=== PATIENT | female | born 1960 | race Caucasian/White ===

== ENCOUNTER 2016-11-26 05:49 | Inpatient (IN) | payer OTHER ==
[2016-11-26] VITALS (11 sets, daily range): BP systolic 94–152; BP diastolic 56–91; PULSE 60–98; RESP 18–24; TEMP 97.3–98.6; O2SAT 95–98
[~2016-11-26] VITALS: Ht 177.8 cm; Wt 71.0 kg
[~2016-11-26 05:49] MED LIST: HYDR-3533 PO; IBUP800T23 PO
[2016-11-26] MEDS ORDERED: SODIUM CHLOR 0.9% 1000 ML INJ 1,000 ML IV ONE (06:20)
--- NOTE | 2016-11-26 06:26 | PD ---
HPI Chief Complaint: Flank/Kidney Pain Time Seen by Provider: 06:20 Travel History International Travel<30 days: No Contact w/Intl Traveler<30days: No Traveled to known affect area: No History of Present Illness HPI 56-year-old female who was here earlier for back pain states the pain medication she was given at home is not helping. She states it is on the left side. It is severe. Pain is worse with movement. She denies other associated symptoms. She denies any trauma. Duration is past couple of days. PFSH Past Medical History Cancer: Yes (breast) Tetanus Vaccination: Unknown ?: Not Past Surgical History Other Surgery: Yes (right lumpectomy) Social History Alcohol Use: No Tobacco Use: Yes (10 CIG PER TODAY) Substance Use: No Allergies-Medications (Allergen,Severity, Reaction): Coded Allergies: Aspirin (Verified Allergy, Severe, Anaphylaxis, 11/26/16) Reported Meds & Prescriptions Reported Meds & Active Scripts Active Lortab (Hydrocodone-Acetaminophen) 5-325 Mg Tab 1-2 Tab PO Q6H PRN Ibuprofen 800 Mg Tab 800 Mg PO Q8H PRN Review of Systems Except as stated in HPI: all other systems reviewed are Neg Physical Exam Narrative GENERAL: Well-nourished, well-developed patient. SKIN: Warm and dry. HEAD: Normocephalic and atraumatic. EYES: No injection or drainage. ENT: No nasal drainage noted. NECK: Supple, trachea midline. CARDIOVASCULAR: Regular rate and rhythm RESPIRATORY: No increased effort. No accessory muscle use. GASTROINTESTINAL: Abdomen soft, non-tender, nondistended. EXTREMITIES: No edema. BACK: Nontender without obvious deformity in midline, tender to left lateral lumbar back area just below CVA. NEUROLOGICAL: Awake and alert. Motor and sensory grossly within normal limits. Normal speech. Data Data Last Documented VS Vital Signs Date Time Temp Pulse Resp B/P Pulse Ox O2 Delivery O2 Flow Rate FiO2 11/26/16 05:51 98.0 98 18 152/91 97 Room Air Orders Urinalysis - C+S If Indicated (11/26/16 06:10) Complete Blood Count With Diff (11/26/16 06:20) Basic Metabolic Panel (Bmp) (11/26/16 06:20) Ct Abd/Pel W/O Iv Contrast (11/26/16 06:20) Ecg Monitoring (11/26/16 06:20) Iv Access Insert/Monitor (11/26/16 06:20) Ketorolac Inj (Toradol Inj) (11/26/16 06:30) Ondansetron Inj (Zofran Inj) (11/26/16 06:30) Sodium Chloride 0.9% Flush (Ns Flush) (11/26/16 06:30) Sodium Chlor 0.9% 1000 Ml Inj (Ns 1000 M (11/26/16 06:20) Labs Laboratory Tests Test 11/26/16 11/26/16 06:15 06:25 Urine Color YELLOW Urine Turbidity CLEAR Urine pH 6.0 Urine Specific [place] 1.006 Urine Protein NEG mg/dL Urine Glucose (UA) NEG mg/dL Urine Ketones NEG mg/dL Urine Occult Blood NEG Urine Nitrite NEG Urine Bilirubin NEG Urine Urobilinogen LESS THAN 2.0 MG/DL Urine Leukocyte Esterase SMALL Urine RBC 1 /hpf Urine WBC 2 /hpf Urine Squamous Epithelial 1 /hpf Cells Urine Transitional Epithelial <1 /hpf Cells Urine Bacteria RARE /hpf Microscopic Urinalysis Comment CULT NOT INDICATED White Blood Count 10.8 TH/MM3 Red Blood Count 5.22 MIL/MM3 Hemoglobin 14.6 GM/DL Hematocrit 42.6 % Mean Corpuscular Volume 81.6 FL Mean Corpuscular Hemoglobin 28.0 PG Mean Corpuscular Hemoglobin 34.4 % Concent Red Cell Distribution Width 15.6 % Platelet Count 299 TH/MM3 Mean Platelet Volume 8.9 FL Neutrophils (%) (Auto) 74.1 % Lymphocytes (%) (Auto) 15.2 % Monocytes (%) (Auto) 7.7 % Eosinophils (%) (Auto) 2.2 % Basophils (%) (Auto) 0.8 % Neutrophils # (Auto) 8.0 TH/MM3 Lymphocytes # (Auto) 1.6 TH/MM3 Monocytes # (Auto) 0.8 TH/MM3 Eosinophils # (Auto) 0.2 TH/MM3 Basophils # (Auto) 0.1 TH/MM3 CBC Comment DIFF FINAL Differential Comment MDM Medical Decision Making Medical Screen Exam Complete: Yes Emergency Medical Condition: Yes Medical Record Reviewed: Yes (past history confirm) Differential Diagnosis UTI, stone, musculoskeletal Narrative Course Will check blood work, urine, CT and dose with Toradol and IV fluids and reevaluate Physician Communication Physician Communication dr gershen agrees to follow workup and reeval Hird,Nimisha May MD Nov 26, 2016 06:26
[2016-11-26 06:27] LABS: BACTERIA, URINE RARE /hpf; BLOOD, URINE NEG (NEG); COMMENT (UR) CULT NOT INDICATED; CULTURE IF INDICATED CULT NOT INDICATED; GLUCOSE,URINE NEG (NEG); KETONE, URINE NEG (NEG); NITRITE,URINE NEG (NEG); SQUAMOUS EPITHELIAL CELL URINE 1 /hpf (0-5); TRANSITIONAL EPI CELLS, URINE <1 /hpf; URINE COLOR YELLOW (YELLW/STRAW)
[2016-11-26] MEDS ORDERED: KETOROLAC TROMETHAMINE 30 MG/ML (IVP) VIAL IVP ONE (06:30)
[2016-11-26] MEDS ORDERED: SODIUM CHLORIDE 0.9% FLUSH 5 ML FLUSH IVF PRN (06:30)
[2016-11-26] MEDS ORDERED: ONDANSETRON HCL 4 MG/2 ML VIAL IVP ONE (06:30)
[2016-11-26 07:00] LABS: BASOPHIL # 0.1 TH/MM3 (0-0.2); BASOPHIL % 0.8 % (0.0-2.0); EOSINOPHIL # 0.2 TH/MM3 (0-0.4); EOSINOPHIL % 2.2 % (0.0-4.0); HEMATOCRIT 42.6 % (35.0-46.0); HEMO FLAGS DIFF FINAL; LYMPH % 15.2 % (9.0-44.0); LYMPHOCYTE # 1.6 TH/MM3 (1.0-4.8); MEAN CELL VOLUME 81.6 FL (80.0-100.0); MEAN CORPUSCULAR HGB CONC 34.4 % (32.0-36.0); MONO % 7.7 % (0.0-8.0); NEUT % 74.1 % (16.0-70.0); PLATELET COUNT 299 TH/MM3 (150-450); RED BLOOD COUNT 5.22 MIL/MM3 (4.00-5.30); RED CELL DISTRIBUTION WIDTH 15.6 % (11.6-17.2); WHITE BLOOD COUNT 10.8 TH/MM3 (4.0-11.0)
[2016-11-26 07:19] LABS: BICARBONATE 27.2 MEQ/L (21.0-32.0)
--- NOTE | 2016-11-26 07:30 | RADRPT ---
EXAM DATE/TIME: 11/26/2016 07:05 [place] COMPARISON: No previous studies available for comparison. INDICATIONS : Right side back pain. Prior history of left renal stones ORAL CONTRAST: No oral contrast ingested. RADIATION DOSE: 6.41 CTDIvol (mGy) MEDICAL HISTORY : Carcinoma, breast. SURGICAL HISTORY : left lumpectomu ENCOUNTER: Initial ACUITY: 3 days PAIN SCALE: 10/10 LOCATION: Right abdomen/back TECHNIQUE: Volumetric scanning of the abdomen and pelvis was performed. Using automated exposure control and ad justment of the mA and/or kV according to patient size, radiation dose was kept as low as reasonably achievable to obtain optimal diagnostic quality images. FINDINGS: LOWER LUNGS: The visualized lower lungs are clear. LIVER: Homogeneous density without lesion. There is no dilation of the biliary tree. No calcified gallston es. SPLEEN: Normal size without lesion. PANCREAS: Within normal limits. KIDNEYS: There is a 3 mm right upper pole stone, nonobstructing. No other renal or ureteral calculi. No hydron ephrosis or hydroureter. Urinary bladder has a normal CT appearance. ADRENAL GLANDS: 1 cm left adrenal nodule with low Hounsfield unit measurement. VASCULAR: There is no aortic aneurysm. BOWEL/MESENTERY: The stomach, small bowel, and colon demonstrate no acute abnormality. There is no free intraperitone al air or fluid. The appendix is well-visualized and normal. ABDOMINAL WALL: Within normal limits. RETROPERITONEUM: There is no lymphadenopathy. BLADDER: No wall thickening or mass. REPRODUCTIVE: Within normal limits. INGUINAL: There is no lymphadenopathy or hernia. MUSCULOSKELETAL: Innumerable blastic lesions are seen in the visualized osseous structures including right ninth rib a ll visualized lumbar, sacral vertebral bodies and also T12, bony pelvis and right greater than left p roximal femora. There are scattered areas of jerson cortical destruction of the left iliac bone. These findings are not compatible with Paget's disease. There is suspected nondisplaced pathologic fractur ing of both sacral ala, for example series 601 image 71. CONCLUSION: 1. Numerous and extensive blastic lesions of the visualized osseous structures as above compatible wi th metastatic disease. In a female patient, breast carcinoma would be most likely. There is nondispla nilton pathologic fracturing of both sacral ala. There is patchy cortical destruction of the left iliac bone. 2. 3 mm nonobstructing stone of the right kidney. 3. Benign-appearing left adrenal adenoma. Jag Mckeon MD on November 26, 2016 at 7:21 Board Certified Radiologist. This report was verified electronically.
[2016-11-26] MEDS ORDERED: MORPHINE SULFATE 4 MG/ML INJ IV PUSH ONE (07:45)
[2016-11-26] MEDS ORDERED: HYDROmorphone HCL PF 1 MG/ML VIAL IV PUSH ONE ×3 (08:15→15:30)
--- NOTE | 2016-11-26 08:27 | PD ---
Physical Exam Narrative Patient signed out to me by Dr. Lowe to follow-up CAT scan and labs. Please see her note for complete details on history and physical. Briefly, patient came in complaining of back pain. She has history of kidney stones in the past. Labs were sent and CT was ordered. Patient was given IV fluids as well as Toradol. Data Data Last Documented VS Vital Signs Date Time Temp Pulse Resp B/P Pulse Ox O2 Delivery O2 Flow Rate FiO2 11/26/16 08:45 20 11/26/16 08:16 65 128/77 97 Room Air 11/26/16 05:51 98.0 Orders Urinalysis - C+S If Indicated (11/26/16 06:10) Complete Blood Count With Diff (11/26/16 06:20) Basic Metabolic Panel (Bmp) (11/26/16 06:20) Ct Abd/Pel W/O Iv Contrast (11/26/16 06:20) Ecg Monitoring (11/26/16 06:20) Iv Access Insert/Monitor (11/26/16 06:20) Ketorolac Inj (Toradol Inj) (11/26/16 06:30) Ondansetron Inj (Zofran Inj) (11/26/16 06:30) Sodium Chloride 0.9% Flush (Ns Flush) (11/26/16 06:30) Sodium Chlor 0.9% 1000 Ml Inj (Ns 1000 M (11/26/16 06:20) Morphine Inj (Morphine Inj) (11/26/16 07:45) Hydromorphone Pf Inj (Dilaudid Pf Inj) (11/26/16 08:15) Hydromorphone Pf Inj (Dilaudid Pf Inj) (11/26/16 09:00) Admit Order (Ed Use Only) (11/26/16 ) Labs Laboratory Tests Test 11/26/16 11/26/16 06:15 06:25 Urine Color YELLOW Urine Turbidity CLEAR Urine pH 6.0 Urine Specific [place] 1.006 Urine Protein NEG mg/dL Urine Glucose (UA) NEG mg/dL Urine Ketones NEG mg/dL Urine Occult Blood NEG Urine Nitrite NEG Urine Bilirubin NEG Urine Urobilinogen LESS THAN 2.0 MG/DL Urine Leukocyte Esterase SMALL Urine RBC 1 /hpf Urine WBC 2 /hpf Urine Squamous Epithelial 1 /hpf Cells Urine Transitional Epithelial <1 /hpf Cells Urine Bacteria RARE /hpf Microscopic Urinalysis Comment CULT NOT INDICATED White Blood Count 10.8 TH/MM3 Red Blood Count 5.22 MIL/MM3 Hemoglobin 14.6 GM/DL Hematocrit 42.6 % Mean Corpuscular Volume 81.6 FL Mean Corpuscular Hemoglobin 28.0 PG Mean Corpuscular Hemoglobin 34.4 % Concent Red Cell Distribution Width 15.6 % Platelet Count 299 TH/MM3 Mean Platelet Volume 8.9 FL Neutrophils (%) (Auto) 74.1 % Lymphocytes (%) (Auto) 15.2 % Monocytes (%) (Auto) 7.7 % Eosinophils (%) (Auto) 2.2 % Basophils (%) (Auto) 0.8 % Neutrophils # (Auto) 8.0 TH/MM3 Lymphocytes # (Auto) 1.6 TH/MM3 Monocytes # (Auto) 0.8 TH/MM3 Eosinophils # (Auto) 0.2 TH/MM3 Basophils # (Auto) 0.1 TH/MM3 CBC Comment DIFF FINAL Differential Comment Sodium Level 137 MEQ/L Potassium Level 4.0 MEQ/L Chloride Level 101 MEQ/L Carbon Dioxide Level 27.2 MEQ/L Anion Gap 9 MEQ/L Blood Urea Nitrogen 13 MG/DL Creatinine 0.82 MG/DL Estimat Glomerular Filtration 72 ML/MIN Rate Random Glucose 120 MG/DL Calcium Level 9.4 MG/DL [facility] [place] Supervised Visit with RIGO: No Narrative Course CAT scan is significant for several lytic lesions throughout the spine as well as pathological fractures of the sacral ala. Patient has a history of breast cancer that was treated she says either 3 or 5 years ago. She reports having a mammogram 4 months ago that she was told was normal. She says she had a biopsy of her spine in [facility] and was told that it was normal. Patient states she knows she has cancer. She does not have any doctors here. Patient is in significant pain. Given morphine for pain. Patient states the morphine did not help, given 1 mg Dilaudid. Patient was placed in observation for pain management. Diagnosis Primary Impression: Osteolytic lesion due to metastasis Additional Impression: Low back pain Qualified Code: M54.5 - Midline low back pain without sciatica, unspecified chronicity Admitting Information Admitting Physician Requests: Observation Condition: Stable Noemy You MD Nov 26, 2016 08:27
[2016-11-26] MEDS ORDERED: MORPHINE SULFATE 4 MG/ML INJ IV PUSH PRN (10:30)
[2016-11-26] MEDS ORDERED: KETOROLAC TROMETHAMINE 30 MG/ML (IVP) VIAL IV PUSH ONE (11:30)
--- NOTE | 2016-11-26 11:33 | HHI.HP ---
[facility] Service Family Medicine Primary Care Physician No Primary Care Physician Admission Diagnosis Metastatic lesions to the spine, severe back pain Diagnoses: International Travel<30 Days: No Contact w/Intl Traveler<30days: No Known Affected Area: No History of Present Illness Patient is a 56-year-old woman with a history of breast cancer presents with intractable back pain, found to have lytic lesions and pathological fractures on imaging. Patient presents today with her boyfriend who she lives with, who is translating for us. She came to the emergency department today because her progressively worsening pain has become unbearable, she couldn't stand, and she hasn't slept in 48 hours despite taking 60 mg of morphine XR every 2 hours. She was first diagnosed and treated for breast cancer in 2012. She underwent lumpectomy and then partial mastectomy as well as radiation therapy in [place] at that time. She denied receiving any chemotherapy. About 4-5 months ago, while she was living hungry, they saw what looked like bone cancer on imaging of her back, did a bone biopsy, which did not show any cancer. For over a year, patient has had progressively worsening back pain, worse on the right than the left. Patient reports that the medication she received in the emergency department only relieved about 10% of her pain. (Luis Miguel Rider MD R1) Review of Systems Constitutional: DENIES: Fever, Chills Endocrine: DENIES: Polyuria (urinating only a small amount) Eyes: DENIES: Blurred vision, Vision loss, Double Vision Ears, nose, mouth, throat: DENIES: Ear Pain Respiratory: DENIES: Cough, Shortness of breath Cardiovascular: DENIES: Chest pain, Palpitations, Syncope, Dyspnea on Exertion Gastrointestinal: DENIES: Abdominal pain, Black stools, Bloody stools, Constipation, Diarrhea, Nausea, Vomiting, Difficulty Swallowing Genitourinary: DENIES: Dysuria Musculoskeletal: COMPLAINS OF: Back pain, DENIES: Joint pain, Muscle aches Integumentary: DENIES: Rash Neurologic: DENIES: Headache, Localized weakness, Paresthesias, Seizures ( Luis Miguel Rider MD R1) Past Family Social History Past Medical History denies any other medical problems besides breast cancer Past Surgical History spine biopsy Abdominoplasty Reported Medications XR morphine Zoledronic acid (Luis Miguel Rider MD R1) Allergies: Coded Allergies: Aspirin (Verified Allergy, Severe, Anaphylaxis, 11/26/16) Active Ordered Medications Current Medications Medications (Trade) Dose Ordered Sig/Dave Route Start Time Stop Time Status Last Admin Ketorolac Tromethamine 30 mg 30 mg Q6HR IV PUSH 11/26/16 18:00 12/01/16 17:59 (NS 1000 ml Inj) 1,000 ml @ 100 mls/hr Q10H IV 11/26/16 11:48 11/26/16 12:43 (NS Flush) 2 ml UNSCH PRN FLUSH 11/26/16 12:00 (NS Flush) 2 ml BID FLUSH 11/26/16 21:00 (Narcan Inj) 0.4 mg UNSCH PRN IV 11/26/16 12:00 (Lovenox Inj) 40 mg Q24H SQ 11/26/16 13:00 11/26/16 13:21 (Tylenol) 650 mg Q6H PRN PO 11/26/16 12:00 (Dilaudid Pf Inj) 0.5 mg Q3H PRN IV 11/26/16 12:00 (Habitrol 21 Mg Patch.24 Hr) 1 patch DAILY TD 11/26/16 14:45 11/26/16 14:49 Miscellaneous Information 1 DAILY TD 11/27/16 09:00 (Dilaudid Pf Inj) 2 mg Q3H PRN IV 11/26/16 18:00 (Oramorph Sr) 60 mg Q12H PO 11/27/16 04:00 (Msir) 30 mg Q4H PRN PO 11/26/16 17:00 Family History Her mother had diabetes and her father at 74 years old of leukemia. Social History Patient reports smoking half a pack to a pack per day for the past greater than 20 years since she was 23 years old. She denied any alcohol or illicit drug use. She lives with her boyfriend. She does not work. 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 They're working on getting her insurance through Medicare. (Luis Miguel Rider MD R1) Physical Exam Vital Signs Vital Signs Date Time Temp Pulse Resp B/P Pulse Ox O2 Delivery O2 Flow Rate FiO2 11/26/16 10:04 20 11/26/16 08:45 20 11/26/16 08:16 65 24 128/77 97 Room Air 11/26/16 07:48 20 11/26/16 07:48 20 11/26/16 05:51 98.0 98 18 152/91 97 Room Air Physical Exam GENERAL: This is a well-nourished, well-developed patient, who appears uncomfortable and on the verge of tears due to pain SKIN: No rashes, ecchymoses or lesions. Cool and dry. HEAD: Atraumatic. Normocephalic. EYES: Pupils equal round and reactive. Extraocular motions intact. No scleral icterus. No injection or drainage. ENT: Nose without bleeding, purulent drainage. Throat without erythema, tonsillar hypertrophy or exudate. Uvula midline. Airway patent. NECK: Trachea midline. No JVD or lymphadenopathy. Supple, nontender, no meningeal signs. CARDIOVASCULAR: Regular rate and rhythm without murmurs, gallops, or rubs. RESPIRATORY: Clear to auscultation. Breath sounds equal bilaterally. No wheezes , rales, or rhonchi. GASTROINTESTINAL: Abdomen soft, non-tender, nondistended. No guarding. BACK: 8 cm scar down the midline of the lumbar spine. Tender to palpation right greater than left. MUSCULOSKELETAL: Extremities without clubbing, cyanosis, or edema. No joint tenderness, effusion, or edema noted. No calf tenderness. NEUROLOGICAL: Awake and alert. Cranial nerves II through XII grossly intact. Motor and sensory grossly within normal limits. Normal speech. Laboratory Laboratory Tests Test 11/26/16 11/26/16 06:15 06:25 Urine Color YELLOW Urine Turbidity CLEAR Urine pH 6.0 Urine Specific [place] 1.006 Urine Protein NEG Urine Glucose (UA) NEG Urine Ketones NEG Urine Occult Blood NEG Urine Nitrite NEG Urine Bilirubin NEG Urine Urobilinogen LESS THAN 2.0 Urine Leukocyte Esterase SMALL Urine RBC 1 Urine WBC 2 Urine Squamous Epithelial 1 Cells Urine Transitional Epithelial <1 Cells Urine Bacteria RARE Microscopic Urinalysis Comment CULT NOT INDICATED White Blood Count 10.8 Red Blood Count 5.22 Hemoglobin 14.6 Hematocrit 42.6 Mean Corpuscular Volume 81.6 Mean Corpuscular Hemoglobin 28.0 Mean Corpuscular Hemoglobin 34.4 Concent Red Cell Distribution Width 15.6 Platelet Count 299 Mean Platelet Volume 8.9 Neutrophils (%) (Auto) 74.1 Lymphocytes (%) (Auto) 15.2 Monocytes (%) (Auto) 7.7 Eosinophils (%) (Auto) 2.2 Basophils (%) (Auto) 0.8 Neutrophils # (Auto) 8.0 Lymphocytes # (Auto) 1.6 Monocytes # (Auto) 0.8 Eosinophils # (Auto) 0.2 Basophils # (Auto) 0.1 CBC Comment DIFF FINAL Differential Comment Sodium Level 137 Potassium Level 4.0 Chloride Level 101 Carbon Dioxide Level 27.2 Anion Gap 9 Blood Urea Nitrogen 13 Creatinine 0.82 Estimat Glomerular Filtration 72 Rate Random Glucose 120 Calcium Level 9.4 (Luis Miguel Rider MD R1) Result Diagram: 11/26/1662411/26/16624 Imaging Last Impressions Abdomen/Pelvis CT 11/26/16619 Signed Impressions: Service Date/Time: , November 26, 2016 07:05 - CONCLUSION: 1. Numerous and extensive blastic lesions of the visualized osseous structures as above compatible with metastatic disease. In a female patient, breast carcinoma would be most likely. There is nondisplaced pathologic fracturing of both sacral ala. There is patchy cortical destruction of the left iliac bone. 2. 3 mm nonobstructing stone of the right kidney. 3. Benign-appearing left adrenal adenoma. Jag Mckeon MD Course In the emergency depart, patient received UA, normal saline 1 liter IV, Zofran 4 mg IV push 1, Toradol 30 mg IV push 1, CT abdomen and pelvis without contrast, BMP, CBC, morphine 4 mg IV push 1, Dilaudid 1 mg IV push 1, Dilaudid 0.5 mg IV push 1 (Luis Miguel Rider MD R1) Assessment and Plan Assessment and Plan Patient is a 56-year-old woman with a history of breast cancer s/p partial mastectomy and radiation therapy who presents with intractable back pain, found to have lytic lesions and pathological fractures on imaging. She presented to the emergency department today because her progressively worsening pain has become unbearable, she couldn't stand, and she hasn't slept in 48 hours despite taking 60 mg of morphine XR every 2 hours. Admitted for pain control and likely metastatic cancer workup. Code Status DNR/no code Discussed Condition With Patient seen and discussed with Dr. Tereso Duval and Dr. Daina Duval. (Luis Miguel Rider MD R1) Attending Attestation Patient seen and examined. Case reviewed and discussed with the resident team. Agree with plan of care as discussed with me and documented in the resident note. (Diana Duval MD) Problem List: (1) Osteolytic lesion due to metastasis Status: Acute Plan: Patient is a 56-year-old woman with a history of breast cancer s/p partial mastectomy and radiation therapy who presents with intractable back pain , found to have lytic lesions and pathological fractures on imaging. She presented to the emergency department today because her progressively worsening pain has become unbearable, she couldn't stand, and she hasn't slept in 48 hours despite taking 60 mg of morphine XR every 2 hours. Admitted for pain control and likely metastatic cancer workup. Consult medical oncology BMP, CBC, CA 15-3, CEA Normal saline IV 100 mL per hour Pain control discussed at length with pharmacy: * Tylenol 650 mA by mouth every 6 hours when necessary for pain 1-2 * Dilaudid 0.5 mg IV every 3 hours when necessary for pain 3-5 * Dilaudid 2 mg IV every 3 hours when necessary for pain 6-10 * Poor at all 30 mg IV push every 6 hours scheduled around the clock * Morphine SR 60 mg by mouth every 12 hours scheduled around the clock * Morphine IR 30 mg by mouth every 4 hours when necessary for breakthrough pain * If not sufficient, change morphine SR to fentanyl patch 50 g Lindsey-Colace one tab by mouth twice a day (2) Low back pain Status: Acute Plan: See assessment and plan above. (3) Nutrition, metabolism, and development symptoms Status: Acute Plan: Fluids: Maintenance fluids with normal saline IV 100 mL/h Electrolytes: Monitor and replete as needed Nutrition: Regular diet as tolerated GI prophylaxis: Not currently indicated at this time (4) No contraindication to deep vein thrombosis (DVT) prophylaxis Status: Acute Plan: Given history of cancer and likely metastatic disease on imaging, Lovenox is the preferred anticoagulant. Lovenox 40 mg subcutaneous every 12 hours (5) Tobacco use Status: Acute Plan: Patient smokes between half pack to a pack a day. Nicotine 21 mg patch 1 patch TD daily (Luis Miguel Rider MD R1) Physician Certification 2 Midnight Certification Type: Admission for Inpatient Services Order for Inpatient Services The services are ordered in accordance with Medicare regulations or non- Medicare payer requirements, as applicable. In the case of services not specified as inpatient-only, they are appropriately provided as inpatient services in accordance with the 2-midnight benchmark. Estimated LOS (days): 2 2 days is the estimated time the patient will need to remain in the hospital, assuming treatment plan goals are met and no additional complications. Post-Hospital Plan: Not yet determined (Luis Miguel Rider MD R1) Problem Qualifiers (1) Low back pain: Qualified Code: M54.5 - Midline low back pain without sciatica, unspecified chronicity Luis Miguel Rider MD R1 Nov 26, 2016 11:33 Diana Duval MD Nov 26, 2016 19:50
--- NOTE | 2016-11-26 11:58 | HHI.FPPN ---
Subjective Remarks Pt. seen, examined and discussed with the medicine team. This is a 56 yo female with known history of breast CA s/p right lumpectomy/partial mastectomy in 2012. She had been getting Zometa IV monthly until approximately 3 months ago. She is reportedly taking Morphine extended release 60 mg po q 6 hour until two days ago when she ran out. She has been having severe right lower back pain for the past 48 hours, unable to sleep, unable to get any relief. She does not have a doctor here; her morphine was from a doctor in [facility]. Her breast surgery was in [place]. Several months ago she had a bone biopsy of her vertebrae and was told she did not have cancer. She is here because of the severity of her pain. See H&P for this hospitalization for additional historical details. Other than the severe back pain noted, and occasional constipation, complete review of systems was completed and negative. Lives with her boyfriend, smokes a pack per day since age 23, no etoh or illicits. 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 Family history + for DM in Mom, dad of leukemia. Surgically had tummy tuck and bone biopsy and breast surgery for lump. Objective Vitals Vital Signs Date Time Temp Pulse Resp B/P Pulse Ox O2 Delivery O2 Flow Rate FiO2 11/26/16 10:04 20 11/26/16 08:45 20 11/26/16 08:16 65 24 128/77 97 Room Air 11/26/16 07:48 20 11/26/16 07:48 20 11/26/16 05:51 98.0 98 18 152/91 97 Room Air Result Diagram: 11/26/16 0625 11/26/16 0625 Other Results Laboratory Tests Test 11/26/16 11/26/16 06:15 06:25 Urine Color YELLOW Urine Turbidity CLEAR Urine pH 6.0 Urine Specific [place] 1.006 Urine Protein NEG mg/dL Urine Glucose (UA) NEG mg/dL Urine Ketones NEG mg/dL Urine Occult Blood NEG Urine Nitrite NEG Urine Bilirubin NEG Urine Urobilinogen LESS THAN 2.0 MG/DL Urine Leukocyte Esterase SMALL Urine RBC 1 /hpf Urine WBC 2 /hpf Urine Squamous Epithelial 1 /hpf Cells Urine Transitional Epithelial <1 /hpf Cells Urine Bacteria RARE /hpf Microscopic Urinalysis Comment CULT NOT INDICATED White Blood Count 10.8 TH/MM3 Red Blood Count 5.22 MIL/MM3 Hemoglobin 14.6 GM/DL Hematocrit 42.6 % Mean Corpuscular Volume 81.6 FL Mean Corpuscular Hemoglobin 28.0 PG Mean Corpuscular Hemoglobin 34.4 % Concent Red Cell Distribution Width 15.6 % Platelet Count 299 TH/MM3 Mean Platelet Volume 8.9 FL Neutrophils (%) (Auto) 74.1 % Lymphocytes (%) (Auto) 15.2 % Monocytes (%) (Auto) 7.7 % Eosinophils (%) (Auto) 2.2 % Basophils (%) (Auto) 0.8 % Neutrophils # (Auto) 8.0 TH/MM3 Lymphocytes # (Auto) 1.6 TH/MM3 Monocytes # (Auto) 0.8 TH/MM3 Eosinophils # (Auto) 0.2 TH/MM3 Basophils # (Auto) 0.1 TH/MM3 CBC Comment DIFF FINAL Differential Comment Sodium Level 137 MEQ/L Potassium Level 4.0 MEQ/L Chloride Level 101 MEQ/L Carbon Dioxide Level 27.2 MEQ/L Anion Gap 9 MEQ/L Blood Urea Nitrogen 13 MG/DL Creatinine 0.82 MG/DL Estimat Glomerular Filtration 72 ML/MIN Rate Random Glucose 120 MG/DL Calcium Level 9.4 MG/DL Imaging Last Impressions Abdomen/Pelvis CT 11/26/16 0620 Signed Impressions: Service Date/Time: October 07:05 - CONCLUSION: 1. Numerous and extensive blastic lesions of the visualized osseous structures as above compatible with metastatic disease. In a female patient, breast carcinoma would be most likely. There is nondisplaced pathologic fracturing of both sacral ala. There is patchy cortical destruction of the left iliac bone. 2. 3 mm nonobstructing stone of the right kidney. 3. Benign-appearing left adrenal adenoma. Jag Mckeon MD Objective Remarks O. CONSTITUTIONAL/GEN: normally nourished, in distress with severe right low back pain.. EYES: conjunctiva normal, PERRLA, EOMI. ENT: Mouth and pharynx normal. Dentures. NECK: thyroid midline, carotids symmetrical. Breasts: left is normal to palpation, right shows surgical changes with no palpable mass. LUNGS: clear A-P, respiratory effort is normal. CARDIOVASCULAR: RR without murmur or gallop. No significant edema. GI/ABD: soft without masses, without organomegaly. Scar from tummy-tuck. BACK: scar midline from bone bx; tender right flank to palpation. NEURO: No focal deficits. SKIN: color normal, no rashes noted. HEME/LYMPH: no bruising, petechia or significant adenopathy MUSC: back is normal in appearance. Extremities are normal in appearance. PSYCH/MENTAL STATUS: Alert and oriented x 3. A/P Assessment and Plan Metastatic breast cancer to spine and with pathologic nondisplaced fractures of both sacral ala. Attending Attestation Patient seen and examined. Case reviewed and discussed with the resident team. Agree with plan of care as discussed with me and documented in the resident note. Diana Duval MD Nov 26, 2016 11:58
[2016-11-26] MEDS ORDERED: SODIUM CHLORIDE 0.9% FLUSH 5 ML FLUSH FLUSH PRN (12:00)
[2016-11-26] MEDS ORDERED: ACETAMINOPHEN/HYDROcodone 325 MG/5 MG TAB PO PRN ×2 (12:00→16:45)
[2016-11-26] MEDS ORDERED: MORPHINE SULFATE 4 MG/ML INJ IV PRN (12:00)
[2016-11-26] MEDS ORDERED: NALOXONE HCL 0.4 MG/ML AMP IV PRN (12:00)
[2016-11-26] MEDS ORDERED: ACETAMINOPHEN 325 MG TAB PO PRN (12:00)
[2016-11-26] MEDS ORDERED: HYDROmorphone HCL PF 1 MG/ML VIAL IV PUSH PRN (12:00)
[2016-11-26] MEDS ORDERED: HYDROmorphone HCL PF 1 MG/ML VIAL IV PRN (12:00)
[2016-11-26] MEDS ORDERED: IBUPROFEN 400 MG TAB PO PRN (12:00)
[2016-11-26] MEDS: HYDROmorphone HCL PF 1 MG/ML VIAL IV PRN ×4 (12:43→21:35)
[2016-11-26] MEDS: SODIUM CHLOR 0.9% 1000 ML INJ 1,000 ML IV SCH ×2 (12:43→21:28)
[2016-11-26] MEDS: ENOXAPARIN SODIUM 40 MG/0.4 ML SYRINGE SQ SCH (13:21)
[2016-11-26] MEDS: NICOTINE 21 MG/24 HR PATCH TD SCH (14:49)
[2016-11-26] MEDS ORDERED: MORPHINE SULFATE 60 MG CONTROLLED RELEASE TAB PO ONE (15:30)
[2016-11-26] MEDS ORDERED: IBUPROFEN 800 MG TAB PO PRN (16:45)
[2016-11-26] MEDS: KETOROLAC TROMETHAMINE 30 MG/ML (IVP) VIAL IV PUSH SCH (17:00)
[2016-11-26] MEDS: MORPHINE SULFATE 30 MG TAB PO PRN ×2 (18:24→22:19)
--- NOTE | 2016-11-26 20:19 | MB ---
cc: LUPILLO LOUISE MD HEMATOLOGY/ONCOLOGY CONSULTATION NOTE DATE OF CONSULTATION 11/26/16 DATE OF 1960. REQUESTING PHYSICIAN Dr. Diana Duval. REASON FOR CONSULTATION Patient with numerous bony metastatic lesions involving the lumbar vertebral bodies as well as the pelvis. She has a reported history of breast carcinoma which was diagnosed about three years ago when she was living in [facility]. The oncology service has been consulted for further workup and evaluation and eventual management of what appears to be metastatic breast carcinoma. CHIEF COMPLAINT The patient reports severe lower back pain as well as involvement of the right hip. She reports the pain has been progressively increasing over the past four months. HISTORY OF PRESENT ILLNESS Ms. Jarrell is a 56-year-old female who reports being originally from [facility]. She has had a diagnosis of breast carcinoma which originally involved the right breast. She tells me the tumor had grown through the skin and was treated initially in [facility] where they tried to resect it with a partial mastectomy and then delivered radiation I believe. Her history is somewhat odd as her treatment history has been fragmented between [facility], [facility] and she is now in the [place]. The circumstances of her being here are not quite clear. She tells me that she has [place] in [place] for some time but has never really been cared for here. At any rate, I have no pathologic findings to work with. I am going with what the patient and her boyfriend tell me verbally. The patient reports undergoing a partial mastectomy. She denies ever having had lymph nodes evaluated. She underwent radiation after surgery and then underwent some form of homeopathic treatment. About six months ago, she began to develop back pain. She was in [facility] at that time and underwent a biopsy of her lower vertebral bodies and she has a scar to show me which is in the midline of the mid lumbar vertebral body area. She tells me she was told by a professor in [facility] that she had no cancer. She later tells me she went to see an oncologist who put her on Femara which is an aromatase inhibitor commonly used in treatment of metastatic breast cancer. She told me she was given 100 tablets, which ran out some months ago. She also reports being given Zometa which is a drug commonly used for management of bony metastatic lesions. She then came to the [place] and has been awaiting insurance approval and disability to come see a physician. Her pain became unbearable and she presented to [facility] emergency department initially on 11/25/2016. She was discharged home from the ER with pain medications. She came back earlier today on the because the pain was unbearable. Imaging studies including a CT scan of the abdomen and pelvis revealed numerous and extensive blastic lesions visualized in the osseous structures above which were compatible metastatic disease. A 3 mm nonobstructing stone was noted in the right kidney. Benign appearing adrenal adenomas were identified. The oncology service has been consulted for further workup and management. PAST MEDICAL HISTORY 1. Right-sided breast cancer. 2. Ongoing tobaccoism. 3. Bony metastases. PAST SURGICAL HISTORY 1. Right partial mastectomy 2. Back surgery. FAMILY HISTORY Mom of complications of diabetes. Father of complications of leukemia. No known diagnosis of breast cancer in the family. SOCIAL HISTORY The patient is [place]. She has one daughter who is in her early 30s. The patient is an active smoker. 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 She is unemployed at this time. ALLERGIES ASPIRIN NSAIDs - rashes and swelling. MEDICATIONS Current inpatient 1. Normal saline 100 cc/hour. 2. Tylenol 650 mg p.o. q.6 h 3. Lovenox 40 mg subcu once daily (on hold). 4. Dilaudid 0.5 mg IV q.3 h. 5. Ketorolac 30 mg IV q.6 h 6. Morphine sulfate long-acting 60 mg p.o. q. 12 hours. 7. Nicotine patches. REVIEW OF SYSTEMS A 13-point review of systems is obtained. The following is the pertinent positives: The patient reports fatigue, weakness, decreased appetite. HEENT: Denies headaches, blurry vision, difficulty swallowing. RESPIRATORY: Denies difficulty breathing, cough or hemoptysis, pleuritic chest pain. CARDIOVASCULAR: Denies angina-like chest pain, PND, orthopnea, lower extremity swelling. GI: Denies nausea, vomiting, diarrhea, hematochezia or melena. MUSCULOSKELETAL: Please see HPI for severe back pain and hip pain. COLLAR BASTER JUMPBASTING: No focal sensory motor deficits other than some neuropathy in her left hand. PHYSICAL EXAMINATION VITAL SIGNS: Temperature 97.3 degrees Fahrenheit, heart rate 74 beats a minute, respiratory rate 18 breaths per minute, blood pressure 103/56, O2 sats 98% on room air. GENERAL APPEARANCE: Ms. Jarrell is a middle-aged female. She is laying in bed. She is in obvious discomfort. She speaks some Hungarian but mostly relies on her male stockroom attendant for translation. HEENT: Head atraumatic, normocephalic, conjunctivae are non-pale, sclerae anicteric, EOMI, PERRLA, oral exam no pharyngeal erythema. NECK: No palpable cervical or supraclavicular adenopathy. RESPIRATORY: Good air movement bilaterally. No added breath sounds. CARDIOVASCULAR: Regular rate and rhythm, S1-S2. No obvious murmurs, rubs or gallops. BREASTS: Left breast Without any skin changes, no masses, no lumps, no bumps, no axillary lymphadenopathy. Right breast - She has a large scar and crater involving the central portion of the breast. The nipple has been resected. There are no obvious masses remaining within the right breast, no obvious skin lesions, no axillary lymphadenopathy. ABDOMEN: Thin belly, soft, nontender, nondistended. She has a horizontal tummy tuck incision noted. No masses noted, no palpable hepatosplenomegaly. LOWER EXTREMITIES: No pretibial edema. No calf tenderness. COLLAR BASTER JUMPBASTING: No focal sensory or motor deficits. She does have some weakness of the left hand. LABORATORY FINDINGS Blood work dated 11/26/2016: WBC count 10.8, hemoglobin 14.6 gm/dl, hematocrit 42.6%, platelet count 299, absolute neutrophil count eight. Chemistries: Sodium 137, potassium four, chloride 101, bicarbonate 27.2, BUN 13, creatinine 0.82, EGFR 72, random glucose 120, calcium 9.4. IMAGING STUDIES CT scan of the abdomen and pelvis dated 11/26/2016: Numerous and extensive blastic lesions of the visualized osseous structures as above. Compatible with metastatic disease. Concerning for metastatic breast carcinoma given her history of breast carcinoma. There is patchy cortical destruction of the left iliac bone. A 3 mm nonobstructing stone in the left kidney. ASSESSMENT Ms. Jarrell is a 56-year-old female with a reported history of breast carcinoma. Based on her history (I have no formal documentation or medical records) her care has been fragmented between [facility], [facility] and [place]. She reports undergoing a partial mastectomy whilst living in [place] in 2012. This was followed by some sort of homeopathic i.e. non-conventional treatment. She denies ever having been on chemotherapy or hormonal therapy immediately after surgery. She is not aware of what type of breast cancer she had or whether it was hormone receptor positive for her2/ positive. She is not aware of her staging either. At any rate, but six months ago she began to develop severe back pain. She underwent workup and imaging and eventually was assessed to have metastatic breast carcinoma by a physician in [facility]. She tells me that all the biopsies she had on her back yielded no evidence of cancer. Despite this, she reports being on Zometa which is a drug we commonly use for management of bony metastatic disease to help decrease the risk of pathologic fractures. She was also on Femara which is used in two settings in breast carcinoma which include adjuvant systemic therapy with individuals to help decrease the risk of surgically resected breast cancer or it is used in the setting of palliative endocrine treatment for metastatic breast carcinoma. It appears to me that she likely was diagnosed or assessed to have metastatic breast cancer while she was living in [facility]. She ran out of the Femara some months ago and has been on no treatment since then. She presents to the emergency department with severe intractable lower back pain and hip pain. Imaging studies are consistent with extensively metastatic disease to the vertebral bodies as well as to the pelvis. RECOMMENDATIONS 1. Likely diagnosis of metastatic breast carcinoma: I have requested the patient to try to have her previous records and biopsy reports forwarded. I have also requested repeating serum tumor markers including CEA and CA 15-3. I have informed the patient that she will likely require a CT-guided biopsy of a parts representative lesion. Prior to doing so, I would like her to undergo restaging imaging including a CT scan of the thorax and a whole-body bone scan. For management of her pain control, she will require some combination of long and short acting opioids which she is on. She may also require palliative radiation. At this point, I am not certain how the logistics of this will play out, but I will forward her face sheet to my new patient referral office as I am not certain if this patient will qualify for the patients assistance program here in [place]. MD KATHARINE Recio/ /5:25 PM /7:06 PM [facility]SI
--- NOTE | 2016-11-26 20:45 | RADRPT ---
EXAM DATE/TIME: 11/26/2016 20:19 [facility] COMPARISON: CT ABDOMEN & PELVIS W/O CONTRAST, November 26, 2016, 7:05. INDICATIONS : Metastatic breast cancer. Possible lung mass. RADIATION DOSE: 3.52 CTDIvol (mGy) MEDICAL HISTORY : Carcinoma, breast. SURGICAL HISTORY : Right lumpectomy. ENCOUNTER: Initial ACUITY: 1 day PAIN SCALE: 0/10 LOCATION: chest TECHNIQUE: Volumetric scanning of the chest was performed. Using automated exposure control and adjustment of t he mA and/or kV according to patient size, radiation dose was kept as low as reasonably achievable to obtain optimal diagnostic quality images. FINDINGS: There is atelectasis and/or scarring of the right lung base and could be on the basis of previous rad iation therapy to the right breast. Within this is a nodular area that measures about 9 mm in size, s eries 3 image 44. Lungs are otherwise clear. There is mild to moderate emphysema. There is an AP window lymph node and measures about 15 mm in greatest short axis dimension. Scat tered mediastinal lymph nodes elsewhere measure up to 8 mm in greatest short axis dimension seen. The re is no axillary lymphadenopathy. Lumpectomy changes are seen in the right breast. Widespread sclerotic metastatic disease demonstrated of the visualized osseous structures, inclu ding essentially all of the thoracic vertebra including the posterior elements, most ribs, most consp icuous of the left first through fourth. The manubrium and to a slightly lesser extent sternum, both clavicles and both proximal humeri. There is a lesion of the left humeral head that measures at least 3.2 cm in size. There is also a large lesion of the left scapula that includes the glenoid. There is a large lesion of the right scapula that primarily involves the base of the spine. Focal expansion a nd cortical thinning without a well-defined fracture line seen in the right pedicle and lamina of T. 10, series 4 image 44. The T9 vertebral body is almost completely replaced by sclerosis and it has mi ld loss of height. CONCLUSION: 1. Scarring versus atelectasis of the right lung base and within the mass a focal nodular area as abo ve. This should be followed. Lungs are otherwise clear. 2. Widespread blastic metastatic disease of the visualized osseous structures as delineated above. Fo eva cortical thinning right pedicle and lamina of T10 and mild compression deformity of T9 vertebral body 3. Right breast lumpectomy changes. 4. Enlarged mediastinal lymph node in the AP window of concern for metastatic disease. No axillary ly mphadenopathy demonstrated. Jag Mckeon MD on November 26, 2016 at 20:36 Board Certified Radiologist. This report was verified electronically.
[2016-11-26] MEDS ORDERED: MORPHINE SULFATE 60 MG CONTROLLED RELEASE TAB PO SCH (21:00)
[2016-11-26] MEDS: DOCUSATE SODIUM 50 MG/SENNA 8.6 MG TAB PO SCH (21:28)
[2016-11-26] MEDS: SODIUM CHLORIDE 0.9% FLUSH 5 ML FLUSH FLUSH SCH (21:28)
[2016-11-27] VITALS (8 sets, daily range): BP systolic 102–131; BP diastolic 57–64; PULSE 58–72; RESP 16–18; TEMP 96.5–97.9; O2SAT 93–99
[2016-11-27] MEDS: KETOROLAC TROMETHAMINE 30 MG/ML (IVP) VIAL IV PUSH SCH ×4 (00:07→17:28)
[2016-11-27] MEDS: HYDROmorphone HCL PF 1 MG/ML VIAL IV PRN ×7 (00:14→22:25)
[2016-11-27] MEDS: MORPHINE SULFATE 30 MG TAB PO PRN ×4 (02:24→18:34)
[2016-11-27] MEDS: MORPHINE SULFATE 60 MG CONTROLLED RELEASE TAB PO SCH ×2 (03:03→14:06)
[2016-11-27 05:35] LABS: BASOPHIL # 0.1 TH/MM3 (0-0.2); BASOPHIL % 0.9 % (0.0-2.0); EOSINOPHIL # 0.3 TH/MM3 (0-0.4); EOSINOPHIL % 3.8 % (0.0-4.0); HEMATOCRIT 38.5 % (35.0-46.0); HEMO FLAGS DIFF FINAL; LYMPH % 26.8 % (9.0-44.0); LYMPHOCYTE # 1.8 TH/MM3 (1.0-4.8); MEAN CELL VOLUME 82.6 FL (80.0-100.0); MEAN CORPUSCULAR HEMOGLOBIN 26.9 PG (27.0-34.0); MEAN CORPUSCULAR HGB CONC 32.5 % (32.0-36.0); MONO % 8.5 % (0.0-8.0); PLATELET COUNT 208 TH/MM3 (150-450); RED BLOOD COUNT 4.66 MIL/MM3 (4.00-5.30); RED CELL DISTRIBUTION WIDTH 15.6 % (11.6-17.2); WHITE BLOOD COUNT 6.6 TH/MM3 (4.0-11.0)
[2016-11-27 06:02] LABS: BICARBONATE 24.9 MEQ/L (21.0-32.0); POTASSIUM 4.5 MEQ/L (3.5-5.1)
[2016-11-27] MEDS: SODIUM CHLORIDE 0.9% FLUSH 5 ML FLUSH FLUSH SCH ×2 (09:00→20:36)
[2016-11-27] MEDS: REMOVE OLD PATCH TD SCH (09:00)
[2016-11-27] MEDS: NICOTINE 21 MG/24 HR PATCH TD SCH (09:16)
[2016-11-27] MEDS: SODIUM CHLOR 0.9% 1000 ML INJ 1,000 ML IV SCH ×2 (09:17→17:27)
[2016-11-27] MEDS: DOCUSATE SODIUM 50 MG/SENNA 8.6 MG TAB PO SCH ×2 (09:18→20:34)
--- NOTE | 2016-11-27 12:11 | HHI.FPPN ---
Subjective Remarks events overnight. Afebrile vital signs stable. Patient reports no pain at this time. She also reports that she is moving her bowels regularly. She reports that she did not get any sleep last night. (Luis Miguel Rider MD R1) Objective Vitals Vital Signs Date Time Temp Pulse Resp B/P Pulse Ox O2 Delivery O2 Flow Rate FiO2 11/27/16 09:45 98 11/27/16 08:00 96.6 61 16 105/57 98 11/27/16 06:26 20 11/27/16 04:00 96.8 58 18 102/62 93 11/27/16 04:00 20 11/27/16 04:00 20 11/27/16 03:10 20 11/26/16 23:18 98.1 63 18 94/59 97 11/26/16 21:32 115/67 11/26/16 20:20 75 11/26/16 20:00 98 11/26/16 19:59 98.6 66 20 105/68 98 11/26/16 18:00 60 11/26/16 16:49 16 11/26/16 16:49 16 11/26/16 16:10 16 11/26/16 14:38 97.3 74 18 103/56 98 11/26/16 13:19 20 11/26/16 12:37 62 20 122/75 97 Room Air I/O 11/26/16 11/26/16 11/26/16 11/27/16 11/27/16 11/27/16 07:00 15:00 23:00 07:00 15:00 23:00 Intake Total 143 ml 792 ml Balance 143 ml 792 ml Intake Oral 120 ml 360 ml IV Total 23 ml 432 ml # Voids 5 2 # Bowel Movements 0 0 (Luis Miguel Rider MD R1) Result Diagram: 11/27/16 0440 11/27/16 0440 Imaging Last Impressions Bone Scan Nuclear Medicine 11/27/16 0000 Signed Impressions: Service Date/Time: Sunday, November 27, 2016 12:08 - CONCLUSION: Diffuse bony metastatic disease. Ted Castillo MD Abdomen/Pelvis CT 11/26/16 0620 Signed Impressions: Service Date/Time: October 07:05 - CONCLUSION: 1. Numerous and extensive blastic lesions of the visualized osseous structures as above compatible with metastatic disease. In a female patient, breast carcinoma would be most likely. There is nondisplaced pathologic fracturing of both sacral ala. There is patchy cortical destruction of the left iliac bone. 2. 3 mm nonobstructing stone of the right kidney. 3. Benign-appearing left adrenal adenoma. Jag Mckeon MD Chest CT 11/26/16 0000 Signed Impressions: Service Date/Time: October 20:19 - CONCLUSION: 1. Scarring versus atelectasis of the right lung base and within the mass a focal nodular area as above. This should be followed. Lungs are otherwise clear. 2. Widespread blastic metastatic disease of the visualized osseous structures as delineated above. Focal cortical thinning right pedicle and lamina of T10 and mild compression deformity of T9 vertebral body 3. Right breast lumpectomy changes. 4. Enlarged mediastinal lymph node in the AP window of concern for metastatic disease. No axillary lymphadenopathy demonstrated. Jag Mckeon MD Objective Remarks O. CONSTITUTIONAL/GEN: normally nourished, in no distress today EYES: conjunctiva normal, PERRLA, EOMI. ENT: Mouth and pharynx normal. NECK: thyroid midline, carotids symmetrical. Breasts: left is normal to palpation, right shows surgical changes with no palpable mass. LUNGS: Clear to auscultation bilaterally, respiratory effort is normal. CARDIOVASCULAR: RRR without murmur or gallop. No significant edema. GI/ABD: soft without masses, without organomegaly. Scar from tummy-tuck. BACK: scar midline from bone bx NEURO: No focal deficits. SKIN: color normal, no rashes noted. HEME/LYMPH: no bruising, petechia or significant adenopathy MUSC: back is normal in appearance. Extremities are normal in appearance. PSYCH/MENTAL STATUS: Alert and oriented x 3. (Luis Miguel Rider MD R1) A/P Assessment and Plan Patient is a 56-year-old woman with a history of breast cancer s/p partial mastectomy and radiation therapy who presents with intractable back pain, found to have lytic lesions and pathological fractures on imaging. She presented to the emergency department today because her progressively worsening pain has become unbearable, she couldn't stand, and she hasn't slept in 48 hours despite taking 60 mg of morphine XR every 2 hours. Admitted for pain control and likely metastatic cancer workup. (Luis Miguel Rider MD R1) Attending Attestation No events overnight. Patient seen and examined. Case reviewed and discussed with the resident team. Agree with plan of care as discussed with me and documented in the resident note. (Diana Duval MD) Problem List: (1) Osteolytic lesion due to metastasis Status: Acute Plan: Patient is a 56-year-old woman with a history of breast cancer s/p partial mastectomy and radiation therapy who presents with intractable back pain , found to have lytic lesions and pathological fractures on imaging. She presented to the emergency department today because her progressively worsening pain has become unbearable, she couldn't stand, and she hasn't slept in 48 hours despite taking 60 mg of morphine XR every 2 hours. Admitted for pain control and likely metastatic cancer workup. Consult medical oncology. 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 BMP, CBC, CA 15-3, CEA Normal saline IV 100 mL per hour Pain control discussed at length with pharmacy: * Tylenol 650 mA by mouth every 6 hours when necessary for pain 1-2 * Dilaudid 0.5 mg IV every 3 hours when necessary for pain 3-5 * Dilaudid 2 mg IV every 3 hours when necessary for pain 6-10 * Poor at all 30 mg IV push every 6 hours scheduled around the clock * Morphine SR 60 mg by mouth every 12 hours scheduled around the clock * Morphine IR 30 mg by mouth every 4 hours when necessary for breakthrough pain * If not sufficient, change morphine SR to fentanyl patch 50 g Lindsey-Colace one tab by mouth twice a day MiraLAX by mouth scheduled daily (2) Low back pain Status: Acute Plan: See assessment and plan above. (3) Tobacco use Status: Acute Plan: Patient smokes between half pack to a pack a day. Nicotine 21 mg patch 1 patch TD daily (4) Insomnia Status: Acute Plan: Patient reports getting no sleep last night. Ativan 2mg PO q4h for insomnia or anxiety (5) Nutrition, metabolism, and development symptoms Status: Acute Plan: Fluids: Maintenance fluids with normal saline IV 100 mL/h Electrolytes: Monitor and replete as needed Nutrition: Regular diet as tolerated GI prophylaxis: Not currently indicated at this time (6) No contraindication to deep vein thrombosis (DVT) prophylaxis Status: Acute Plan: Given history of cancer and likely metastatic disease on imaging, Lovenox is the preferred anticoagulant. Lovenox 40 mg subcutaneous every 12 hours on hold for anticipated CT-guided biopsy (Luis Miguel Rider MD R1) Problem Qualifiers (1) Low back pain: Qualified Code: M54.5 - Midline low back pain without sciatica, unspecified chronicity Luis Miguel Rider MD R1 Nov 27, 2016 12:11 Diana Duval MD Nov 27, 2016 15:39
--- NOTE | 2016-11-27 13:26 | RADRPT ---
EXAM DATE/TIME: 11/27/2016 12:08 [place] COMPARISON: CT THORAX W/O CONTRAST, November 26, 2016, 20:19. PRIOR BONE SCANS: No correlative bone scan available for comparison. INDICATIONS : Metastatic disease. Spine lesions with lower back pain and right hip pain for three months. DOSE: 31.2 mCi Tc99m MDP IV MEDICAL HISTORY : Carcinoma, breast. Hypertension. SURGICAL HISTORY : Partial mastectomy . ENCOUNTER: Initial ACUITY: 3 months PAIN SCALE: 9/10 LOCATION: Back. TECHNIQUE: Three hours post intravenous administration of radiotracer, whole body bone scan imaging was performe d. FINDINGS: Multiple areas of increased uptake are seen throughout the axial and appendicular skeleton characteri stic for diffuse bony metastatic disease. These areas include the cervical spine, thoracic spine, lum bar spine, pelvis, proximal right femur, proximal left humerus, left ribs. CONCLUSION: Diffuse bony metastatic disease. Ted Castillo MD on November 27, 2016 at 13:22 Board Certified Radiologist. This report was verified electronically.
[2016-11-27] MEDS ORDERED: TEMAZEPAM 15 MG CAP PO PRN (14:45)
[2016-11-27] MEDS: POLYETHYLENE GLYCOL 17 GM PKG PO SCH (14:47)
[2016-11-27] MEDS ORDERED: LORazepam 1 MG TAB PO PRN (16:00)
[2016-11-27] MEDS: LORazepam 2 MG TAB PO PRN ×2 (17:28→22:24)
[2016-11-28] VITALS (8 sets, daily range): BP systolic 99–104; BP diastolic 57–64; PULSE 64–77; RESP 16–22; TEMP 96.7–97.9; O2SAT 96–99
[2016-11-28] MEDS: KETOROLAC TROMETHAMINE 30 MG/ML (IVP) VIAL IV PUSH SCH ×5 (00:14→23:05)
[2016-11-28] MEDS: MORPHINE SULFATE 60 MG CONTROLLED RELEASE TAB PO SCH ×2 (04:16→15:59)
[2016-11-28] MEDS: SODIUM CHLOR 0.9% 1000 ML INJ 1,000 ML IV SCH (04:17)
[2016-11-28 05:43] LABS: HEMATOCRIT 36.9 % (35.0-46.0); MEAN CELL VOLUME 82.7 FL (80.0-100.0); MEAN CORPUSCULAR HGB CONC 32.7 % (32.0-36.0); PLATELET COUNT 169 TH/MM3 (150-450); RED BLOOD COUNT 4.46 MIL/MM3 (4.00-5.30); RED CELL DISTRIBUTION WIDTH 15.6 % (11.6-17.2); REVIEW FLAG FINAL; WHITE BLOOD COUNT 6.3 TH/MM3 (4.0-11.0)
[2016-11-28 06:09] LABS: BICARBONATE 23.1 MEQ/L (21.0-32.0); POTASSIUM 4.4 MEQ/L (3.5-5.1)
--- NOTE | 2016-11-28 08:35 | PD.ONC.PN ---
Subjective Subjective Remarks Afebrile overnight. Pt resting in bed on approach in no distress. Awakens easily to verbal stimuli. She states her pain is completely gone right now with her current pain regimen. She denies SOB. Objective Data Date Time Temp Pulse Resp B/P Pulse Ox O2 Delivery O2 Flow Rate FiO2 11/28/16 08:02 96.7 77 16 99/59 98 11/28/16 04:00 97.0 73 20 100/64 98 11/28/16 00:00 97.9 64 18 104/63 98 11/27/16 20:00 97.9 72 16 123/60 98 11/27/16 19:45 67 11/27/16 16:32 96.5 64 16 131/64 98 11/27/16 12:00 97.0 60 16 113/61 99 11/27/16 09:45 98 11/28/16 11/28/16 11/28/16 06:59 14:59 22:59 Intake Total 1220 ml Balance 1220 ml Result Diagram: 11/28/16 0447 11/28/16 0447 Laboratory Results Laboratory Tests Test 11/28/16 04:47 White Blood Count 6.3 TH/MM3 Red Blood Count 4.46 MIL/MM3 Hemoglobin 12.1 GM/DL Hematocrit 36.9 % Mean Corpuscular Volume 82.7 FL Mean Corpuscular Hemoglobin 27.0 PG Mean Corpuscular Hemoglobin 32.7 % Concent Red Cell Distribution Width 15.6 % Platelet Count 169 TH/MM3 Mean Platelet Volume 9.2 FL Sodium Level 143 MEQ/L Potassium Level 4.4 MEQ/L Chloride Level 110 MEQ/L Carbon Dioxide Level 23.1 MEQ/L Anion Gap 10 MEQ/L Blood Urea Nitrogen 13 MG/DL Creatinine 0.58 MG/DL Estimat Glomerular Filtration 108 ML/MIN Rate Random Glucose 97 MG/DL Calcium Level 8.2 MG/DL Imaging Studies Last Impressions Bone Scan Nuclear Medicine 11/27/16 0000 Signed Impressions: Service Date/Time: Sunday, November 27, 2016 12:08 - CONCLUSION: Diffuse bony metastatic disease. Ted Castillo MD Abdomen/Pelvis CT 11/26/16 0620 Signed Impressions: Service Date/Time: October 07:05 - CONCLUSION: 1. Numerous and extensive blastic lesions of the visualized osseous structures as above compatible with metastatic disease. In a female patient, breast carcinoma would be most likely. There is nondisplaced pathologic fracturing of both sacral ala. There is patchy cortical destruction of the left iliac bone. 2. 3 mm nonobstructing stone of the right kidney. 3. Benign-appearing left adrenal adenoma. Jag Mckeon MD Chest CT 11/26/16 0000 Signed Impressions: Service Date/Time: October 20:19 - CONCLUSION: 1. Scarring versus atelectasis of the right lung base and within the mass a focal nodular area as above. This should be followed. Lungs are otherwise clear. 2. Widespread blastic metastatic disease of the visualized osseous structures as delineated above. Focal cortical thinning right pedicle and lamina of T10 and mild compression deformity of T9 vertebral body 3. Right breast lumpectomy changes. 4. Enlarged mediastinal lymph node in the AP window of concern for metastatic disease. No axillary lymphadenopathy demonstrated. Jag Mckeon MD Administered Medications Medications (Trade) Dose Ordered Sig/Dave Route PRN Reason Start Time Stop Time Status Last Admin Dose Admin Ketorolac Tromethamine 30 mg 30 mg Q6HR IV PUSH 11/26/16 18:00 12/01/16 17:59 11/28/16 00:14 Sodium Chloride (NS 1000 ml Inj) 1,000 ml @ 100 mls/hr Q10H IV 11/26/16 11:48 11/28/16 04:17 IV Flush (NS Flush) 2 ml BID FLUSH 11/26/16 21:00 11/26/16 21:28 Enoxaparin Sodium (Lovenox Inj) 40 mg Q24H SQ 11/26/16 13:00 Hold 11/26/16 13:21 Nicotine (Habitrol 21 Mg Patch.24 Hr) 1 patch DAILY TD 11/26/16 14:45 11/27/16 09:16 Miscellaneous Information 1 DAILY TD 11/27/16 09:00 11/27/16 09:00 Hydromorphone HCl (Dilaudid Pf Inj) 2 mg Q3H PRN IV Pain 6-10;if unable to take PO 11/26/16 18:00 11/27/16 22:25 Morphine Sulfate (Oramorph Sr) 60 mg Q12H PO 11/27/16 04:00 11/28/16 04:16 Morphine Sulfate (Msir) 30 mg Q4H PRN PO BREAKTHROUGH PAIN 11/26/16 17:00 11/27/16 18:34 Senna/Docusate Sodium (Lindsey-Colace) 1 tab BID PO 11/26/16 21:00 11/27/16 20:34 Polyethylene Glycol (Miralax) 17 gm DAILY PO 11/27/16 14:45 11/27/16 14:47 Lorazepam (Ativan) 2 mg Q4H PRN PO anxiety 11/27/16 17:00 11/27/16 22:24 Objective Remarks GENERAL: Middle aged female, lying in bed in no distress. SKIN: Warm and dry. HEAD: Normocephalic. EYES: No injection or drainage. NECK: Supple, trachea midline. CARDIOVASCULAR: +S1/S2. No murmur appreciated. RESPIRATORY: Breathing easy and unlabored. Lungs clear to auscultation. GASTROINTESTINAL: Abdomen soft, non-tender, nondistended. EXTREMITIES: No cyanosis, or edema. NEUROLOGICAL: No obvious focal deficit. Awake, alert, and oriented x3. Assessment/Plan Problem List: (1) Metastatic breast cancer Status: Acute Plan: -- CA 15-3 elevated at 157.1. -- Complete staging -- Pt started on Arimidex -- She previously was on Femara but she reports being out of this for a few months. Hx: The patient was originally treated in [place] with a partial mastectomy and radiation. She has no records from her treatment and we have no pathology reports. She was previously on Femara but has been out of this medication for a few months. She also reports previously being on Zometa. Since being in the [facility] she has been attempting to get insurance and disability to see a physician. Her pain was intense and she came into the ER on 11/[address] scan of the abdomen and pelvis showed numerous and extensive blastic lesions. (2) Osteolytic lesion due to metastasis Status: Acute Plan: -- We will consult IR to attempt to get a biopsy of one of the lesions. -- Pt's pain controlled with current pain regimen of short and long acting medications. Assessment 56 y/o female who presents to the hospital with severe pain. Numerous and extensive blastic lesions consistent with metastases were found on CT abdomen and pelvis. Plan 1. Consult IR to get biopsy of a respresentative lesion. 2. Continue Arimidex 3. Continue pain medications. 4. Will start lovenox for DVT prophylaxis after biopsy complete. 5. She may require palliative radiation. 6. Supportive care. Attending Statement The exam, history, and the medical decision-making described in the above note were completed with the assistance of the mid-level provider. I reviewed and agree with the findings presented. I attest that I had a [id number] encounter with the patient on the same day, and personally performed and documented my assessment and findings in the medical record. Pain better controlled. No hypercalcemia. Started on Arimidex. Await biopsy of bone lesion. Clementina Krishnamurthy Nov 28, 2016 08:35 Mahad Terry MD Nov 28, 2016 12:33
[2016-11-28] MEDS: REMOVE OLD PATCH TD SCH ×3 (09:00→21:29)
[2016-11-28] MEDS: ANASTROZOLE 1 MG TAB PO SCH (09:04)
[2016-11-28] MEDS: DOCUSATE SODIUM 50 MG/SENNA 8.6 MG TAB PO SCH ×2 (09:04→21:28)
[2016-11-28] MEDS: POLYETHYLENE GLYCOL 17 GM PKG PO SCH (09:04)
[2016-11-28] MEDS: NICOTINE 21 MG/24 HR PATCH TD SCH (09:05)
[2016-11-28] MEDS: SODIUM CHLORIDE 0.9% FLUSH 5 ML FLUSH FLUSH SCH ×2 (09:08→21:27)
[2016-11-28] MEDS ORDERED: LACTULOSE SYRUP 20 GM/30 ML CUP PO ONE (09:30)
--- NOTE | 2016-11-28 09:33 | HHI.FPPN ---
Subjective Remarks Patient states her pain is controlled on the current regimen. She spoke with the oncology this morning and understands we are waiting for her to go for the biopsy. She has not had a bowel movement in 4 days. No chest pain, nausea, shortness of breath. (Minh Duval MD R2) Objective Vitals Vital Signs Date Time Temp Pulse Resp B/P Pulse Ox O2 Delivery O2 Flow Rate FiO2 11/28/16 08:02 96.7 77 16 99/59 98 11/28/16 04:00 97.0 73 20 100/64 98 11/28/16 00:00 97.9 64 18 104/63 98 11/27/16 20:00 97.9 72 16 123/60 98 11/27/16 19:45 67 11/27/16 16:32 96.5 64 16 131/64 98 11/27/16 12:00 97.0 60 16 113/61 99 11/27/16 09:45 98 I/O 11/27/16 11/27/16 11/27/16 11/28/16 11/28/16 11/28/16 06:59 14:59 22:59 06:59 14:59 22:59 Intake Total 792 ml 724 ml 1692 ml 1220 ml Balance 792 ml 724 ml 1692 ml 1220 ml Intake Oral 360 ml 960 ml 250 ml IV Total 432 ml 724 ml 732 ml 970 ml # Voids 2 6 2 # Bowel Movements 0 0 (Minh Duval MD R2) Result Diagram: 11/28/16 0447 11/28/16 0447 Imaging Last Impressions Bone Scan Nuclear Medicine 11/27/16 0000 Signed Impressions: Service Date/Time: Sunday, November 27, 2016 12:08 - CONCLUSION: Diffuse bony metastatic disease. Ted Castillo MD Abdomen/Pelvis CT 11/26/16 0620 Signed Impressions: Service Date/Time: October 07:05 - CONCLUSION: 1. Numerous and extensive blastic lesions of the visualized osseous structures as above compatible with metastatic disease. In a female patient, breast carcinoma would be most likely. There is nondisplaced pathologic fracturing of both sacral ala. There is patchy cortical destruction of the left iliac bone. 2. 3 mm nonobstructing stone of the right kidney. 3. Benign-appearing left adrenal adenoma. Jag Mckeon MD Chest CT 11/26/16 0000 Signed Impressions: Service Date/Time: October 20:19 - CONCLUSION: 1. Scarring versus atelectasis of the right lung base and within the mass a focal nodular area as above. This should be followed. Lungs are otherwise clear. 2. Widespread blastic metastatic disease of the visualized osseous structures as delineated above. Focal cortical thinning right pedicle and lamina of T10 and mild compression deformity of T9 vertebral body 3. Right breast lumpectomy changes. 4. Enlarged mediastinal lymph node in the AP window of concern for metastatic disease. No axillary lymphadenopathy demonstrated. Jag Mckeon MD Objective Remarks O. CONSTITUTIONAL/GEN: normally nourished, in no distress today EYES: conjunctiva normal, PERRLA, EOMI. LUNGS: Clear to auscultation bilaterally, respiratory effort is normal. CARDIOVASCULAR: RRR without murmur or gallop. No significant edema. GI/ABD: soft without masses, without organomegaly. Scar from tummy-tuck. BACK: scar midline from bone bx NEURO: No focal deficits. SKIN: color normal, no rashes noted. HEME/LYMPH: no bruising, petechia or significant adenopathy MUSC: back is normal in appearance. Extremities are normal in appearance. PSYCH/MENTAL STATUS: Alert and oriented x 3. (Minh Duval MD R2) A/P Assessment and Plan Patient is a 56-year-old woman with a history of breast cancer s/p partial mastectomy and radiation therapy who presents with intractable back pain, found to have lytic lesions and pathological fractures on imaging. She presented to the emergency department because her progressively worsening pain has become unbearable. Admitted for pain control and oncology consult. Currently waiting on biopsy. Discharge Planning When pain is controlled and oncology recommendations. (Minh Duval MD R2) Attending Attestation Patient seen and examined. Case reviewed and discussed with the resident team. Agree with plan of care as discussed with me and documented in the resident note. (Diana Duval MD) Problem List: (1) Osteolytic lesion due to metastasis Status: Acute Plan: Consult medical oncology. 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 -IR consulted for biopsy BMP, CBC, CA 15-3, CEA -Continue Arimidex per oncology Pain control: * Tylenol 650 mA by mouth every 6 hours when necessary for pain 1-2 * Dilaudid 0.5 mg IV every 3 hours when necessary for pain 3-5 * Dilaudid 2 mg IV every 3 hours when necessary for pain 6-10 * Morphine SR 60 mg by mouth every 12 hours scheduled around the clock * Morphine IR 30 mg by mouth every 4 hours when necessary for breakthrough pain For constipation: Lindsey-Colace 2 tab by mouth twice a day MiraLAX by mouth scheduled daily -Lactulose (2) Low back pain Status: Acute Plan: See assessment and plan above. (3) Tobacco use Status: Acute Plan: Patient smokes between half pack to a pack a day. Nicotine 21 mg patch 1 patch TD daily (4) Insomnia Status: Acute Plan: Ativan 2mg PO q4h for insomnia or anxiety (5) Nutrition, metabolism, and development symptoms Status: Acute Plan: Fluids: Tolerating by mouth Electrolytes: Monitor and replete as needed Nutrition: Regular diet as tolerated GI prophylaxis: Not currently indicated at this time (6) No contraindication to deep vein thrombosis (DVT) prophylaxis Status: Acute Plan: Given history of cancer and likely metastatic disease on imaging, Lovenox is the preferred anticoagulant. Lovenox 40 mg subcutaneous every 12 hours on hold for anticipated CT-guided biopsy -Patient is ambulating (Minh Duval MD R2) Problem Qualifiers (1) Low back pain: Qualified Code: M54.5 - Midline low back pain without sciatica, unspecified chronicity Minh Duval MD R2 Nov 28, 2016 09:33 Diana Duval MD Nov 28, 2016 11:48
[2016-11-28] MEDS: MORPHINE SULFATE 30 MG TAB PO PRN ×4 (09:41→23:05)
[2016-11-28] MEDS: HYDROmorphone HCL PF 1 MG/ML VIAL IV PRN ×4 (09:46→21:27)
[2016-11-28] MEDS: ENOXAPARIN SODIUM 40 MG/0.4 ML SYRINGE SQ SCH (12:29)
[2016-11-28] MEDS: LORazepam 2 MG TAB PO PRN ×2 (15:59→21:26)
[2016-11-28] MEDS ORDERED: HYDROmorphone HCL PF 4 MG/ML VIAL IV PUSH PRN (17:30)
[2016-11-28] MEDS: CALCIUM CARBONATE 1.25 GM (CA 500 MG) TAB PO SCH (18:43)
[2016-11-29] VITALS (8 sets, daily range): BP systolic 94–121; BP diastolic 53–63; PULSE 57–88; RESP 16–20; TEMP 97–98.9; O2SAT 96–98
[2016-11-29] MEDS: KETOROLAC TROMETHAMINE 30 MG/ML (IVP) VIAL IV PUSH SCH ×4 (04:40→23:18)
[2016-11-29] MEDS: MORPHINE SULFATE 60 MG CONTROLLED RELEASE TAB PO SCH ×3 (04:43→14:22)
[2016-11-29] MEDS: NICOTINE 21 MG/24 HR PATCH TD SCH (07:30)
[2016-11-29] MEDS: CALCIUM CARBONATE 1.25 GM (CA 500 MG) TAB PO SCH (07:31)
[2016-11-29] MEDS: ANASTROZOLE 1 MG TAB PO SCH (07:31)
[2016-11-29] MEDS: DOCUSATE SODIUM 50 MG/SENNA 8.6 MG TAB PO SCH (07:31)
[2016-11-29] MEDS: SODIUM CHLORIDE 0.9% FLUSH 5 ML FLUSH FLUSH SCH ×2 (07:31→21:14)
[2016-11-29] MEDS: POLYETHYLENE GLYCOL 17 GM PKG PO SCH (07:31)
[2016-11-29] MEDS: HYDROmorphone HCL PF 4 MG/ML VIAL IV PUSH SCH ×6 (09:00→23:13)
--- NOTE | 2016-11-29 09:01 | HHI.FPPN ---
Subjective Remarks No pain except for from 5pm to 7pm yesterday, and apparently daily. She continues to experience pain in her lower back, midline to right side. Discussed pain control with nurse. Slept better last night. Planning for biopsy tomorrow. Pt had BM yesterday. (Luis Miguel Rider MD R1) Objective Vitals Vital Signs Date Time Temp Pulse Resp B/P Pulse Ox O2 Delivery O2 Flow Rate FiO2 11/29/16 04:00 97.5 80 16 94/53 97 11/29/16 00:00 97.4 88 20 110/62 97 11/28/16 20:00 97.7 76 22 102/57 99 11/28/16 18:15 97 21 11/28/16 16:20 97.4 72 16 103/60 97 11/28/16 12:10 97.4 76 18 104/58 97 11/28/16 11:30 96 21 I/O 11/28/16 11/28/16 11/28/16 11/29/16 11/29/16 11/29/16 07:00 15:00 23:00 07:00 15:00 23:00 Intake Total 1220 ml 1080 ml 1920 ml 240 ml Balance 1220 ml 1080 ml 1920 ml 240 ml Intake Oral 250 ml 1080 ml 1920 ml 240 ml IV Total 970 ml # Voids 2 5 3 2 # Bowel Movements 0 0 (Luis Miguel Rider MD R1) Result Diagram: 11/28/16 0447 11/28/16 0447 Imaging Last Impressions Bone Scan Nuclear Medicine 11/27/16 0000 Signed Impressions: Service Date/Time: Sunday, November 27, 2016 12:08 - CONCLUSION: Diffuse bony metastatic disease. Ted Castillo MD Abdomen/Pelvis CT 11/26/16 0620 Signed Impressions: Service Date/Time: October 07:05 - CONCLUSION: 1. Numerous and extensive blastic lesions of the visualized osseous structures as above compatible with metastatic disease. In a female patient, breast carcinoma would be most likely. There is nondisplaced pathologic fracturing of both sacral ala. There is patchy cortical destruction of the left iliac bone. 2. 3 mm nonobstructing stone of the right kidney. 3. Benign-appearing left adrenal adenoma. Jag Mckeon MD Chest CT 11/26/16 0000 Signed Impressions: Service Date/Time: October 20:19 - CONCLUSION: 1. Scarring versus atelectasis of the right lung base and within the mass a focal nodular area as above. This should be followed. Lungs are otherwise clear. 2. Widespread blastic metastatic disease of the visualized osseous structures as delineated above. Focal cortical thinning right pedicle and lamina of T10 and mild compression deformity of T9 vertebral body 3. Right breast lumpectomy changes. 4. Enlarged mediastinal lymph node in the AP window of concern for metastatic disease. No axillary lymphadenopathy demonstrated. Jag Mckeon MD Objective Remarks O. CONSTITUTIONAL/GEN: normally nourished, in no distress today EYES: conjunctiva normal, PERRLA, EOMI. LUNGS: Clear to auscultation bilaterally, respiratory effort is normal. CARDIOVASCULAR: RRR without murmur or gallop. No significant edema. GI/ABD: soft without masses, without organomegaly. Scar from tummy-tuck. BACK: scar midline from bone bx NEURO: No focal deficits. SKIN: color normal, no rashes noted. HEME/LYMPH: no bruising, petechia or significant adenopathy MUSC: back is normal in appearance. Extremities are normal in appearance. PSYCH/MENTAL STATUS: Alert and oriented x 3. (Luis Miguel Rider MD R1) A/P Assessment and Plan Patient is a 56-year-old woman with a history of breast cancer s/p partial mastectomy and radiation therapy who presents with intractable back pain, found to have lytic lesions and pathological fractures on imaging. She presented to the emergency department because her progressively worsening pain has become unbearable. Admitted for pain control and oncology consult. Currently waiting on biopsy. Discharge Planning When pain is controlled and oncology recommendations. (Luis Miguel Rider MD R1) Attending Attestation Patient seen and examined. Case reviewed and discussed with the resident team. Agree with plan of care as discussed with me and documented in the resident note. (Diana Duval MD) Problem List: (1) Osteolytic lesion due to metastasis Status: Acute Plan: Consult medical oncology. Recommendations appreciated below: * Restaging imaging with CT scan of his thorax and whole-body bone scan have been performed. CT guided biopsy of admissions representative lesion, likely tomorrow, which would help guide possible palliative radiation, investigate into if she qualifies for patient assistance program. -IR consulted for biopsy; will give Lovenox after biopsy BMP, CBC, CA 15-3, CEA -Continue Arimidex per oncology Pain control: * Tylenol 650 mA by mouth every 6 hours when necessary for pain 1-2 * Dilaudid 0.5 mg IV every 3 hours when necessary for pain 3-5 * Dilaudid 3 mg IV every 3 hours scheduled around the clock * Morphine SR 60 mg by mouth every 12 hours scheduled around the clock * Morphine IR 30 mg by mouth every 4 hours when necessary for breakthrough pain For constipation: Lindsey-Colace 2 tab by mouth daily at bedtime MiraLAX by mouth scheduled daily -Lactulose (2) Low back pain Status: Acute Plan: See assessment and plan above. (3) Tobacco use Status: Acute Plan: Patient smokes between half pack to a pack a day. Nicotine 21 mg patch 1 patch TD daily (4) Insomnia Status: Acute Plan: Patient reported sleeping better last night. Ativan 2mg PO q4h for insomnia or anxiety (5) Nutrition, metabolism, and development symptoms Status: Acute Plan: Fluids: Tolerating by mouth Electrolytes: Monitor and replete as needed Nutrition: Regular diet as tolerated GI prophylaxis: Not currently indicated at this time (6) No contraindication to deep vein thrombosis (DVT) prophylaxis Status: Acute Plan: Given history of cancer and likely metastatic disease on imaging, Lovenox is the preferred anticoagulant. Lovenox 40 mg subcutaneous every 12 hours on hold for anticipated CT-guided biopsy -Patient is ambulating (Lui sMiguel Rider MD R1) Problem Qualifiers (1) Low back pain: Qualified Code: M54.5 - Midline low back pain without sciatica, unspecified chronicity Luis Miguel Rider MD R1 Nov 29, 2016 09:01 Diana Duval MD Nov 29, 2016 13:05
[2016-11-29 09:08] LABS: BASOPHIL # 0.1 TH/MM3 (0-0.2); BASOPHIL % 0.9 % (0.0-2.0); EOSINOPHIL # 0.2 TH/MM3 (0-0.4); EOSINOPHIL % 2.9 % (0.0-4.0); HEMATOCRIT 36.1 % (35.0-46.0); HEMO FLAGS DIFF FINAL; LYMPHOCYTE # 1.5 TH/MM3 (1.0-4.8); MEAN CELL VOLUME 83.3 FL (80.0-100.0); MEAN CORPUSCULAR HGB CONC 32.5 % (32.0-36.0); MONO % 7.7 % (0.0-8.0); NEUT % 67.5 % (16.0-70.0); PLATELET COUNT 181 TH/MM3 (150-450); RED BLOOD COUNT 4.34 MIL/MM3 (4.00-5.30); RED CELL DISTRIBUTION WIDTH 15.6 % (11.6-17.2); WHITE BLOOD COUNT 7.4 TH/MM3 (4.0-11.0)
[2016-11-29 09:34] LABS: ALKALINE PHOSPHATASE 55 U/L (45-117); ALT (GPT) 23 U/L (10-53); ANION GAP 11 MEQ/L (5-15); AST (GOT) 15 U/L (15-37); BICARBONATE 22.2 MEQ/L (21.0-32.0); CHLORIDE 106 MEQ/L (98-107); GLOMERULAR FILTRATION RATE 108 ML/MIN (>89); POTASSIUM 4.6 MEQ/L (3.5-5.1); SODIUM (NA) 139 MEQ/L (136-145); TOTAL BILIRUBIN ADULT 0.2 MG/DL (0.2-1.0)
[2016-11-29 09:39] LABS: BLOOD UREA NITROGEN 14 MG/DL (7-18)
[2016-11-29] MEDS ORDERED: PAMIDRONATE INJ 90 MG in SODIUM CHLOR 0.9% 1000 ML INJ 1,000 ML IV ONE (11:00)
[2016-11-29] MEDS: ENOXAPARIN SODIUM 40 MG/0.4 ML SYRINGE SQ SCH (11:22)
--- NOTE | 2016-11-29 11:41 | PD.ONC.PN ---
Subjective Subjective Remarks Afebrile overnight. Pt states her pain remains controlled. She is looking forward to getting her bone bx and continuing with treatment. She denies SOB or chest pain. Objective Data Date Time Temp Pulse Resp B/P Pulse Ox O2 Delivery O2 Flow Rate FiO2 11/29/16 11:27 97.6 68 18 106/59 97 11/29/16 09:49 97 21 11/29/16 08:00 98.9 57 18 106/59 96 11/29/16 04:00 97.5 80 16 94/53 97 11/29/16 00:00 97.4 88 20 110/62 97 11/28/16 20:00 97.7 76 22 102/57 99 11/28/16 18:15 97 21 11/28/16 16:20 97.4 72 16 103/60 97 11/28/16 12:10 97.4 76 18 104/58 97 11/29/16 11/29/16 11/29/16 07:00 15:00 23:00 Intake Total 240 ml Balance 240 ml Result Diagram: 11/29/16 0715 11/29/16 0800 Laboratory Results Laboratory Tests Test 11/29/16 11/29/16 07:15 08:00 White Blood Count 7.4 TH/MM3 Red Blood Count 4.34 MIL/MM3 Hemoglobin 11.7 GM/DL Hematocrit 36.1 % Mean Corpuscular Volume 83.3 FL Mean Corpuscular Hemoglobin 27.0 PG Mean Corpuscular Hemoglobin 32.5 % Concent Red Cell Distribution Width 15.6 % Platelet Count 181 TH/MM3 Mean Platelet Volume 9.4 FL Neutrophils (%) (Auto) 67.5 % Lymphocytes (%) (Auto) 21.0 % Monocytes (%) (Auto) 7.7 % Eosinophils (%) (Auto) 2.9 % Basophils (%) (Auto) 0.9 % Neutrophils # (Auto) 5.0 TH/MM3 Lymphocytes # (Auto) 1.5 TH/MM3 Monocytes # (Auto) 0.6 TH/MM3 Eosinophils # (Auto) 0.2 TH/MM3 Basophils # (Auto) 0.1 TH/MM3 CBC Comment DIFF FINAL Differential Comment Sodium Level 139 MEQ/L Potassium Level 4.6 MEQ/L Chloride Level 106 MEQ/L Carbon Dioxide Level 22.2 MEQ/L Anion Gap 11 MEQ/L Blood Urea Nitrogen 14 MG/DL Creatinine 0.58 MG/DL Estimat Glomerular Filtration 108 ML/MIN Rate Random Glucose 88 MG/DL Calcium Level 8.6 MG/DL Total Bilirubin 0.2 MG/DL Aspartate Amino Transf 15 U/L (AST/SGOT) Alanine Aminotransferase 23 U/L (ALT/SGPT) Alkaline Phosphatase 55 U/L Total Protein 5.9 GM/DL Albumin 3.2 GM/DL Administered Medications Medications (Trade) Dose Ordered Sig/Dave Route PRN Reason Start Time Stop Time Status Last Admin Dose Admin Ketorolac Tromethamine (Toradol Inj) 30 mg Q6HR IV PUSH 11/26/16 18:00 12/01/16 17:59 11/29/16 11:21 IV Flush (NS Flush) 2 ml UNSCH PRN FLUSH FLUSH AFTER USING IV ACCESS 11/26/16 12:00 11/28/16 17:26 IV Flush (NS Flush) 2 ml BID FLUSH 11/26/16 21:00 11/29/16 07:31 Enoxaparin Sodium (Lovenox Inj) 40 mg Q24H SQ 11/26/16 13:00 11/29/16 11:22 Nicotine (Habitrol 21 Mg Patch.24 Hr) 1 patch DAILY TD 11/26/16 14:45 11/29/16 07:30 Miscellaneous Information 1 DAILY TD 11/27/16 09:00 11/28/16 21:29 Morphine Sulfate (Oramorph Sr) 60 mg Q12H PO 11/27/16 04:00 11/29/16 04:45 Morphine Sulfate (Msir) 30 mg Q4H PRN PO BREAKTHROUGH PAIN 11/26/16 17:00 11/28/16 23:05 Polyethylene Glycol (Miralax) 17 gm DAILY PO 11/27/16 14:45 11/29/16 07:31 Lorazepam (Ativan) 2 mg Q4H PRN PO anxiety 11/27/16 17:00 11/28/16 21:26 Anastrozole (Arimidex) 1 mg DAILY PO 11/28/16 09:00 11/29/16 07:31 Senna/Docusate Sodium (Lindsey-Colace) 2 tab BID PO 11/28/16 21:00 11/29/16 07:31 Hydromorphone HCl (Dilaudid Pf Inj) 1 mg Q3H PRN IV Pain 3-5; if unable to take PO 11/28/16 18:00 11/28/16 21:27 Calcium Carbonate (Oscal) 500 mg DAILY PO 11/28/16 17:45 11/29/16 07:31 Hydromorphone HCl 3 mg 3 mg Q3H IV PUSH 11/29/16 09:00 11/29/16 11:22 Pamidronate Disodium/Sodium Chloride (Aredia Inj/NS 1000 ml Inj) 1,000 ml @ 42 mls/hr ONCE ONCE IV 11/29/16 11:00 11/30/16 10:48 11/29/16 10:42 Objective Remarks GENERAL: Middle aged female, appears close to chronological age. SKIN: Warm and dry. HEAD: Normocephalic. EYES: No injection or drainage. NECK: Supple, trachea midline. CARDIOVASCULAR: +S1/S2. RESPIRATORY: Lungs clear throughout. On RA. Breathing easy and unlabored. GASTROINTESTINAL: +BS. Non tender, non distended. EXTREMITIES: No cyanosis, or edema. NEUROLOGICAL: No obvious focal deficit. Awake, alert, and oriented x3. Assessment/Plan Problem List: (1) Metastatic breast cancer Status: Acute Plan: -- CA 15-3 elevated at 157.1. -- Complete staging -- Pt started on Arimidex -- She previously was on Femara but she reports being out of this for a few months. Hx: The patient was originally treated in [place] with a partial mastectomy and radiation. She has no records from her treatment and we have no pathology reports. She was previously on Femara but has been out of this medication for a few months. She also reports previously being on Zometa. Since being in the [facility] she has been attempting to get insurance and disability to see a physician. Her pain was intense and she came into the ER on 11/[address] scan of the abdomen and pelvis showed numerous and extensive blastic lesions. (2) Osteolytic lesion due to metastasis Status: Acute Plan: -- We will consult IR to attempt to get a biopsy of one of the lesions. -- Pt's pain controlled with current pain regimen of short and long acting medications. Assessment 56 y/o female who presents to the hospital with severe pain. Numerous and extensive blastic lesions consistent with metastases were found on CT abdomen and pelvis. Plan 1. Biopsy of a blastic lesion will likely happen on Wednesday. 2. Continue Arimidex 3. Pamidronate x 1 dose for metastatic breast cancer to bone. 4. Will hold lovenox until after bone biopsy complete. 5. Supportive care. Attending Statement The exam, history, and the medical decision-making described in the above note were completed with the assistance of the mid-level provider. I reviewed and agree with the findings presented. I attest that I had a [id number] encounter with the patient on the same day, and personally performed and documented my assessment and findings in the medical record. No new c/o. Explained need for pamidronate to her and she previously had Zometa and tolerated well. Await biopsy of bone lesion tomorrow. Clementina Krishnamurthy Nov 29, 2016 11:41 Mahad Terry MD Nov 29, 2016 11:44
[2016-11-29] MEDS: MORPHINE SULFATE 30 MG TAB PO PRN ×2 (15:09→23:18)
[2016-11-29] MEDS ORDERED: HYDROmorphone HCL PF 1 MG/ML VIAL IV PUSH ONE (18:30)
[2016-11-29] MEDS ORDERED: DOCUSATE SODIUM 50 MG/SENNA 8.6 MG TAB PO SCH (21:00)
[2016-11-29] MEDS: LORazepam 2 MG TAB PO PRN (21:14)
[2016-11-29] MEDS: REMOVE OLD PATCH TD SCH (21:18)
[2016-11-30] VITALS: BP 111/72; PULSE 81; RESP 16; TEMP 97.4; O2SAT 97
[2016-11-30] MEDS: MORPHINE SULFATE 60 MG CONTROLLED RELEASE TAB PO SCH ×2 (03:41→15:41)
[2016-11-30] MEDS: HYDROmorphone HCL PF 4 MG/ML VIAL IV PUSH SCH ×8 (03:42→23:57)
[2016-11-30 04:00] VITALS: BP 111/71; PULSE 72; RESP 16; TEMP 98; O2SAT 97
[2016-11-30] MEDS: KETOROLAC TROMETHAMINE 30 MG/ML (IVP) VIAL IV PUSH SCH ×3 (06:22→17:41)
[2016-11-30 07:37] LABS: AUTOMATED NEUTROPHIL # 4.7 TH/MM3 (1.8-7.7); BASOPHIL % 0.5 % (0.0-2.0); EOSINOPHIL # 0.2 TH/MM3 (0-0.4); EOSINOPHIL % 2.9 % (0.0-4.0); HEMATOCRIT 34.2 % (35.0-46.0); HEMO FLAGS DIFF FINAL; LYMPH % 19.2 % (9.0-44.0); LYMPHOCYTE # 1.3 TH/MM3 (1.0-4.8); MEAN CELL VOLUME 82.2 FL (80.0-100.0); MEAN CORPUSCULAR HEMOGLOBIN 27.2 PG (27.0-34.0); MEAN CORPUSCULAR HGB CONC 33.1 % (32.0-36.0); MONO % 7.7 % (0.0-8.0); NEUT % 69.7 % (16.0-70.0); PLATELET COUNT 176 TH/MM3 (150-450); RED BLOOD COUNT 4.16 MIL/MM3 (4.00-5.30); RED CELL DISTRIBUTION WIDTH 15.4 % (11.6-17.2); WHITE BLOOD COUNT 6.7 TH/MM3 (4.0-11.0)
[2016-11-30 08:00] VITALS: BP 107/57; PULSE 59; RESP 18; TEMP 96.6; O2SAT 96
[2016-11-30 08:10] LABS: ALT (GPT) 27 U/L (10-53); ANION GAP 8 MEQ/L (5-15); AST (GOT) 21 U/L (15-37); BICARBONATE 27.4 MEQ/L (21.0-32.0); BLOOD UREA NITROGEN 15 MG/DL (7-18); CHLORIDE 107 MEQ/L (98-107); GLOMERULAR FILTRATION RATE 104 ML/MIN (>89); POTASSIUM 4.6 MEQ/L (3.5-5.1); SODIUM (NA) 142 MEQ/L (136-145)
[2016-11-30 08:11] LABS: ALKALINE PHOSPHATASE 53 U/L (45-117); TOTAL BILIRUBIN ADULT 0.3 MG/DL (0.2-1.0)
--- NOTE | 2016-11-30 08:30 | HHI.FPPN ---
Subjective Remarks No acute events overnight. Except for some mild asymptomatic hypotension into the 90s, afebrile and vital signs stable. Patient continues to complain of back pain every day starting at 5 PM, which lasts until 7 PM. She also denies any bowel movement in the last 2 days. She thinks it's because she is not in her normal routine of coffee and cigarettes in the morning. She denies any other complaints including nausea, vomiting, chest pain, shortness of breath. Discussed plan of care, including bone biopsy likely today. (Luis Miguel Rider MD R1) Objective Vitals Vital Signs Date Time Temp Pulse Resp B/P Pulse Ox O2 Delivery O2 Flow Rate FiO2 11/30/16 04:00 98.0 72 16 111/71 97 11/30/16 00:00 97.4 81 16 111/72 97 11/29/16 20:20 97.0 66 16 121/59 98 11/29/16 16:00 97.1 65 18 105/63 97 11/29/16 12:05 97.6 71 18 106/59 98 11/29/16 11:27 97.6 68 18 106/59 97 11/29/16 09:49 97 21 I/O 11/29/16 11/29/16 11/29/16 11/30/16 11/30/16 11/30/16 07:00 15:00 23:00 07:00 15:00 23:00 Intake Total 240 ml 1260 ml 1173 ml 852 ml Balance 240 ml 1260 ml 1173 ml 852 ml Intake Oral 240 ml 1260 ml 720 ml 480 ml IV Total 453 ml 372 ml # Voids 2 3 3 3 # Bowel Movements 0 0 0 0 (Luis Miguel Rider MD R1) Result Diagram: 11/30/16 0620 11/30/16 0620 Objective Remarks O. CONSTITUTIONAL/GEN: normally nourished, in no distress today EYES: conjunctiva normal, PERRLA, EOMI. LUNGS: Clear to auscultation bilaterally, respiratory effort is normal. CARDIOVASCULAR: RRR without murmur or gallop. No significant edema. GI/ABD: soft without masses, without organomegaly. Scar from tummy-tuck. BACK: scar midline from bone bx NEURO: No focal deficits. SKIN: color normal, no rashes noted. HEME/LYMPH: no bruising, petechia or significant adenopathy MUSC: back is normal in appearance. Extremities are normal in appearance. PSYCH/MENTAL STATUS: Alert and oriented x 3. (Luis Miguel Rider MD R1) A/P Assessment and Plan Patient is a 56-year-old woman with a history of breast cancer s/p partial mastectomy and radiation therapy who presents with intractable back pain, found to have lytic lesions and pathological fractures on imaging. She presented to the emergency department because her progressively worsening pain has become unbearable. Admitted for pain control and oncology consult. Currently waiting on biopsy. Discharge Planning When pain is controlled and per oncology recommendations. (Luis Miguel Rider MD R1) Attending Attestation Patient seen and examined. Case reviewed and discussed with the resident team. Agree with plan of care as discussed with me and documented in the resident note. (Diana Duval MD) Problem List: (1) Osteolytic lesion due to metastasis Status: Acute Plan: Consult medical oncology. Recommendations appreciated below: * Restaging imaging with CT scan of his thorax and whole-body bone scan have been performed. 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 -IR consulted for biopsy; will give Lovenox after biopsy BMP, CBC, CA 15-3, CEA -Continue Arimidex per oncology Pain control: * Tylenol 650 mA by mouth every 6 hours when necessary for pain 1-2 * Dilaudid 0.5 mg IV every 3 hours when necessary for pain 3-5 * Dilaudid 2 mg IV push every 3 hours when necessary for pain 6-10 * Dilaudid 3 mg IV every 3 hours scheduled around the clock * Morphine SR 60 mg by mouth every 12 hours scheduled around the clock * Morphine IR 30 mg by mouth every 4 hours when necessary for breakthrough pain For constipation: Lindsey-Colace 2 tab by mouth twice a day MiraLAX by mouth scheduled daily -Lactulose (2) Low back pain Status: Acute Plan: See assessment and plan above. (3) Tobacco use Status: Acute Plan: Patient smokes between half pack to a pack a day. Nicotine 21 mg patch 1 patch TD daily (4) Insomnia Status: Acute Plan: Patient reported sleeping better last night. Ativan 2mg PO q4h for insomnia or anxiety (5) Nutrition, metabolism, and development symptoms Status: Acute Plan: Fluids: Tolerating by mouth Electrolytes: Monitor and replete as needed Nutrition: Regular diet as tolerated GI prophylaxis: Not currently indicated at this time (6) No contraindication to deep vein thrombosis (DVT) prophylaxis Status: Acute Plan: Given history of cancer and likely metastatic disease on imaging, Lovenox is the preferred anticoagulant. Lovenox 40 mg subcutaneous every 12 hours on hold for anticipated CT-guided biopsy -Patient is ambulating (Luis Miguel Rider MD R1) Problem Qualifiers (1) Low back pain: Qualified Code: M54.5 - Midline low back pain without sciatica, unspecified chronicity Luis Miguel Rider MD R1 Nov 30, 2016 08:30 Diana Duval MD Dec 01, 2016 14:13
[2016-11-30] MEDS: ANASTROZOLE 1 MG TAB PO SCH (08:48)
[2016-11-30] MEDS: POLYETHYLENE GLYCOL 17 GM PKG PO SCH (08:48)
[2016-11-30] MEDS: CALCIUM CARBONATE 1.25 GM (CA 500 MG) TAB PO SCH ×2 (08:48→20:50)
[2016-11-30] MEDS: LACTULOSE SYRUP 20 GM/30 ML CUP PO SCH (08:48)
[2016-11-30] MEDS: NICOTINE 21 MG/24 HR PATCH TD SCH (08:49)
[2016-11-30] MEDS: DOCUSATE SODIUM 50 MG/SENNA 8.6 MG TAB PO SCH ×2 (08:49→20:50)
[2016-11-30] MEDS: SODIUM CHLORIDE 0.9% FLUSH 5 ML FLUSH FLUSH SCH ×2 (08:50→20:50)
--- NOTE | 2016-11-30 09:32 | PD.ONC.PN ---
Subjective Subjective Remarks Ms. Jarrell reports feeling better today, her pain is reasonably well- controlled with the long and short acting morphine. She tells me she has a period of breakthrough at about 5 AM every morning. She also tells me she is craving a cigarette very badly and that she gets constipated if she does not smoke. She had questions regarding outpatient follow-up, palliative endocrine therapy, the timing of biopsy of the pelvis which is been ordered. Objective Data Date Time Temp Pulse Resp B/P Pulse Ox O2 Delivery O2 Flow Rate FiO2 11/30/16 08:00 96.6 59 18 107/57 96 11/30/16 04:00 98.0 72 16 111/71 97 11/30/16 00:00 97.4 81 16 111/72 97 11/29/16 20:20 97.0 66 16 121/59 98 11/29/16 16:00 97.1 65 18 105/63 97 11/29/16 12:05 97.6 71 18 106/59 98 11/29/16 11:27 97.6 68 18 106/59 97 11/29/16 09:49 97 21 11/30/16 11/30/16 11/30/16 06:59 14:59 22:59 Intake Total 852 ml Balance 852 ml Result Diagram: 11/30/16 0620 11/30/16 0620 Laboratory Results Laboratory Tests Test 11/30/16 06:20 White Blood Count 6.7 TH/MM3 Red Blood Count 4.16 MIL/MM3 Hemoglobin 11.3 GM/DL Hematocrit 34.2 % Mean Corpuscular Volume 82.2 FL Mean Corpuscular Hemoglobin 27.2 PG Mean Corpuscular Hemoglobin 33.1 % Concent Red Cell Distribution Width 15.4 % Platelet Count 176 TH/MM3 Mean Platelet Volume 9.6 FL Neutrophils (%) (Auto) 69.7 % Lymphocytes (%) (Auto) 19.2 % Monocytes (%) (Auto) 7.7 % Eosinophils (%) (Auto) 2.9 % Basophils (%) (Auto) 0.5 % Neutrophils # (Auto) 4.7 TH/MM3 Lymphocytes # (Auto) 1.3 TH/MM3 Monocytes # (Auto) 0.5 TH/MM3 Eosinophils # (Auto) 0.2 TH/MM3 Basophils # (Auto) 0.0 TH/MM3 CBC Comment DIFF FINAL Differential Comment Sodium Level 142 MEQ/L Potassium Level 4.6 MEQ/L Chloride Level 107 MEQ/L Carbon Dioxide Level 27.4 MEQ/L Anion Gap 8 MEQ/L Blood Urea Nitrogen 15 MG/DL Creatinine 0.60 MG/DL Estimat Glomerular Filtration 104 ML/MIN Rate Random Glucose 78 MG/DL Calcium Level 8.8 MG/DL Total Bilirubin 0.3 MG/DL Aspartate Amino Transf 21 U/L (AST/SGOT) Alanine Aminotransferase 27 U/L (ALT/SGPT) Alkaline Phosphatase 53 U/L Total Protein 6.1 GM/DL Albumin 3.0 GM/DL Administered Medications Medications (Trade) Dose Ordered Sig/Dave Route PRN Reason Start Time Stop Time Status Last Admin Dose Admin Ketorolac Tromethamine (Toradol Inj) 30 mg Q6HR IV PUSH 11/26/16 18:00 12/01/16 17:59 11/30/16 06:22 IV Flush (NS Flush) 2 ml UNSCH PRN FLUSH FLUSH AFTER USING IV ACCESS 11/26/16 12:00 11/28/16 17:26 IV Flush (NS Flush) 2 ml BID FLUSH 11/26/16 21:00 11/30/16 08:50 Enoxaparin Sodium (Lovenox Inj) 40 mg Q24H SQ 11/26/16 13:00 Hold 11/29/16 11:22 Nicotine (Habitrol 21 Mg Patch.24 Hr) 1 patch DAILY TD 11/26/16 14:45 11/30/16 08:49 Miscellaneous Information 1 DAILY TD 11/27/16 09:00 11/29/16 21:18 Morphine Sulfate (Oramorph Sr) 60 mg Q12H PO 11/27/16 04:00 11/30/16 03:41 Morphine Sulfate (Msir) 30 mg Q4H PRN PO BREAKTHROUGH PAIN 11/26/16 17:00 11/29/16 23:18 Polyethylene Glycol (Miralax) 17 gm DAILY PO 11/27/16 14:45 11/30/16 08:48 Lorazepam (Ativan) 2 mg Q4H PRN PO anxiety 11/27/16 17:00 11/29/16 21:14 Hydromorphone HCl (Dilaudid Pf Inj) 1 mg Q3H PRN IV Pain 3-5; if unable to take PO 11/28/16 18:00 11/28/16 21:27 Hydromorphone HCl 3 mg 3 mg Q3H IV PUSH 11/29/16 09:00 11/30/16 08:50 Pamidronate Disodium/Sodium Chloride (Aredia Inj/NS 1000 ml Inj) 1,000 ml @ 42 mls/hr ONCE ONCE IV 11/29/16 11:00 11/30/16 10:48 11/29/16 10:42 Senna/Docusate Sodium (Lindsey-Colace) 2 tab BID PO 11/30/16 09:00 11/30/16 08:49 Lactulose (Lactulose Liq) 30 ml DAILY PO 11/30/16 09:00 11/30/16 08:48 Objective Remarks GENERAL APPEARANCE: Ms. Jarrell is a middle-aged female. She is laying in bed. Appears to be much more comfortable this morning. HEENT: Head atraumatic, normocephalic, conjunctivae are non-pale, sclerae anicteric, EOMI, PERRLA, oral exam no pharyngeal erythema. NECK: No palpable cervical or supraclavicular adenopathy. RESPIRATORY: Good air movement bilaterally. No added breath sounds. CARDIOVASCULAR: Regular rate and rhythm, S1-S2. No obvious murmurs, rubs or gallops. ABDOMEN: Thin belly, soft, nontender, nondistended. She has a horizontal tummy tuck incision noted. No masses noted, no palpable hepatosplenomegaly. LOWER EXTREMITIES: No pretibial edema. No calf tenderness. 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 She does have some weakness of the left hand. Assessment/Plan Problem List: (1) Metastatic breast cancer Status: Acute Plan: -- CA 15-3 elevated at 157.1. -- Complete staging -- Pt started on Arimidex -- She previously was on Femara but she reports being out of this for a few months. Hx: The patient was originally treated in [place] with a partial mastectomy and radiation. She has no records from her treatment and we have no pathology reports. She was previously on Femara but has been out of this medication for a few months. She also reports previously being on Zometa. Since being in the [facility] she has been attempting to get insurance and disability to see a physician. Her pain was intense and she came into the ER on 12/[address] scan of the abdomen and pelvis showed numerous and extensive blastic lesions. (2) Osteolytic lesion due to metastasis Status: Acute Plan: -- We will consult IR to attempt to get a biopsy of one of the lesions. -- Pt's pain controlled with current pain regimen of short and long acting medications. Assessment 56 y/o female who presents to the hospital with severe pain. Numerous and extensive blastic lesions consistent with metastases were found on CT abdomen and pelvis. Plan 1. Biopsy of a blastic lesion will likely happen on Wednesday or Wednesday. 2. For management for breast cancer she has been initiated on palliative endocrine therapy with anastrozole. I will add on calcium plus vitamin D. 3. Pamidronate x 1 dose for metastatic breast cancer to bone. 4. Will hold lovenox until after bone biopsy complete. 5. Pain control: With long and short acting morphine but seems to be working well. Wang Candelaria MD Nov 30, 2016 09:32
[2016-11-30 12:00] VITALS: BP 96/59; PULSE 65; RESP 18; TEMP 96.8; O2SAT 97
[2016-11-30] MEDS ORDERED: HYDROmorphone HCL PF 2 MG/ML VIAL IV PUSH PRN ×2 (13:00)
[2016-11-30 16:00] VITALS: BP 114/62; PULSE 71; RESP 18; TEMP 96.7; O2SAT 96
[2016-11-30 20:00] VITALS: BP 118/59; PULSE 81; RESP 16; TEMP 96.9; O2SAT 96
[2016-11-30] MEDS: MORPHINE SULFATE 30 MG TAB PO PRN (20:03)
[2016-11-30] MEDS: LORazepam 2 MG TAB PO PRN (20:52)
[2016-12-01] VITALS (10 sets, daily range): BP systolic 94–131; BP diastolic 51–86; PULSE 56–70; RESP 16–18; TEMP 97.6–98.8; O2SAT 93–96
[2016-12-01] MEDS: HYDROmorphone HCL PF 4 MG/ML VIAL IV PUSH SCH ×8 (03:00→23:24)
[2016-12-01] MEDS: MORPHINE SULFATE 60 MG CONTROLLED RELEASE TAB PO SCH ×2 (04:46→15:10)
[2016-12-01] MEDS: KETOROLAC TROMETHAMINE 30 MG/ML (IVP) VIAL IV PUSH SCH ×3 (06:00→13:47)
[2016-12-01 06:24] LABS: AUTOMATED NEUTROPHIL # 4.3 TH/MM3 (1.8-7.7); BASOPHIL % 0.5 % (0.0-2.0); EOSINOPHIL # 0.2 TH/MM3 (0-0.4); EOSINOPHIL % 3.1 % (0.0-4.0); HEMATOCRIT 34.2 % (35.0-46.0); HEMO FLAGS DIFF FINAL; LYMPH % 21.1 % (9.0-44.0); LYMPHOCYTE # 1.4 TH/MM3 (1.0-4.8); MEAN CELL VOLUME 81.9 FL (80.0-100.0); MEAN CORPUSCULAR HEMOGLOBIN 27.6 PG (27.0-34.0); MEAN CORPUSCULAR HGB CONC 33.7 % (32.0-36.0); MONO % 7.8 % (0.0-8.0); NEUT % 67.5 % (16.0-70.0); PLATELET COUNT 173 TH/MM3 (150-450); RED BLOOD COUNT 4.17 MIL/MM3 (4.00-5.30); RED CELL DISTRIBUTION WIDTH 15.7 % (11.6-17.2); WHITE BLOOD COUNT 6.4 TH/MM3 (4.0-11.0)
[2016-12-01 06:35] LABS: BICARBONATE 30.7 MEQ/L (21.0-32.0); POTASSIUM 4.2 MEQ/L (3.5-5.1)
[2016-12-01] MEDS: CALCIUM CARBONATE 1.25 GM (CA 500 MG) TAB PO SCH ×2 (08:30→20:25)
[2016-12-01] MEDS: DOCUSATE SODIUM 50 MG/SENNA 8.6 MG TAB PO SCH ×2 (08:31→20:25)
[2016-12-01] MEDS: LACTULOSE SYRUP 20 GM/30 ML CUP PO SCH (08:31)
[2016-12-01] MEDS: CHOLECALCIFEROL (VIT D3) 1000 UNIT TAB PO SCH (08:31)
[2016-12-01] MEDS: POLYETHYLENE GLYCOL 17 GM PKG PO SCH (08:31)
[2016-12-01] MEDS: REMOVE OLD PATCH TD SCH (09:00)
[2016-12-01] MEDS: SODIUM CHLORIDE 0.9% FLUSH 5 ML FLUSH FLUSH SCH ×2 (09:07→20:25)
[2016-12-01] MEDS: NICOTINE 21 MG/24 HR PATCH TD SCH (09:07)
[2016-12-01 09:08] LABS: PROTHROMBIN TIME - PATIENT 10.7 SEC (9.8-11.6)
[2016-12-01] MEDS ORDERED: MIDAZOLAM HCL 5 MG/5 ML VIAL ONE (10:00)
[2016-12-01] MEDS ORDERED: fentaNYL CITRATE 250 MCG/5 ML AMP ONE (10:00)
[2016-12-01] MEDS ORDERED: LIDOCAINE 1%/EPINEPHrine 1:100,000 SOLN 20 ML VIAL ONE (10:13)
[2016-12-01] MEDS ORDERED: oxyCODONE/ACETAMINOPHEN 5 MG/325 MG TAB PO PRN (12:00)
--- NOTE | 2016-12-01 12:52 | HHI.FPPN ---
Subjective Remarks No acute events overnight. Afebrile and vital signs stable. Interviewed patient after her biopsy this morning. She reports that she still had pain between 5 and 7 PM yesterday. She denies experiencing any pain when we interviewed her. She reports moving her bowels regularly. (Luis Miguel Rider MD R1) Objective Vitals Vital Signs Date Time Temp Pulse Resp B/P Pulse Ox O2 Delivery O2 Flow Rate FiO2 12/01/16 12:20 62 18 106/53 94 12/01/16 11:50 63 18 100/63 93 12/01/16 11:35 98.0 70 18 97/57 93 12/01/16 08:00 98.8 67 17 102/69 95 12/01/16 04:00 98.6 59 16 106/56 94 12/01/16 00:00 98.1 62 16 94/51 95 11/30/16 20:00 96.9 81 16 118/59 96 11/30/16 16:00 96.7 71 18 114/62 96 I/O 11/30/16 11/30/16 11/30/16 12/01/16 12/01/16 12/01/16 07:00 15:00 23:00 07:00 15:00 23:00 Intake Total 852 ml 720 ml 360 ml 0 ml Balance 852 ml 720 ml 360 ml 0 ml Intake Oral 480 ml 720 ml 360 ml 0 ml IV Total 372 ml # Voids 3 4 2 2 # Bowel Movements 0 1 0 0 (Luis Miguel Rider MD R1) Result Diagram: 12/01/16 0553 12/01/16 0553 Imaging Last Impressions Bone Biopsy CT 12/01/16 0851 Signed Impressions: Service Date/Time: Thursday, December 01, 2016 10:50 - CONCLUSION: Uncomplicated CT guided biopsy. Ted Castillo MD Bone Scan Nuclear Medicine 11/27/16 0000 Signed Impressions: Service Date/Time: Sunday, November 27, 2016 12:08 - CONCLUSION: Diffuse bony metastatic disease. Ted Castillo MD Abdomen/Pelvis CT 11/26/16 0620 Signed Impressions: Service Date/Time: October 07:05 - CONCLUSION: 1. Numerous and extensive blastic lesions of the visualized osseous structures as above compatible with metastatic disease. In a female patient, breast carcinoma would be most likely. There is nondisplaced pathologic fracturing of both sacral ala. There is patchy cortical destruction of the left iliac bone. 2. 3 mm nonobstructing stone of the right kidney. 3. Benign-appearing left adrenal adenoma. Jag Mckeon MD Chest CT 11/26/16 0000 Signed Impressions: Service Date/Time: , November 26, 2016 20:19 - CONCLUSION: 1. Scarring versus atelectasis of the right lung base and within the mass a focal nodular area as above. This should be followed. Lungs are otherwise clear. 2. Widespread blastic metastatic disease of the visualized osseous structures as delineated above. Focal cortical thinning right pedicle and lamina of T10 and mild compression deformity of T9 vertebral body 3. Right breast lumpectomy changes. 4. Enlarged mediastinal lymph node in the AP window of concern for metastatic disease. No axillary lymphadenopathy demonstrated. Jag Mckeon MD Objective Remarks O. CONSTITUTIONAL/GEN: normally nourished, in no distress today EYES: conjunctiva normal, PERRLA, EOMI. LUNGS: Clear to auscultation bilaterally, respiratory effort is normal. CARDIOVASCULAR: RRR without murmur or gallop. No significant edema. GI/ABD: soft without masses, without organomegaly. Scar from tummy-tuck. BACK: scar midline from bone bx NEURO: No focal deficits. SKIN: color normal, no rashes noted. HEME/LYMPH: no bruising, petechia or significant adenopathy MUSC: back is normal in appearance. Extremities are normal in appearance. PSYCH/MENTAL STATUS: Alert and oriented x 3. (Luis Miguel Rider MD R1) A/P Assessment and Plan Patient is a 56-year-old woman with a history of breast cancer s/p partial mastectomy and radiation therapy who presents with intractable back pain, found to have lytic lesions and pathological fractures on imaging. She presented to the emergency department because her progressively worsening pain has become unbearable. Admitted for pain control and oncology consult. Patient had bone lesion biopsied this morning of 12/01/16. Discharge Planning When pain is controlled and per oncology recommendations. (Luis Miguel Rider MD R1) Attending Attestation Patient seen and examined. Case reviewed and discussed with the resident team. Agree with plan of care as discussed with me and documented in the resident note. (Diana Duval MD) Problem List: (1) Osteolytic lesion due to metastasis Status: Acute Plan: Consult medical oncology. Recommendations appreciated below: * Restaging imaging with CT scan of his thorax and whole-body bone scan have been performed. 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 1. Biopsy of a blastic lesion happened this morning of 12/01/2016. 2. For management for breast cancer she has been initiated on palliative endocrine therapy with anastrozole. Added calcium plus vitamin D. 3. Pamidronate x 1 dose for metastatic breast cancer to bone. 4. Will resume Lovenox because bone biopsy complete. 5. Pain control: With long and short acting morphine but seems to be working well. -Continue Arimidex per oncology Pain control: * Tylenol 650 mA by mouth every 6 hours when necessary for pain 1-2 * Dilaudid 2 mg IV every 3 hours when necessary for pain 3-5 * Dilaudid 3 mg IV push every 3 hours when necessary for pain 6-10 * Dilaudid 3 mg IV every 3 hours scheduled around the clock * Morphine SR 60 mg by mouth every 12 hours scheduled around the clock * Morphine IR 30 mg by mouth every 4 hours when necessary for breakthrough pain For constipation: Lindsey-Colace 2 tab by mouth twice a day MiraLAX by mouth scheduled daily Lactulose (2) Low back pain Status: Acute Plan: See assessment and plan above. (3) Tobacco use Status: Acute Plan: Patient smokes between half pack to a pack a day. Nicotine 21 mg patch 1 patch TD daily (4) Insomnia Status: Acute Plan: Patient reported sleeping better last night. Ativan 2mg PO q4h for insomnia or anxiety (5) Nutrition, metabolism, and development symptoms Status: Acute Plan: Fluids: Tolerating by mouth Electrolytes: Monitor and replete as needed Nutrition: Regular diet as tolerated GI prophylaxis: Not currently indicated at this time (6) No contraindication to deep vein thrombosis (DVT) prophylaxis Status: Acute Plan: Given history of cancer and likely metastatic disease on imaging, Lovenox is the preferred anticoagulant. Lovenox 40 mg subcutaneous every 12 hours -Patient is ambulating (Luis Miguel Rider MD R1) Problem Qualifiers (1) Low back pain: Qualified Code: M54.5 - Midline low back pain without sciatica, unspecified chronicity Luis Miguel Rider MD R1 Dec 01, 2016 12:52 Diana Duval MD Dec 01, 2016 14:40
--- NOTE | 2016-12-01 12:59 | RADRPT ---
EXAM DATE/TIME: 12/01/2016 10:50 [place] COMPARISON: No previous studies available for comparison. INDICATIONS : Bony lesions. SEDATION TIME: 30 minutes BIOPSY SITE: Left iliac MEDICATION(S): 1.) 5 mg midazolam (Versed) IV 2.) 250 mcg fentanyl (Sublimaze) IV DEVICE(S): 1.) 11 gauge Bone biopsy needle MEDICAL HISTORY : Carcinoma, breast. SURGICAL HISTORY : None. ENCOUNTER: Initial ACUITY: 1 day PAIN SCORE: 0/10 LOCATION: pelvis A total of one core specimen(s) were obtained and sent to the laboratory for pathologic evaluation. PROCEDURE: 1. CT guided bone deep biopsy. 2. Conscious sedation with continuous EKG and oximetry monitoring. Prior to the procedure informed consent was obtained. Any appropriate prior imaging studies were rev iewed. The site was prepped in a sterile fashion. Full sterile technique was used, including cap, mask, nayla rile gloves and gown and a large sterile sheet. Hand hygiene and 2% chlorhexidine and/or betadine/al cohol prep was utilized per protocol for cutaneous antisepsis. The skin and subcutaneous tissues wer e infiltrated with local anesthetic solution. With CT guidance the previously identified target was localized. Biopsy was performed using the presc ribed needle as above. Adequate hemostasis was obtained with compression at the puncture site. Follow-up CT scan reveals no hemorrhage. The patient tolerated the procedure well and there were no complications. The patient was returned to the Radiology Outpatient Unit in stable condition. CONCLUSION: Uncomplicated CT guided biopsy. Ted Castillo MD on December 01, 2016 at 12:57 Board Certified Radiologist. This report was verified electronically.
[2016-12-01] MEDS ORDERED: HYDROmorphone HCL PF 2 MG/ML VIAL IV PRN (15:00)
[2016-12-01] MEDS ORDERED: HYDROmorphone HCL PF 2 MG/ML VIAL IV PUSH PRN (16:00)
[2016-12-01] MEDS: MORPHINE SULFATE 30 MG TAB PO PRN ×2 (19:17→23:24)
[2016-12-01] MEDS: LORazepam 2 MG TAB PO PRN (20:25)
[2016-12-02] VITALS (7 sets, daily range): BP systolic 89–110; BP diastolic 53–69; PULSE 63–90; RESP 16–20; TEMP 96.6–98.2; O2SAT 95–100
[2016-12-02] MEDS: LORazepam 2 MG TAB PO PRN ×2 (02:15→19:54)
[2016-12-02] MEDS: HYDROmorphone HCL PF 4 MG/ML VIAL IV PUSH SCH ×3 (03:44→08:25)
[2016-12-02] MEDS: MORPHINE SULFATE 60 MG CONTROLLED RELEASE TAB PO SCH ×3 (03:44→21:31)
[2016-12-02] MEDS: MORPHINE SULFATE 30 MG TAB PO PRN ×2 (06:28→22:03)
--- NOTE | 2016-12-02 07:45 | HHI.PR ---
. Attending Note Hematology/Oncology Attending note: When the patient's pain is managed with oral meds, she is clear for d/c home from my stand point. Pls fax her her demographics to my New Patient office at [phone] requesting out patient follow up with me in the up coming weeks. She may be d/n[place] on anastrazole 1mg po daily. Thank you. - Vital Signs Date Time Temp Pulse Resp B/P Pulse Ox O2 Delivery O2 Flow Rate FiO2 12/02/16 04:00 97.7 90 16 97/53 96 12/02/16 00:00 96.6 78 16 96/58 96 12/01/16 20:00 97.6 70 16 100/60 96 12/01/16 16:00 98.6 67 18 112/72 95 12/01/16 13:25 70 18 114/57 96 12/01/16 12:50 56 18 131/86 95 12/01/16 12:20 62 18 106/53 94 12/01/16 11:50 63 18 100/63 93 12/01/16 11:35 98.0 70 18 97/57 93 12/01/16 08:00 98.8 67 17 102/69 95 CV - Regular Rate and Rhythm No Murmur Lungs - Clear to Auscultation Abdomen - Soft, Nontender Active Bowel Sounds Present No Masses Extremities - Warm without Edema No Sores or Open Wounds -: 12/01/16 0553 12/01/16 0553 Wang Candelaria MD Dec 02, 2016 07:45
[2016-12-02] MEDS: CHOLECALCIFEROL (VIT D3) 1000 UNIT TAB PO SCH (08:25)
[2016-12-02] MEDS: DOCUSATE SODIUM 50 MG/SENNA 8.6 MG TAB PO SCH ×2 (08:25→19:51)
[2016-12-02] MEDS: POLYETHYLENE GLYCOL 17 GM PKG PO SCH (08:25)
[2016-12-02] MEDS: LACTULOSE SYRUP 20 GM/30 ML CUP PO SCH (08:25)
[2016-12-02] MEDS: CALCIUM CARBONATE 1.25 GM (CA 500 MG) TAB PO SCH ×2 (08:25→19:51)
[2016-12-02] MEDS: REMOVE OLD PATCH TD SCH (08:26)
[2016-12-02] MEDS: NICOTINE 21 MG/24 HR PATCH TD SCH (08:26)
[2016-12-02] MEDS: SODIUM CHLORIDE 0.9% FLUSH 5 ML FLUSH FLUSH SCH ×2 (09:00→20:57)
--- NOTE | 2016-12-02 10:09 | HHI.FPPN ---
Subjective Remarks naeo. 3pm, 5pm pain. Objective Vitals Vital Signs Date Time Temp Pulse Resp B/P Pulse Ox O2 Delivery O2 Flow Rate FiO2 12/02/16 08:00 98.2 75 20 89/58 95 12/02/16 04:00 97.7 90 16 97/53 96 12/02/16 00:00 96.6 78 16 96/58 96 12/01/16 20:00 97.6 70 16 100/60 96 12/01/16 16:00 98.6 67 18 112/72 95 12/01/16 13:25 70 18 114/57 96 12/01/16 12:50 56 18 131/86 95 12/01/16 12:20 62 18 106/53 94 12/01/16 11:50 63 18 100/63 93 12/01/16 11:35 98.0 70 18 97/57 93 I/O 12/01/16 12/01/16 12/01/16 12/02/16 12/02/16 12/02/16 07:00 15:00 23:00 07:00 15:00 23:00 Intake Total 0 ml 480 ml 360 ml 240 ml Balance 0 ml 480 ml 360 ml 240 ml Intake Oral 0 ml 480 ml 360 ml 240 ml # Voids 2 3 2 2 # Bowel Movements 0 0 0 Result Diagram: 12/01/16 0553 12/01/16 0553 Objective Remarks O. CONSTITUTIONAL/GEN: normally nourished, in no distress today EYES: conjunctiva normal, PERRLA, EOMI. LUNGS: Clear to auscultation bilaterally, respiratory effort is normal. CARDIOVASCULAR: RRR without murmur or gallop. No significant edema. GI/ABD: soft without masses, without organomegaly. Scar from tummy-tuck. BACK: scar midline from bone bx NEURO: No focal deficits. SKIN: color normal, no rashes noted. HEME/LYMPH: no bruising, petechia or significant adenopathy MUSC: back is normal in appearance. Extremities are normal in appearance. PSYCH/MENTAL STATUS: Alert and oriented x 3. A/P Assessment and Plan Patient is a 56-year-old woman with a history of breast cancer s/p partial mastectomy and radiation therapy who presents with intractable back pain, found to have lytic lesions and pathological fractures on imaging. She presented to the emergency department because her progressively worsening pain has become unbearable. Admitted for pain control and oncology consult. Patient had bone lesion biopsied this morning of 12/01/16. Discharge Planning When pain is controlled and per oncology recommendations. Problem List: (1) Osteolytic lesion due to metastasis Status: Acute Plan: Consult medical oncology. Recommendations appreciated below: * Restaging imaging with CT scan of his thorax and whole-body bone scan have been performed. CT guided biopsy of quality audit representative lesion, which would help guide possible palliative radiation, investigate into if she qualifies for patient assistance program. 1. Biopsy of a blastic lesion happened this morning of 12/01/2016. 2. For management for breast cancer she has been initiated on palliative endocrine therapy with anastrozole. Added calcium plus vitamin D. 3. Pamidronate x 1 dose for metastatic breast cancer to bone. 4. Will resume Lovenox because bone biopsy complete. 5. Pain control: With long and short acting morphine but seems to be working well. -Continue Arimidex per oncology Pain control: * Tylenol 650 mA by mouth every 6 hours when necessary for pain 1-2 * Dilaudid 2 mg IV every 3 hours when necessary for pain 3-5 * Dilaudid 3 mg IV push every 3 hours when necessary for pain 6-10 * Dilaudid 3 mg IV every 3 hours scheduled around the clock * Morphine SR 60 mg by mouth every 12 hours scheduled around the clock * Morphine IR 30 mg by mouth every 4 hours when necessary for breakthrough pain For constipation: Lindsey-Colace 2 tab by mouth twice a day MiraLAX by mouth scheduled daily Lactulose (2) Low back pain Status: Acute Plan: See assessment and plan above. (3) Tobacco use Status: Acute Plan: Patient smokes between half pack to a pack a day. Nicotine 21 mg patch 1 patch TD daily (4) Insomnia Status: Acute Plan: Patient reported sleeping better last night. Ativan 2mg PO q4h for insomnia or anxiety (5) Nutrition, metabolism, and development symptoms Status: Acute Plan: Fluids: Tolerating by mouth Electrolytes: Monitor and replete as needed Nutrition: Regular diet as tolerated GI prophylaxis: Not currently indicated at this time (6) No contraindication to deep vein thrombosis (DVT) prophylaxis Status: Acute Plan: Given history of cancer and likely metastatic disease on imaging, Lovenox is the preferred anticoagulant. Lovenox 40 mg subcutaneous every 12 hours -Patient is ambulating Problem Qualifiers (1) Low back pain: Qualified Code: M54.5 - Midline low back pain without sciatica, unspecified chronicity Luis Miguel Rider MD R1 Dec 02, 2016 10:09
[2016-12-02] MEDS: MORPHINE SULFATE 30 MG TAB PO SCH ×2 (12:21→16:56)
[2016-12-02] MEDS: ENOXAPARIN SODIUM 40 MG/0.4 ML SYRINGE SQ SCH (12:21)
--- NOTE | 2016-12-02 15:08 | HHI.FPPN ---
Subjective Remarks Patient seen, examined and discussed with medicine team. This is a 56-year-old female with known metastatic cancer to multiple skeletal sites. Overnight, she had a recurrence of the severe pain for a couple of hours starting at 5 PM to 7 PM, as well as some severe pain this morning at 3 AM. She reports this pain as intolerable. She is having regular bowel movements, and at times seen this morning, she is pain-free. The plan is to discharge her to oncology follow-up once she is comfortable on by mouth pain medications. Objective Vitals Vital Signs Date Time Temp Pulse Resp B/P Pulse Ox O2 Delivery O2 Flow Rate FiO2 12/02/16 08:00 98.2 75 20 89/58 95 12/02/16 04:00 97.7 90 16 97/53 96 12/02/16 00:00 96.6 78 16 96/58 96 12/01/16 20:00 97.6 70 16 100/60 96 12/01/16 16:00 98.6 67 18 112/72 95 I/O 12/01/16 12/01/16 12/01/16 12/02/16 12/02/16 12/02/16 06:59 14:59 22:59 06:59 14:59 22:59 Intake Total 0 ml 480 ml 360 ml 240 ml Balance 0 ml 480 ml 360 ml 240 ml Intake Oral 0 ml 480 ml 360 ml 240 ml # Voids 2 3 2 2 # Bowel Movements 0 0 0 Result Diagram: 12/01/16 0553 12/01/16 0553 Imaging Last Impressions Bone Biopsy CT 12/01/16 0851 Signed Impressions: Service Date/Time: Thursday, December 01, 2016 10:50 - CONCLUSION: Uncomplicated CT guided biopsy. Ted Castillo MD Bone Scan Nuclear Medicine 11/27/16 0000 Signed Impressions: Service Date/Time: Sunday, November 27, 2016 12:08 - CONCLUSION: Diffuse bony metastatic disease. Ted Castillo MD Abdomen/Pelvis CT 11/26/16 0620 Signed Impressions: Service Date/Time: October 07:05 - CONCLUSION: 1. Numerous and extensive blastic lesions of the visualized osseous structures as above compatible with metastatic disease. In a female patient, breast carcinoma would be most likely. There is nondisplaced pathologic fracturing of both sacral ala. There is patchy cortical destruction of the left iliac bone. 2. 3 mm nonobstructing stone of the right kidney. 3. Benign-appearing left adrenal adenoma. Jag Mckeon MD Chest CT 11/26/16 0000 Signed Impressions: Service Date/Time: October 20:19 - CONCLUSION: 1. Scarring versus atelectasis of the right lung base and within the mass a focal nodular area as above. This should be followed. Lungs are otherwise clear. 2. Widespread blastic metastatic disease of the visualized osseous structures as delineated above. Focal cortical thinning right pedicle and lamina of T10 and mild compression deformity of T9 vertebral body 3. Right breast lumpectomy changes. 4. Enlarged mediastinal lymph node in the AP window of concern for metastatic disease. No axillary lymphadenopathy demonstrated. Jag Mckeon MD Objective Remarks O. CONSTITUTIONAL/GEN: normally nourished, in no distress when seen but reported significant distress last evening and early this morning. EYES: conjunctiva normal, PERRLA, EOMI. LUNGS: Clear to auscultation bilaterally, respiratory effort is normal. CARDIOVASCULAR: RRR without murmur or gallop. No significant edema. GI/ABD: soft without masses, without organomegaly. Scar from tummy-tuck. BACK: scar midline from bone bx NEURO: No focal deficits. SKIN: color normal, no rashes noted. HEME/LYMPH: no bruising, petechia or significant adenopathy MUSC: back is normal in appearance. Extremities are normal in appearance. PSYCH/MENTAL STATUS: Alert and oriented x 3. A/P Assessment and Plan Patient is a 56-year-old woman with a history of breast cancer s/p partial mastectomy and radiation therapy who presented with intractable back pain, found to have lytic lesions and pathological fractures on imaging. She presented to the emergency department because her progressively worsening pain has become unbearable. Admitted for pain control and oncology consult. Patient had bone lesion biopsied the morning of 12/01/16, results pending. Discharge Planning When pain is controlled on by mouth medication and per oncology recommendations. Attending Attestation Patient seen and examined. Case reviewed and discussed with the resident team. Agree with plan of care as discussed with me and documented in the my note. Problem List: (1) Osteolytic lesion due to metastasis Status: Acute Plan: Medical oncology consultation obtained, recommendations appreciated below: * Restaging imaging with CT scan of the thorax and whole-body bone scan have been performed. CT guided biopsy of quality assurance representative lesion done December 01, which would help guide possible palliative radiation, investigate into if she qualifies for patient assistance program. 1. Biopsy of a blastic lesion happened the morning of 12/01/2016. 2. For management for breast cancer she has been initiated on palliative endocrine therapy with anastrozole 1 mg daily. Added calcium plus vitamin D. 3. Pamidronate x 1 dose for metastatic breast cancer to bone. 4. Will resume Lovenox because bone biopsy complete. 5. Pain control: With long and short acting morphine seems to be working fairly well, however some significant breakthrough is noted when time for the every 12 hours dose. -Continue Arimidex per oncology Pain control: * Tylenol 650 mA by mouth every 6 hours when necessary for pain 1-2 * Discontinue Dilaudid * Morphine SR 60 mg by mouth every 8 hours scheduled around the clock * Morphine IR 30 mg every 6 hours scheduled around the clock * Morphine IR 30 mg by mouth every 3 hours when necessary for breakthrough pain For constipation: Lindsey-Colace 2 tab by mouth twice a day MiraLAX by mouth scheduled daily Lactulose (2) Low back pain Status: Acute Plan: See assessment and plan above. (3) Tobacco use Status: Acute Plan: Patient smokes between half pack to a pack a day. Nicotine 21 mg patch 1 patch TD daily, off at bedtime (4) Insomnia Status: Acute Plan: Patient reported sleeping better last night. Ativan 2mg PO q4h for insomnia or anxiety (5) Nutrition, metabolism, and development symptoms Status: Resolved Plan: Fluids: Tolerating by mouth Electrolytes: Monitor and replete as needed Nutrition: Regular diet as tolerated GI prophylaxis: Not currently indicated at this time (6) No contraindication to deep vein thrombosis (DVT) prophylaxis Status: Acute Plan: Given history of cancer and likely metastatic disease on imaging, Lovenox is the preferred anticoagulant. Lovenox 40 mg subcutaneous every 12 hours -Patient is ambulating in the room Problem Qualifiers (1) Low back pain: Qualified Code: M54.5 - Midline low back pain without sciatica, unspecified chronicity (2) Insomnia: Qualified Code: G47.01 - Insomnia due to medical condition Diana Duval MD Dec 02, 2016 15:08
[2016-12-02] MEDS: ANASTROZOLE 1 MG TAB PO SCH (16:54)
[2016-12-03 00:06] VITALS: BP 117/77; PULSE 89; RESP 17; TEMP 96.8; O2SAT 97
[2016-12-03] MEDS: MORPHINE SULFATE 30 MG TAB PO SCH ×4 (00:09→17:23)
[2016-12-03] MEDS: LORazepam 2 MG TAB PO PRN ×3 (00:09→09:02)
[2016-12-03 04:05] VITALS: BP 81/52; PULSE 80; RESP 17; TEMP 97.3; O2SAT 97
[2016-12-03] MEDS: MORPHINE SULFATE 60 MG CONTROLLED RELEASE TAB PO SCH ×3 (04:15→20:52)
[2016-12-03 08:00] VITALS: BP 95/58; PULSE 65; RESP 20; TEMP 96.5; O2SAT 96
--- NOTE | 2016-12-03 08:46 | HHI.FPPN ---
Subjective Remarks No acute events overnight. Except for some low blood pressure to 80s over 50s, afebrile vital signs stable. Patient reports that her pain is most well controlled. She did have a little bit of pain 5 PM yesterday, but her pain was much better than previous nights. She also reports moving her bowels regularly. Discussed poor prognosis and need for follow-up with patient. Patient has a positive attitude about her prognosis. (Luis Miguel Rider MD R1) Remarks Pt. doubts her prognosis and her diagnosis. (Diana Duval MD) Objective Vitals Vital Signs Date Time Temp Pulse Resp B/P Pulse Ox O2 Delivery O2 Flow Rate FiO2 12/03/16 07:46 Room Air 12/03/16 04:05 97.3 80 17 81/52 97 12/03/16 00:06 96.8 89 17 117/77 97 12/02/16 20:13 96.8 63 17 110/63 97 12/02/16 16:56 97.7 80 16 110/69 97 12/02/16 12:00 97.6 69 16 89/56 100 I/O 12/02/16 12/02/16 12/02/16 12/03/16 12/03/16 12/03/16 07:00 15:00 23:00 07:00 15:00 23:00 Intake Total 240 ml 720 ml 600 ml 480 ml Output Total 800 ml Balance 240 ml -80 ml 600 ml 480 ml Intake Oral 240 ml 720 ml 600 ml 480 ml Output Urine Total 800 ml # Voids 2 4 4 2 # Bowel Movements 0 1 1 0 (Luis Miguel Rider MD R1) Result Diagram: 12/01/16 0553 12/01/16 0553 Imaging Last Impressions Bone Biopsy CT 12/01/16 0851 Signed Impressions: Service Date/Time: Thursday, December 01, 2016 10:50 - CONCLUSION: Uncomplicated CT guided biopsy. Ted Castillo MD Bone Scan Nuclear Medicine 11/27/16 0000 Signed Impressions: Service Date/Time: Sunday, November 27, 2016 12:08 - CONCLUSION: Diffuse bony metastatic disease. Ted Castillo MD Abdomen/Pelvis CT 11/26/16 0620 Signed Impressions: Service Date/Time: October 07:05 - CONCLUSION: 1. Numerous and extensive blastic lesions of the visualized osseous structures as above compatible with metastatic disease. In a female patient, breast carcinoma would be most likely. There is nondisplaced pathologic fracturing of both sacral ala. There is patchy cortical destruction of the left iliac bone. 2. 3 mm nonobstructing stone of the right kidney. 3. Benign-appearing left adrenal adenoma. Jag Mckeon MD Chest CT 11/26/16 0000 Signed Impressions: Service Date/Time: October 20:19 - CONCLUSION: 1. Scarring versus atelectasis of the right lung base and within the mass a focal nodular area as above. This should be followed. Lungs are otherwise clear. 2. Widespread blastic metastatic disease of the visualized osseous structures as delineated above. Focal cortical thinning right pedicle and lamina of T10 and mild compression deformity of T9 vertebral body 3. Right breast lumpectomy changes. 4. Enlarged mediastinal lymph node in the AP window of concern for metastatic disease. No axillary lymphadenopathy demonstrated. Jag Mckeon MD Objective Remarks O. CONSTITUTIONAL/GEN: normally nourished, pleasant, in no distress EYES: conjunctiva normal, PERRLA, EOMI. LUNGS: Clear to auscultation bilaterally, respiratory effort is normal. CARDIOVASCULAR: RRR without murmur or gallop. No significant edema. GI/ABD: soft without masses, without organomegaly. Scar from tummy-tuck. BACK: scar midline from bone bx NEURO: No focal deficits. SKIN: color normal, no rashes noted. HEME/LYMPH: no bruising, petechia or significant adenopathy MUSC: back is normal in appearance. Extremities are normal in appearance. PSYCH/MENTAL STATUS: Alert and oriented x 3. (Luis Miguel Rider MD R1) A/P Assessment and Plan Patient is a 56-year-old woman with a history of breast cancer s/p partial mastectomy and radiation therapy who presented with intractable back pain, found to have lytic lesions and pathological fractures on imaging. She presented to the emergency department because her progressively worsening pain has become unbearable. Admitted for pain control and oncology consult. Patient had bone lesion biopsied the morning of 12/01/16, results show no malignancy. Discharge Planning When pain is controlled on by mouth medication and per oncology recommendations. Likely today. (Luis Miguel Rider MD R1) Attending Attestation Patient seen and examined. Case reviewed and discussed with the resident team. Agree with plan of care as discussed with me and documented in the resident note. (Diana Duval MD) Problem List: (1) Osteolytic lesion due to metastasis Status: Acute Plan: Medical oncology consultation obtained, recommendations appreciated below: * Restaging imaging with CT scan of the thorax and whole-body bone scan have been performed. CT guided biopsy of retail field representative lesion done December 01, which would help guide possible palliative radiation, investigate into if she qualifies for patient assistance program. Pt received pamidronate x 1 dose for metastatic breast cancer to bone. 1. Biopsy of a blastic lesion happened the morning of 12/01/2016. Results show no malignancy. 2. For management for breast cancer she has been initiated on palliative endocrine therapy with anastrozole 1 mg daily. Added calcium plus vitamin D. 3. Follow-up with Dr. Candelaria in clinic in the following weeks 4. Pain control: With long and short acting morphine seems to be working fairly well -Continue Arimidex 1mg po qd per oncology Pain control: * Tylenol 650 mg by mouth every 6 hours when necessary for pain 1-2 * Discontinue Dilaudid * Morphine SR 60 mg by mouth every 8 hours scheduled around the clock * Morphine IR 30 mg every 6 hours scheduled around the clock * Morphine IR 30 mg by mouth every 3 hours when necessary for breakthrough pain For constipation: Lindsey-Colace 2 tab by mouth twice a day MiraLAX by mouth scheduled daily Lactulose (2) Low back pain Status: Acute Plan: See assessment and plan above. (3) Tobacco use Status: Acute Plan: Patient smokes between half pack to a pack a day. Nicotine 21 mg patch 1 patch TD daily, off at bedtime (4) Insomnia Status: Acute Plan: Patient reported sleeping better last night. Ativan 2mg PO q4h for insomnia or anxiety (5) Nutrition, metabolism, and development symptoms Status: Resolved Plan: Fluids: Tolerating by mouth Electrolytes: Monitor and replete as needed Nutrition: Regular diet as tolerated GI prophylaxis: Not currently indicated at this time (6) No contraindication to deep vein thrombosis (DVT) prophylaxis Status: Acute Plan: Given history of cancer and likely metastatic disease on imaging, Lovenox is the preferred anticoagulant. Lovenox 40 mg subcutaneous every 12 hours -Patient is ambulating in the room (Luis Miguel Rider MD R1) Problem Qualifiers (1) Low back pain: Qualified Code: M54.5 - Midline low back pain without sciatica, unspecified chronicity (2) Insomnia: Qualified Code: G47.01 - Insomnia due to medical condition Luis Miguel Rider MD R1 Dec 03, 2016 08:46 Diana Duval MD Dec 03, 2016 13:30
[2016-12-03] MEDS ORDERED: VITA100018 PO (08:56)
[2016-12-03] MEDS ORDERED: POLY17S PO (08:56)
[2016-12-03] MEDS ORDERED: ANASTROZOLE PO (08:56)
[2016-12-03] MEDS ORDERED: MORP1TAB26 PO (08:56)
[2016-12-03] MEDS ORDERED: MSIR30 PO ×2 (08:56→11:05)
[2016-12-03] MEDS ORDERED: SENN1TAB PO (08:56)
--- NOTE | 2016-12-03 08:57 | HHI.DCPOC ---
Discharge Care Plan Diagnosis: (1) Osteolytic lesion due to metastasis (2) Metastatic breast cancer (3) Breast cancer (4) Low back pain Goals to Promote Your Health * To prevent worsening of your condition and complications * To maintain your health at the optimal level Directions to Meet Your Goals Take your medications as prescribed Follow your dietary instruction Follow activity as directed Keep your appointments as scheduled Take your immunizations and boosters as scheduled If your symptoms worsen call your PCP, if no PCP go to Urgent Care Center or Emergency Room Smoking is Dangerous to Your Health. Avoid second hand smoke Call the 24-hour hour crisis hotline for domestic abuse at Minh Duval MD R2 Dec 03, 2016 08:56
--- NOTE | 2016-12-03 08:58 | HHI.DCPOC ---
Discharge Care Plan Diagnosis: (1) Breast cancer (2) Low back pain Goals to Promote Your Health * To prevent worsening of your condition and complications, please take your medications as prescribed and follow up with Dr. Candelaria in the coming weeks. Directions to Meet Your Goals Take your medications as prescribed Follow your dietary instruction Follow activity as directed Keep your appointments as scheduled Take your immunizations and boosters as scheduled If your symptoms worsen call your PCP, if no PCP go to Urgent Care Center or Emergency Room Smoking is Dangerous to Your Health. Avoid second hand smoke Call the 24-hour hour crisis hotline for domestic abuse at Luis Miguel Rider MD R1 Dec 03, 2016 08:58
[2016-12-03] MEDS: REMOVE OLD PATCH TD SCH (09:00)
[2016-12-03] MEDS: CHOLECALCIFEROL (VIT D3) 1000 UNIT TAB PO SCH (09:02)
[2016-12-03] MEDS: DOCUSATE SODIUM 50 MG/SENNA 8.6 MG TAB PO SCH ×2 (09:02→20:51)
[2016-12-03] MEDS: NICOTINE 21 MG/24 HR PATCH TD SCH (09:02)
[2016-12-03] MEDS: ANASTROZOLE 1 MG TAB PO SCH (09:02)
[2016-12-03] MEDS: CALCIUM CARBONATE 1.25 GM (CA 500 MG) TAB PO SCH ×2 (09:02→20:51)
[2016-12-03] MEDS: POLYETHYLENE GLYCOL 17 GM PKG PO SCH (09:02)
[2016-12-03] MEDS: LACTULOSE SYRUP 20 GM/30 ML CUP PO SCH (09:02)
[2016-12-03] MEDS: SODIUM CHLORIDE 0.9% FLUSH 5 ML FLUSH FLUSH SCH ×2 (09:04→20:52)
--- NOTE | 2016-12-03 10:17 | PD.ONC.PN ---
Subjective Subjective Remarks Afebrile overnight. Patient resting comfortably. She has some pain in her back , sharp in quality and improved/controlled with current pain regimen. She feels ready to go home. Objective Data Date Time Temp Pulse Resp B/P Pulse Ox O2 Delivery O2 Flow Rate FiO2 12/03/16 08:00 96.5 65 20 95/58 96 12/03/16 07:46 Room Air 12/03/16 04:05 97.3 80 17 81/52 97 12/03/16 00:06 96.8 89 17 117/77 97 12/02/16 20:13 96.8 63 17 110/63 97 12/02/16 16:56 97.7 80 16 110/69 97 12/02/16 12:00 97.6 69 16 89/56 100 12/03/16 12/03/16 12/03/16 07:00 15:00 23:00 Intake Total 480 ml Balance 480 ml Result Diagram: 12/01/16 0553 12/01/16 0553 Administered Medications Medications (Trade) Dose Ordered Sig/Dave Route PRN Reason Start Time Stop Time Status Last Admin Dose Admin IV Flush (NS Flush) 2 ml UNSCH PRN FLUSH FLUSH AFTER USING IV ACCESS 11/26/16 12:00 11/28/16 17:26 IV Flush (NS Flush) 2 ml BID FLUSH 11/26/16 21:00 12/03/16 09:04 Enoxaparin Sodium (Lovenox Inj) 40 mg Q24H SQ 11/26/16 13:00 12/02/16 12:21 Nicotine (Habitrol 21 Mg Patch.24 Hr) 1 patch DAILY TD 11/26/16 14:45 12/03/16 09:02 Miscellaneous Information 1 DAILY TD 11/27/16 09:00 12/02/16 08:26 Polyethylene Glycol (Miralax) 17 gm DAILY PO 11/27/16 14:45 12/03/16 09:02 Lorazepam (Ativan) 2 mg Q4H PRN PO anxiety 11/27/16 17:00 12/03/16 09:02 Senna/Docusate Sodium (Lindsey-Colace) 2 tab BID PO 11/30/16 09:00 12/03/16 09:02 Lactulose (Lactulose Liq) 30 ml DAILY PO 11/30/16 09:00 12/03/16 09:02 Cholecalciferol (Vitamin D3) 1,000 units DAILY PO 12/01/16 09:00 12/03/16 09:02 Calcium Carbonate (Oscal) 500 mg Q12HR PO 11/30/16 21:00 12/03/16 09:02 Hydromorphone HCl (Dilaudid Pf Inj) 2 mg Q3H PRN IV Pain 3-5; if unable to take PO 12/01/16 15:00 12/02/16 19:52 Morphine Sulfate (Oramorph Sr) 60 mg Q8HR PO 12/02/16 14:00 12/03/16 04:15 Morphine Sulfate (Msir) 30 mg Q3H PRN PO BREAKTHROUGH PAIN 12/02/16 11:00 12/02/16 22:03 Morphine Sulfate (Msir) 30 mg Q6HR PO 12/02/16 12:00 12/03/16 06:03 Anastrozole (Arimidex) 1 mg DAILY PO 12/02/16 15:15 12/03/16 09:02 Objective Remarks GENERAL: Middle aged female, bright and alert, in nad. SKIN: Warm and dry. HEAD: Normocephalic. EYES: No injection or drainage. NECK: Supple, trachea midline. CARDIOVASCULAR: Regular rate and rhythm RESPIRATORY: Breath sounds equal bilaterally. No accessory muscle use. GASTROINTESTINAL: Abdomen soft, non-tender, nondistended. EXTREMITIES: No cyanosis NEUROLOGICAL: No obvious focal deficit. Awake, alert, and oriented x3. Assessment/Plan Problem List: (1) Metastatic breast cancer Status: Acute Plan: plan is to control pain, and continue Arimidex. we are working on arranging follow up in clinic pending insurance approval. Hx: The patient was originally treated in [place] with a partial mastectomy and radiation. She has no records from her treatment and we have no pathology reports. She was previously on Femara but has been out of this medication for a few months. She also reports previously being on Zometa. Since being in the [place] she has been attempting to get insurance and disability to see a physician. Her pain was intense and she came into the ER on 11/[address] scan of the abdomen and pelvis showed numerous and extensive blastic lesions. 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 -- Pt's pain controlled with current pain regimen of short and long acting medications. Assessment 56 y/o female who presents to the hospital with severe pain. Numerous and extensive blastic lesions consistent with metastases were found on CT abdomen and pelvis. Plan 1. pain well controlled. patient cleared for discharge 2. face sheet faxed to new patient referrals. Patient will need to follow up in clinic within 1-2 weeks. Attending Statement The exam, history, and the medical decision-making described in the above note were completed with the assistance of the mid-level provider. I reviewed and agree with the findings presented. I attest that I had a [id number] encounter with the patient on the same day, and personally performed and documented my assessment and findings in the medical record. Ms. Jarrell was seen and examined. I delivered the anastrazole samples to her from my clinic. The patient reports she was unable to get the long acting morphine filled at the pharmacy and therefore will remain in the hospital overnight. We discussed the negative results of the bone biopsy; i.e. there were no malignant cells in the specimen. Given her presentation, history of breast ca and elevated tumor markers; I suspect she has metastatic malignancy until proven otherwise. I will plan to perform out patient imaging; likely a PET/CT scan and will repeat a biopsy as an out patient. Follow up instructions were provided. Additionally I gave her male aluminum molding machine operator a copy of my initial consultation note because they have a meeting at [facility] in the upcoming days. Carrie Miguel Dec 03, 2016 10:17 Wang Candelaria MD Dec 03, 2016 18:17
[2016-12-03 12:00] VITALS: BP 89/52; PULSE 88; RESP 20; TEMP 95.9; O2SAT 97
[2016-12-03] MEDS: ENOXAPARIN SODIUM 40 MG/0.4 ML SYRINGE SQ SCH (13:00)
[2016-12-03] MEDS ORDERED: LORA-475 PO (15:06)
[2016-12-03 16:00] VITALS: BP 93/61; PULSE 78; RESP 20; TEMP 98.3; O2SAT 96
[2016-12-03 20:50] VITALS: BP 87/60; PULSE 82; RESP 16; TEMP 97.4; O2SAT 97
[2016-12-03] MEDS ORDERED: ZOLPIDEM TARTRATE 5 MG TAB PO ONE (21:15)
[2016-12-03] MEDS: MORPHINE SULFATE 30 MG TAB PO PRN (22:26)
[2016-12-04 00:20] VITALS: BP 105/65; PULSE 63; RESP 16; TEMP 97.3; O2SAT 97
[2016-12-04] MEDS: MORPHINE SULFATE 30 MG TAB PO SCH ×3 (00:38→12:17)
[2016-12-04 03:40] VITALS: BP 93/54; PULSE 66; RESP 16; TEMP 96.9; O2SAT 96
[2016-12-04] MEDS: MORPHINE SULFATE 30 MG TAB PO PRN ×2 (03:49→09:23)
[2016-12-04] MEDS: MORPHINE SULFATE 60 MG CONTROLLED RELEASE TAB PO SCH ×2 (04:59→14:31)
[2016-12-04 08:00] VITALS: BP 99/63; PULSE 83; RESP 16; TEMP 97; O2SAT 97
[2016-12-04] MEDS: SODIUM CHLORIDE 0.9% FLUSH 5 ML FLUSH FLUSH SCH (09:00)
[2016-12-04] MEDS: REMOVE OLD PATCH TD SCH (09:00)
[2016-12-04] MEDS: LORazepam 2 MG TAB PO PRN (09:23)
[2016-12-04] MEDS: ANASTROZOLE 1 MG TAB PO SCH (09:24)
[2016-12-04] MEDS: CHOLECALCIFEROL (VIT D3) 1000 UNIT TAB PO SCH (09:24)
[2016-12-04] MEDS: LACTULOSE SYRUP 20 GM/30 ML CUP PO SCH (09:24)
[2016-12-04] MEDS: CALCIUM CARBONATE 1.25 GM (CA 500 MG) TAB PO SCH (09:24)
[2016-12-04] MEDS: POLYETHYLENE GLYCOL 17 GM PKG PO SCH (09:24)
[2016-12-04] MEDS: NICOTINE 21 MG/24 HR PATCH TD SCH (09:25)
[2016-12-04] MEDS: DOCUSATE SODIUM 50 MG/SENNA 8.6 MG TAB PO SCH (09:25)
[2016-12-04 12:01] VITALS: BP 103/60; PULSE 79; RESP 16; TEMP 97.2; O2SAT 96
[2016-12-04] MEDS: ENOXAPARIN SODIUM 40 MG/0.4 ML SYRINGE SQ SCH (12:18)
--- NOTE | 2016-12-15 19:35 | HHI.DS ---
Discharge Summary Admission Date Nov 26, 2016 at 11:50 Admitting Diagnosis Metastatic lesions to the spine, severe back pain (1) Osteolytic lesion due to metastasis Diagnosis: Principal Plan: Medical oncology consultation obtained, recommendations appreciated below: * Restaging imaging with CT scan of the thorax and whole-body bone scan have been performed. CT guided biopsy of union representative lesion done December 01, which would help guide possible palliative radiation, investigate into if she qualifies for patient assistance program. Pt received pamidronate x 1 dose for metastatic breast cancer to bone. 1. Biopsy of a blastic lesion happened the morning of 12/01/2016. Results show no malignancy. 2. For management for breast cancer she has been initiated on palliative endocrine therapy with anastrozole 1 mg daily. Added calcium plus vitamin D. 3. Follow-up with Dr. Candelaria in clinic in the following weeks 4. Pain control: With long and short acting morphine seems to be working fairly well -Continue Arimidex 1mg po qd per oncology Pain control: * Tylenol 650 mg by mouth every 6 hours when necessary for pain 1-2 * Discontinue Dilaudid * Morphine SR 60 mg by mouth every 8 hours scheduled around the clock * Morphine IR 30 mg every 6 hours scheduled around the clock * Morphine IR 30 mg by mouth every 3 hours when necessary for breakthrough pain For constipation: Lindsey-Colace 2 tab by mouth twice a day MiraLAX by mouth scheduled daily Lactulose (2) Low back pain Diagnosis: Principal Plan: See assessment and plan above. (3) Tobacco use Diagnosis: Secondary Plan: Patient smokes between half pack to a pack a day. Nicotine 21 mg patch 1 patch TD daily, off at bedtime (4) Insomnia Diagnosis: Secondary Plan: Patient reported sleeping better last night. Ativan 2mg PO q4h for insomnia or anxiety (5) Nutrition, metabolism, and development symptoms Diagnosis: Secondary Plan: Fluids: Tolerating by mouth Electrolytes: Monitor and replete as needed Nutrition: Regular diet as tolerated GI prophylaxis: Not currently indicated at this time (6) No contraindication to deep vein thrombosis (DVT) prophylaxis Diagnosis: Secondary Plan: Given history of cancer and likely metastatic disease on imaging, Lovenox is the preferred anticoagulant. Lovenox 40 mg subcutaneous every 12 hours -Patient is ambulating in the room Consultants Oncology Brief History Patient is a 56-year-old woman with a history of breast cancer presents with intractable back pain, found to have lytic lesions and pathological fractures on imaging. Patient presents today with her boyfriend who she lives with, who is translating for us. She came to the emergency department today because her progressively worsening pain has become unbearable, she couldn't stand, and she hasn't slept in 48 hours despite taking 60 mg of morphine XR every 2 hours. She was first diagnosed and treated for breast cancer in 2012. She underwent lumpectomy and then partial mastectomy as well as radiation therapy in [place] at that time. She denied receiving any chemotherapy. About 4-5 months ago, while she was living hungry, they saw what looked like bone cancer on imaging of her back, did a bone biopsy, which did not show any cancer. For over a year, patient has had progressively worsening back pain, worse on the right than the left. Patient reports that the medication she received in the emergency department only relieved about 10% of her pain. Imaging Last Impressions Bone Biopsy CT 12/01/16 0851 Signed Impressions: Service Date/Time: Thursday, December 01, 2016 10:50 - CONCLUSION: Uncomplicated CT guided biopsy. Ted Castillo MD Bone Scan Nuclear Medicine 11/27/16 0000 Signed Impressions: Service Date/Time: Sunday, November 27, 2016 12:08 - CONCLUSION: Diffuse bony metastatic disease. Ted Castillo MD Abdomen/Pelvis CT 11/26/16 0620 Signed Impressions: Service Date/Time: October 07:05 - CONCLUSION: 1. Numerous and extensive blastic lesions of the visualized osseous structures as above compatible with metastatic disease. In a female patient, breast carcinoma would be most likely. There is nondisplaced pathologic fracturing of both sacral ala. There is patchy cortical destruction of the left iliac bone. 2. 3 mm nonobstructing stone of the right kidney. 3. Benign-appearing left adrenal adenoma. Jag Mckeon MD Chest CT 11/26/16 0000 Signed Impressions: Service Date/Time: October 20:19 - CONCLUSION: 1. Scarring versus atelectasis of the right lung base and within the mass a focal nodular area as above. This should be followed. Lungs are otherwise clear. 2. Widespread blastic metastatic disease of the visualized osseous structures as delineated above. Focal cortical thinning right pedicle and lamina of T10 and mild compression deformity of T9 vertebral body 3. Right breast lumpectomy changes. 4. Enlarged mediastinal lymph node in the AP window of concern for metastatic disease. No axillary lymphadenopathy demonstrated. Jag Mckeon MD PE at Discharge O. CONSTITUTIONAL/GEN: normally nourished, pleasant, in no distress EYES: conjunctiva normal, PERRLA, EOMI. LUNGS: Clear to auscultation bilaterally, respiratory effort is normal. CARDIOVASCULAR: RRR without murmur or gallop. No significant edema. GI/ABD: soft without masses, without organomegaly. Scar from tummy-tuck. BACK: scar midline from bone bx NEURO: No focal deficits. SKIN: color normal, no rashes noted. HEME/LYMPH: no bruising, petechia or significant adenopathy MUSC: back is normal in appearance. Extremities are normal in appearance. PSYCH/MENTAL STATUS: Alert and oriented x 3. Hospital Course Pt was admitted for pain control and oncology workup. Pt's pain was eventually controlled with a combination of long-acting and short-acting opioid medications , per oncology recommendations. Pt also had bone biopsy, which did not show any malignancy. Pt was discharged on a combination of long-acting and short-acting opioid medications, and was instructed to follow up with oncology. Pt also discharged on Anastrozole (Arimidex) and Vitamin D. Pt Condition on Discharge: Stable Discharge Disposition: Discharge Home Discharge Instructions DIET: Follow Instructions for: As Tolerated, No Restrictions Activities you can perform: Regular-No Restrictions, Weight Bearing as Srinivasa Follow up Referrals: Oncology - 1 Week with Wang Candelaria MD PCP Follow-up - 2 Weeks New Medications: Cholecalciferol (Vitamin D3) 1,000 Unit Tab 1000 UNITS PO DAILY #30 TAB Lorazepam (Ativan) 2 Mg Tab 2 MG PO Q4H PRN anxiety #30 TAB Morphine ER (Morphine ER) 60 Mg Tab 60 MG PO Q8HR #90 TAB Morphine IR (Morphine IR) 30 Mg Tab 30 MG PO Q6HR #120 TAB Morphine IR (Morphine IR) 30 Mg Tab 30 MG PO Q3H PRN BREAKTHROUGH PAIN #90 TAB Polyethylene Glycol 3350 Powder (Polyethylene Glycol 3350 Powder) 17 Gm Pow 17 GM PO DAILY #30 BOTTLE Sennosides-Docusate Sodium (Senna Plus 8.6-50 mg) 1 Tab Tab 2 TAB PO BID #60 TAB ([Anastrozole]) 1 MG TAB 1 MG PO DAILY #30 TAB Continued Medications: Ibuprofen (Ibuprofen) 800 Mg Tab 800 MG PO Q8H PRN Pain/Inflammation #30 TAB Discontinued Medications: Hydrocodone-Acetaminophen (Lortab) 5-325 Mg Tab 1-2 TAB PO Q6H PRN PAIN #30 Ref 0 TAB Luis Miguel Rider MD R1 Dec 15, 2016 19:35
== END 2016-12-04 15:41 | disposition home or self-care (01) | DRG 478 ==
LOC: NEPC 05:49 → NEDA 09:23 → OBSVTOIN 11:50 → NEPFCDU 13:38 → N06A 23:16
PROVIDERS: ADMIT Family Medicine; ATTEND Family Medicine
PROC: 0QB33ZX Excision of Left Pelvic Bone, Percutaneous Approach, Diagnostic (ICD-10-PCS; principal; 2016-12-01)
DX: C79.51 Secondary malignant neoplasm of bone (principal); M84.48XA Pathological fracture, other site, initial encounter for fracture; N20.0 Calculus of kidney; F17.210 Nicotine dependence, cigarettes, uncomplicated; Z85.3 Personal history of malignant neoplasm of breast; Z87.442 Personal history of urinary calculi; Z92.3 Personal history of irradiation; M54.5 Low back pain; D35.02 Benign neoplasm of left adrenal gland; F41.9 Anxiety disorder, unspecified; G47.00 Insomnia, unspecified; K59.00 Constipation, unspecified
CPT/HCPCS: 20225; 38221; 71250; 74176; 77012; 78306; 80048; 80053; 81001; 82378; 85025; 85027; 85610; 86300; 88305; 88307; 88311; 96361; 96374; 96375; 99152; A9503; C1830; G0364; J1170; J1650; J1885; J2250; J2270; J2405; J2430; J3010; J7030

== ENCOUNTER 2017-01-29 18:49 | Inpatient (IN) | payer OTHER ==
[~2017-01-29] VITALS: Ht 177.8 cm; Wt 71.7 kg
[~2017-01-29 18:49] MED LIST changes: +ANASTROZOLE PO; -HYDR-3533 PO; +LORA-475 PO; +MORP1TAB26 PO; +MSIR30 PO; +POLY17S PO; +SENN1TAB PO; +VITA100018 PO
[2017-01-29 18:52] VITALS: BP 119/71; PULSE 96; RESP 20; TEMP 98.1; O2SAT 95
[2017-01-29 22:00] VITALS: BP 138/75; PULSE 95; RESP 16; O2SAT 98
[2017-01-29] MEDS ORDERED: HYDROmorphone HCL PF 1 MG/ML VIAL IV PUSH ONE ×2 (22:15→23:00)
[2017-01-29] MEDS ORDERED: ONDANSETRON HCL 4 MG/2 ML VIAL IV PUSH ONE (22:15)
--- NOTE | 2017-01-29 22:40 | PD ---
HPI Chief Complaint: Pain: Acute or Chronic Time Seen by Provider: 22:07 Travel History International Travel<30 days: No Contact w/Intl Traveler<30days: No Traveled to known affect area: No History of Present Illness HPI 56-year-old female complains of mid to low back pain with radiation to the abdomen. Patient has history of metastatic breast carcinoma. Patient had surgical and radiation therapy in [facility] a few years ago. Patient subsequently had palliated endocrine therapy. Patient was seen by physician there and had bone biopsy for possible metastatic disease to the bones. The biopsy was inconclusive. Patient started having severe pain to the mid and low back recently. Imaging study shows extensive bony metastasis. Patient also had PET scan done recently which shows diffuse metastatic disease involving thoracic and lumbar spine and pelvis. Patient is scheduled for interventional radiology for biopsy. Patient is taking morphine at home for pain. Patient states that she has severe pain despite taking the morphine and she was advised by her oncologist to go the ED for evaluation of possible admission for pain control. She denies any headache. Patient denies any chest pain or shortness of breath. Patient states that the pain radiates from the back to the abdomen. Patient denies any nausea vomiting diarrhea. Patient denies any fever chills. Patient denies any focal weakness or numbness of extremity. On a scale of 1-10 the pain is a 10. PFSH Past Medical History Cancer: Yes (breast, bone) Cardiovascular Problems: Yes Chemotherapy: Yes (BONE CA) Endocrine: No Genitourinary: No Hypertension: Yes Immune Disorder: No Musculoskeletal: No Neurologic: No Psychiatric: No Reproductive: No Respiratory: No Radiation Therapy: Yes ?: Not Past Surgical History AICD: No Arteriovenous Shunt: No Insulin Pump: No Joint Replacement: No Pacemaker: No Other Surgery: Yes (right lumpectomy) Social History Alcohol Use: No Tobacco Use: Yes (10 CIG PER TODAY) Substance Use: No Allergies-Medications (Allergen,Severity, Reaction): Coded Allergies: Aspirin (Verified Allergy, Severe, Anaphylaxis, 01/29/17) Reported Meds & Prescriptions Reported Meds & Active Scripts Active Ativan (Lorazepam) 2 Mg Tab 2 Mg PO Q4H PRN Senna Plus 8.6-50 mg (Sennosides-Docusate Sodium) 1 Tab Tab 2 Tab PO BID Morphine ER (Morphine Sulfate) 60 Mg Tab 60 Mg PO Q8HR Morphine IR (Morphine Sulfate) 30 Mg Tab 30 Mg PO Q6HR Vitamin D3 (Cholecalciferol) 1,000 Unit Tab 1,000 Units PO DAILY [Anastrozole] 1 MG Tab 1 Mg PO DAILY Ibuprofen 800 Mg Tab 800 Mg PO Q8H PRN Review of Systems General / Constitutional: No: Fever Eyes: No: Visual changes HENT: No: Headaches Cardiovascular: No: Chest Pain or Discomfort Respiratory: No: Shortness of Breath Gastrointestinal: No: Abdominal Pain Genitourinary: No: Dysuria Musculoskeletal: No: Pain Skin: No Rash Neurologic: No: Weakness Psychiatric: No: Depression Endocrine: No: Polydipsia Hematologic/Lymphatic: No: Easy Bruising Physical Exam Narrative GENERAL: Well-nourished, well-developed patient. SKIN: Warm and dry. HEAD: Normocephalic. EYES: No scleral icterus. No injection or drainage. NECK: Supple, trachea midline. No JVD or lymphadenopathy. CARDIOVASCULAR: Regular rate and rhythm without murmurs, gallops, or rubs. RESPIRATORY: Breath sounds equal bilaterally. No accessory muscle use. GASTROINTESTINAL: Abdomen soft, non-tender, nondistended. MUSCULOSKELETAL: No cyanosis, or edema. BACK: Moderate tenderness on palpation low thoracic lumbar area, without obvious deformity. No CVA tenderness. Neurologic exam normal. Data Data Last Documented VS Vital Signs Date Time Temp Pulse Resp B/P Pulse Ox O2 Delivery O2 Flow Rate FiO2 01/29/17 22:54 16 01/29/17 22:00 95 138/75 98 Room Air 01/29/17 18:52 98.1 Orders Hydromorphone Pf Inj (Dilaudid Pf Inj) (01/29/17 22:15) Ondansetron Inj (Zofran Inj) (01/29/17 22:15) Electrocardiogram (01/29/17 22:41) Complete Blood Count With Diff (01/29/17 22:41) Comprehensive Metabolic Panel (01/29/17 22:41) Prothrombin Time / Inr (Pt) (01/29/17 22:41) Act Partial Throm Time (Ptt) (01/29/17 22:41) Urinalysis - C+S If Indicated (01/29/17 22:41) Chest, Single Ap (01/29/17 22:41) Iv Access Insert/Monitor (01/29/17 22:41) Ecg Monitoring (01/29/17 22:41) Oximetry (01/29/17 22:41) Sodium Chlor 0.9% 1000 Ml Inj (Ns 1000 M (01/29/17 22:45) Hydromorphone Pf Inj (Dilaudid Pf Inj) (01/29/17 23:00) Hydromorphone Pf Inj (Dilaudid Pf Inj) (01/30/17 00:00) Labs Laboratory Tests Test 01/29/17 22:50 White Blood Count 8.5 TH/MM3 Red Blood Count 4.65 MIL/MM3 Hemoglobin 12.9 GM/DL Hematocrit 38.2 % Mean Corpuscular Volume 82.2 FL Mean Corpuscular Hemoglobin 27.8 PG Mean Corpuscular Hemoglobin 33.9 % Concent Red Cell Distribution Width 15.4 % Platelet Count 234 TH/MM3 Mean Platelet Volume 9.6 FL Neutrophils (%) (Auto) 68.7 % Lymphocytes (%) (Auto) 18.9 % Monocytes (%) (Auto) 9.9 % Eosinophils (%) (Auto) 1.9 % Basophils (%) (Auto) 0.6 % Neutrophils # (Auto) 5.8 TH/MM3 Lymphocytes # (Auto) 1.6 TH/MM3 Monocytes # (Auto) 0.8 TH/MM3 Eosinophils # (Auto) 0.2 TH/MM3 Basophils # (Auto) 0.1 TH/MM3 CBC Comment DIFF FINAL Differential Comment Prothrombin Time 10.9 SEC Prothromb Time International 1.0 RATIO Ratio Activated Partial 27.8 SEC Thromboplast Time Sodium Level 139 MEQ/L Potassium Level 4.8 MEQ/L Chloride Level 104 MEQ/L Carbon Dioxide Level 27.8 MEQ/L Anion Gap 7 MEQ/L Blood Urea Nitrogen 11 MG/DL Creatinine 0.65 MG/DL Estimat Glomerular Filtration 95 ML/MIN Rate Random Glucose 84 MG/DL Calcium Level 8.6 MG/DL Total Bilirubin 0.2 MG/DL Aspartate Amino Transf 40 U/L (AST/SGOT) Alanine Aminotransferase 27 U/L (ALT/SGPT) Alkaline Phosphatase 70 U/L Total Protein 7.5 GM/DL Albumin 3.4 GM/DL MDM Medical Decision Making Medical Screen Exam Complete: Yes Emergency Medical Condition: Yes Medical Record Reviewed: Yes Interpretation(s) Last Impressions Chest X-Ray 01/29/17 9095 Signed Impressions: Service Date/Time: Sunday, January 29, 2017 22:41 - CONCLUSION: No new acute findings. Jag Dai MD 23:55 PM. CBC within normal limit. CMP within normal limit. Differential Diagnosis Differential diagnosis including acute exacerbation of bone pain from metastatic breast cancer. Narrative Course 56-year-old female with severe eye pain. History of metastatic breast cancer. I spoke with Dr. Candelaria, her oncologist. Advised patient to be admitted for pain control and bone biopsy on Wednesday. Diagnosis Primary Impression: Metastatic breast cancer Additional Impression: Intractable pain Admitting Information Admitting Physician Requests: Admit Liam Kinsey MD Jan 29, 2017 22:40
[2017-01-29 22:54] VITALS: RESP 16
[2017-01-29] MEDS: SODIUM CHLOR 0.9% 1000 ML INJ 1,000 ML IV SCH (23:01)
--- NOTE | 2017-01-29 23:02 | RADRPT ---
EXAM DATE/TIME: 01/29/2017 22:41 [facility] COMPARISON: CT SIMULATION, January 21, 2017, 14:20. CT THORAX W/O CONTRAST, November 26, 2016, 20:19. INDICATIONS : Shortness of breath. MEDICAL HISTORY : None. SURGICAL HISTORY : None. ENCOUNTER: Initial ACUITY: 1 day PAIN SCORE: 0/10 LOCATION: Bilateral chest FINDINGS: Minimal parenchymal opacity in the lateral right midlung and at the right lung base are basically sta ble from prior CT. No new areas of focal parenchymal opacity are identified. No effusion is suspected . Cardiomediastinal contours are satisfactory for technique and projection. CONCLUSION: No new acute findings. Jag Dai MD on January 29, 2017 at 22:59 Board Certified Radiologist. This report was verified electronically.
[2017-01-29 23:06] LABS: AUTOMATED NEUTROPHIL # 5.8 TH/MM3 (1.8-7.7); BASOPHIL # 0.1 TH/MM3 (0-0.2); BASOPHIL % 0.6 % (0.0-2.0); EOSINOPHIL # 0.2 TH/MM3 (0-0.4); EOSINOPHIL % 1.9 % (0.0-4.0); HEMATOCRIT 38.2 % (35.0-46.0); HEMO FLAGS DIFF FINAL; LYMPH % 18.9 % (9.0-44.0); LYMPHOCYTE # 1.6 TH/MM3 (1.0-4.8); MEAN CELL VOLUME 82.2 FL (80.0-100.0); MEAN CORPUSCULAR HEMOGLOBIN 27.8 PG (27.0-34.0); MEAN CORPUSCULAR HGB CONC 33.9 % (32.0-36.0); MONO % 9.9 % (0.0-8.0); NEUT % 68.7 % (16.0-70.0); PLATELET COUNT 234 TH/MM3 (150-450); RED BLOOD COUNT 4.65 MIL/MM3 (4.00-5.30); RED CELL DISTRIBUTION WIDTH 15.4 % (11.6-17.2); WHITE BLOOD COUNT 8.5 TH/MM3 (4.0-11.0)
[2017-01-29 23:18] LABS: APTT (PATIENT) 27.8 SEC (24.3-30.1); PROTHROMBIN TIME - PATIENT 10.9 SEC (9.8-11.6)
[2017-01-29 23:34] LABS: ANION GAP 7 MEQ/L (5-15)
[2017-01-29 23:40] LABS: ALKALINE PHOSPHATASE 70 U/L (45-117); ALT (GPT) 27 U/L (10-53); AST (GOT) 40 U/L (15-37); BICARBONATE 27.8 MEQ/L (21.0-32.0); BLOOD UREA NITROGEN 11 MG/DL (7-18); CHLORIDE 104 MEQ/L (98-107); GLOMERULAR FILTRATION RATE 95 ML/MIN (>89); POTASSIUM 4.8 MEQ/L (3.5-5.1); SODIUM (NA) 139 MEQ/L (136-145); TOTAL BILIRUBIN ADULT 0.2 MG/DL (0.2-1.0)
[2017-01-30] VITALS (8 sets, daily range): BP systolic 92–118; BP diastolic 57–71; PULSE 64–82; RESP 16–20; TEMP 96.1–98; O2SAT 93–98
[2017-01-30] MEDS ORDERED: LORazepam 2 MG TAB PO PRN
[2017-01-30] MEDS ORDERED: ACETAMINOPHEN 325 MG TAB PO PRN
[2017-01-30] MEDS ORDERED: SODIUM CHLORIDE 0.9% FLUSH 5 ML FLUSH FLUSH PRN
[2017-01-30] MEDS ORDERED: ONDANSETRON HCL 4 MG/2 ML VIAL IVP PRN
[2017-01-30] MEDS ORDERED: BISACODYL 10 MG SUPP PR PRN
[2017-01-30] MEDS ORDERED: MORPHINE SULFATE 30 MG TAB PO SCH
[2017-01-30] MEDS: HYDROmorphone HCL PF 1 MG/ML VIAL IV PRN ×2 (01:25→04:28)
--- NOTE | 2017-01-30 02:49 | HHI.HP ---
[facility] Wang Candelaria MD Admission Diagnosis metastatic breast CA. Intractable pain. Diagnoses: (1) Metastatic breast cancer Diagnosis: Principal (2) Intractable pain Diagnosis: Principal (3) Tobacco use Diagnosis: Principal Travel History International Travel<30 Days: No Contact w/Intl Traveler <30 Da: No Traveled to Known Affected Are: No History of Present Illness This is a 56-year-old [facility] female with a PMH of Breast CA s/p Lumpectomy/ Partial Mastectomy/Chemo/Radiation who presented the ER w/ complaints of severe back pain. Initially diagnosed in 2012, previously underwent treatment in [facility], later had treatment in [facility]. Approx 6 months ago pt developed severe back pain and was evaluated while in [facility], noted to have lytic lesions to lumbar spine, underwent biopsy however results inconclusive per report. Pain progressively worse since then. Admitted here 11/26-12/15/16 for intractable pain, found to have osteolytic lesion s/p biopsy of blastic lesion negative for malignancy. Seen by Dr. Candelaria and started on palliative endocrine therapy w/ Anastrozole. Last seen in office by Dr. Candelaria on 01/05/17, plan was for repeat biopsy w/ IR and referral to Radiation Oncology for palliative radiation of T10 and T11, s/p eval by Dr. Wu on . Returns to ER now w/ ongoing pain despite home pain medications. States she called Dr. Candelaria's office and was instructed to go to the ER. On arrival, BP 119/71, HR 96, O2 sat 95% on RA, Afebrile. CBC unremarkable. Chemistry unremarkable. CXR with no acute findings. S/p multiple doses of Dilaudid IV in ER w/ minimal improvement. Dr. Candelaria consulted by ER physician, recommended admission for pain control and arrangements for biopsy. Review of Systems Except as stated in HPI: all other systems reviewed are Neg ROS: 14 point review of systems otherwise negative. Past Family Social History Past Medical History PMH: Breast CA s/p Lumpectomy/Partial Mastectomy/Chemo/Radiation Past Surgical History PAST SURGICAL HISTORY: Right Lumpectomy Allergies: Coded Allergies: Aspirin (Verified Allergy, Severe, Anaphylaxis, 01/29/17) Family History PAST FAMILY HISTORY: Reviewed. No h/o DM or CAD Social History PAST SOCIAL HISTORY: Negative for alcohol or drugs. Smokes 1/2ppd. Physical Exam Vital Signs Vital Signs Date Time Temp Pulse Resp B/P Pulse Ox O2 Delivery O2 Flow Rate FiO2 01/29/17 22:54 16 01/29/17 22:00 95 16 138/75 98 Room Air 01/29/17 18:52 98.1 96 20 119/71 95 Room Air Physical Exam PE: GENERAL: in no acute distress. HEENT: PERRLA, EOMI. No scleral icterus or conjunctival pallor. No lid lag or facial droop. CARDIOVASCULAR: Regular rate and rhythm. No obvious murmurs to auscultation. No chest tenderness to palpation. RESPIRATORY: No obvious rhonchi or wheezing. Clear to auscultation. Breath sounds equal bilaterally. GASTROINTESTINAL: Abdomen soft, non-tender, nondistended. BS normal. MUSCULOSKELETAL: Extremities without clubbing, cyanosis, or edema. No obvious deformities. Thoracic/Lumbar tenderness with movement/palpation. NEUROLOGICAL: Awake, alert and oriented x4. No focal neurologic deficits. Moving both upper and lower extremities spontaneously. Laboratory Laboratory Tests Test 01/29/17 22:50 White Blood Count 8.5 Red Blood Count 4.65 Hemoglobin 12.9 Hematocrit 38.2 Mean Corpuscular Volume 82.2 Mean Corpuscular Hemoglobin 27.8 Mean Corpuscular Hemoglobin 33.9 Concent Red Cell Distribution Width 15.4 Platelet Count 234 Mean Platelet Volume 9.6 Neutrophils (%) (Auto) 68.7 Lymphocytes (%) (Auto) 18.9 Monocytes (%) (Auto) 9.9 Eosinophils (%) (Auto) 1.9 Basophils (%) (Auto) 0.6 Neutrophils # (Auto) 5.8 Lymphocytes # (Auto) 1.6 Monocytes # (Auto) 0.8 Eosinophils # (Auto) 0.2 Basophils # (Auto) 0.1 CBC Comment DIFF FINAL Differential Comment Prothrombin Time 10.9 Prothromb Time International 1.0 Ratio Activated Partial 27.8 Thromboplast Time Sodium Level 139 Potassium Level 4.8 Chloride Level 104 Carbon Dioxide Level 27.8 Anion Gap 7 Blood Urea Nitrogen 11 Creatinine 0.65 Estimat Glomerular Filtration 95 Rate Random Glucose 84 Calcium Level 8.6 Total Bilirubin 0.2 Aspartate Amino Transf 40 (AST/SGOT) Alanine Aminotransferase 27 (ALT/SGPT) Alkaline Phosphatase 70 Total Protein 7.5 Albumin 3.4 Result Diagram: 01/29/17224901/29/172249 Assessment and Plan Problem List: (1) Metastatic breast cancer ICD Code: C50.919 Status: Acute (2) Intractable pain ICD Code: R52 Status: Acute (3) Tobacco use ICD Code: Z72.0 Status: Acute Assessment and Plan A/P: 1. Metastatic Breast CA: Dx 2012 in [facility], s/p lumpectomy/partial mastectomy /radiation, suspected metastatic lytic lesions however biopsy negative in [place] per patient. Recent admit 11/26-12/15/16 for same, s/p CT Guided Pelvic biopsy, pathology negative for malignancy. PET/CT 12/29/16 w/ widespread bony metastatic disease, particularly involving T10-T11, and suspected metastatic disease in pulmonary parenchyma anr RML. S/p eval by Dr. Candelaria and Dr. Carin Pradhan, plan for palliative endocrine therapy and palliative radiation to T10 -T11. Dr. Candelaria consulted by ER physician, plan to proceed w/ repeat biopsy by IR. 2. Intractable Pain: Secondary to above. Resume home MS IR and MS SR, add Morphine or Dilaudid IV as needed for pain control. 3. Tobacco Abuse: Counselled. Ativan/NicoDerm prn if needed. 4. DVT Prophylaxis: SCD/Teds. 5. Social work for d/c planning as needed. 6. Case discussed w/ ER physician at length. Shannon Vogel MD Jan 30, 2017 02:49
[2017-01-30] MEDS ORDERED: MORPHINE SULFATE 30 MG TAB PO PRN (04:00)
[2017-01-30 05:31] LABS: AUTOMATED NEUTROPHIL # 5.4 TH/MM3 (1.8-7.7); BASOPHIL % 0.5 % (0.0-2.0); EOSINOPHIL # 0.2 TH/MM3 (0-0.4); EOSINOPHIL % 2.5 % (0.0-4.0); HEMATOCRIT 36.7 % (35.0-46.0); HEMO FLAGS DIFF FINAL; LYMPH % 17.2 % (9.0-44.0); LYMPHOCYTE # 1.3 TH/MM3 (1.0-4.8); MEAN CELL VOLUME 82.7 FL (80.0-100.0); MEAN CORPUSCULAR HEMOGLOBIN 27.2 PG (27.0-34.0); MEAN CORPUSCULAR HGB CONC 32.9 % (32.0-36.0); MONO % 7.1 % (0.0-8.0); NEUT % 72.7 % (16.0-70.0); PLATELET COUNT 192 TH/MM3 (150-450); RED BLOOD COUNT 4.44 MIL/MM3 (4.00-5.30); RED CELL DISTRIBUTION WIDTH 15.2 % (11.6-17.2); WHITE BLOOD COUNT 7.4 TH/MM3 (4.0-11.0)
[2017-01-30 05:33] LABS: ALT (GPT) 24 U/L (10-53); ANION GAP 8 MEQ/L (5-15); AST (GOT) 21 U/L (15-37); BICARBONATE 28.5 MEQ/L (21.0-32.0); BLOOD UREA NITROGEN 11 MG/DL (7-18); CHLORIDE 105 MEQ/L (98-107); GLOMERULAR FILTRATION RATE 108 ML/MIN (>89); SODIUM (NA) 141 MEQ/L (136-145)
[2017-01-30 05:36] LABS: ALKALINE PHOSPHATASE 60 U/L (45-117); TOTAL BILIRUBIN ADULT 0.3 MG/DL (0.2-1.0)
[2017-01-30] MEDS: MORPHINE SULFATE 60 MG CONTROLLED RELEASE TAB PO SCH ×3 (06:14→21:46)
[2017-01-30] MEDS: SODIUM CHLORIDE 0.9% FLUSH 5 ML FLUSH FLUSH SCH ×2 (09:00→21:00)
[2017-01-30] MEDS ORDERED: HYDROmorphone HCL PF 1 MG/ML VIAL IV PUSH ONE ×2 (09:00)
[2017-01-30] MEDS ORDERED: diphenhydrAMINE HCL 25 MG CAP PO PRN ×2 (09:45→16:30)
[2017-01-30] MEDS ORDERED: NALOXONE HCL 0.4 MG/ML AMP IV PRN ×2 (09:45→16:30)
[2017-01-30] MEDS ORDERED: PCA - TOTAL MG DILAUDID DELIVERED PER SHIFT SCH (09:45)
[2017-01-30] MEDS ORDERED: LACTULOSE SYRUP 20 GM/30 ML CUP PO ONE (10:00)
--- NOTE | 2017-01-30 10:15 | HHI.PR ---
Subjective Remarks Follow up for intractable pain with metastatic breast cancer. The patient reports continued 10/10 pain at the lower thoracic spine, worse with any movement, requesting increased pain medications. She reports constipation, last BM 2 days ago, requesting Lactulose. She denies any nausea/vomiting. Tolerating oral intake. She otherwise denies any other medical complaints including no fevers/chills, chest pain, cough, shortness of breath, or abdominal pains. Objective Vitals Vital Signs Date Time Temp Pulse Resp B/P Pulse Ox O2 Delivery O2 Flow Rate FiO2 01/30/17 08:58 92/68 01/30/17 08:10 98.0 82 18 104/57 95 01/30/17 04:47 97.4 71 20 116/66 93 01/30/17 03:54 75 16 118/68 98 Room Air 01/29/17 22:54 16 01/29/17 22:00 95 16 138/75 98 Room Air 01/29/17 18:52 98.1 96 20 119/71 95 Room Air I/O 01/29/17 01/29/17 01/29/17 01/30/17 01/30/17 01/30/17 07:00 15:00 23:00 07:00 15:00 23:00 Intake Total 240 ml Balance 240 ml Intake Oral 240 ml Result Diagram: 01/30/17 0409 01/30/17 0409 Imaging Last Impressions Chest X-Ray 01/29/171 Signed Impressions: Service Date/Time: Sunday, January 29, 2017 22:41 - CONCLUSION: No new acute findings. Jag Dai MD Objective Remarks GENERAL: Well-nourished, well-developed pleasant middle aged [facility] female patient in [facility]. SKIN: Warm and dry. No rash. HEENT: Normocephalic. Atraumatic.Pupils equal and round. Mucous membranes pink and moist. NECK: Supple. Trachea midline. CARDIOVASCULAR: Regular rate and rhythm. S1, S2 noted. No murmur appreciated. RESPIRATORY: No accessory muscle use. Clear to auscultation. Breath sounds equal bilaterally. GASTROINTESTINAL: Abdomen soft, non-tender, nondistended. Normoactive bowel sounds x4. MUSCULOSKELETAL: No obvious deformities. Extremities without clubbing, cyanosis , or edema. Diffuse thoracic spine and paraspinous muscle tenderness to palpation, pain elicited with any movement. NEUROLOGICAL: Awake and alert. No obvious cranial nerve deficits. Motor grossly within normal limits. 5/5 muscle strength in bilateral upper and lower extremities. Normal speech. PSYCHIATRIC: Appropriate mood and affect; insight and judgment normal. Medications and IVs Current Medications Medications (Trade) Dose Ordered Sig/Dave Route Start Time Stop Time Status Last Admin (NS 1000 ml Inj) 1,000 ml @ 70 mls/hr [id number] IV 01/29/17 22:45 01/29/17 23:01 (NS Flush) 2 ml UNSCH PRN FLUSH 01/30/17 00:00 (NS Flush) 2 ml BID FLUSH 01/30/17 09:00 (Zofran Inj) 4 mg Q6H PRN IVP 01/30/17 00:00 (Dulcolax Supp) 10 mg DAILY PRN WA 01/30/17 00:00 (Tylenol) 650 mg Q6H PRN PO 01/30/17 00:00 (Oramorph Sr) 60 mg Q8HR PO 01/30/17 06:00 01/30/17 06:14 (Lindsey-Colace) 2 tab BID PO 01/30/17 09:00 (Narcan Inj) 0.4 mg UNSCH PRN IV 01/30/17 09:45 (Benadryl) 25 mg Q4H PRN PO 01/30/17 09:45 CORDAGE SALES REPRESENTATIVE Dosage Infused (Pha) 1 Q8HR .XX 01/30/17 09:45 (Arimidex) 1 mg DAILY PO 01/30/17 09:45 (Ativan) 1 mg Q6HR PRN PO 01/30/17 12:00 (Lactulose Liq) 30 ml ONCE ONCE PO 01/30/17 10:00 01/30/17 10:01 (Lactulose Liq) 30 ml DAILY PRN PO 01/31/17 09:00 (Habitrol 21 Mg Patch.24 Hr) 1 patch DAILY TD 01/30/17 10:00 Urinary Catheter: No Vascular Central Line Catheter: No A/P Problem List: (1) Metastatic breast cancer ICD Code: C50.919 Status: Acute (2) Intractable pain ICD Code: R52 Status: Acute (3) Tobacco use ICD Code: Z72.0 Status: Acute Assessment and Plan 56-year-old [facility] female with a PMH of Breast CA s/p Lumpectomy/Partial Mastectomy/Chemo/Radiation who presented the ER w/ complaints of severe back pain. Metastatic Breast CA: Dx 2013 in [facility], s/p lumpectomy/partial mastectomy/ radiation, suspected metastatic lytic lesions. Recent admit 11/26-12/15/16 for same, s/p CT Guided Pelvic biopsy, pathology negative for malignancy. PET/CT w/ widespread bony metastatic disease, particularly involving T10-T11, and suspected metastatic disease in pulmonary parenchyma and RML. S/p eval by Dr. Candelaria and Dr. Wu, recently started palliative endocrine therapy and palliative radiation to T10-T11. Dr. Candelaria consulted, plan to proceed w/ repeat biopsy by IR on Thursday 02/01. Intractable Thoracic Pain: secondary to above. Resumed home Oramorph 60mg po q8h dave. Pain not relieved with multiple doses of IV Dilaudid. Discussed with Dr. Candelaria, will start patient on IV Dilaudid CORDAGE SALES REPRESENTATIVE pump. Admit to inpatient. Tobacco Abuse: Counselled. Smokes 1 PPD. Nicotine patch. Constipation: likely secondary to pain meds. Give lactulose x1 now, start on Lindsey-Colace 2tabs po bid, and Lactulose daily prn. DVT Prophylaxis: SCD/Teds. Discussed with Dr. Diaz, Dr. Candelaria, [facility] Planning Admit to inpatient for intractable pain, requiring IV Dilaudid pain pump. Plan for biopsy on Thursday 02/01. Possible discharge after biopsy if pain controlled and off IV pain pump. Silvia Deluca PA-C Jan 30, 2017 10:15 am
[2017-01-30] MEDS: NICOTINE 21 MG/24 HR PATCH TD SCH (10:46)
[2017-01-30] MEDS: ANASTROZOLE 1 MG TAB PO SCH (10:47)
[2017-01-30] MEDS: DOCUSATE SODIUM 50 MG/SENNA 8.6 MG TAB PO SCH ×2 (10:47→21:00)
[2017-01-30] MEDS ORDERED: HYDROMORPHONE IV SCH (11:00)
[2017-01-30] MEDS ORDERED: SODIUM CHLORIDE 0.9% IV SCH (11:00)
--- NOTE | 2017-01-30 11:18 | MB ---
cc: LUPILLO LOUISE MD DATE OF CONSULTATION: 01/30/2017 DATE OF : 1960 REASON FOR CONSULTATION The patient with reported history of metastatic breast carcinoma with multiple bony metastases. Pathologic confirmation is pending at this time. CHIEF COMPLAINT Severe intractable back pain with radiation down her back and the back of her thighs. HISTORY OF PRESENT ILLNESS Ms. Jarrell is a very pleasant 56-year-old female who reportedly was diagnosed with metastatic breast carcinoma while she was living in [facility] and [facility]. She reports the primary tumor involved the right breast. She underwent partial mastectomy followed by radiation. She subsequently was found to have metastatic disease several months ago and despite various attempts to obtain a biopsy including an open biopsy per the patient's description they were not able to confirm the presence of metastatic disease in the bone. She had excruciating pain and was initiated on palliative systemic therapy; the patient reports her treatment consisted of Herceptin indicating positivity for HER-2. Unfortunately, she has no records available and specifically no pathology. She relocated to the [facility] in October of 2016 and presented to [facility] with severe excruciating pain. The patient has undergone various imaging studies including outpatient PET-CT scans as well as an inpatient CT-guided biopsy for one of the pelvic bony lesions. The pelvic biopsy was not diagnostic. In the interim she has been maintained on oral anastrozole as well as outpatient Zometa infusions. Her last Zometa infusion was in mid December. She was also evaluated by radiation oncology and was delivered one fraction of palliative radiation to the T10/T9 vertebral body which is where the bulk of her metastatic disease is. This treatment was delivered on 01/29/2017. She was admitted to the hospital due to intractable pain. PAST MEDICAL HISTORY 1. Reported history of breast carcinoma with metastases to the bone. 2. Ongoing tobaccoism. 3. Bony metastases. 4. Anxiety and depression. PAST SURGICAL HISTORY 1. Partial mastectomy on the right side. 2. Back surgery. FAMILY HISTORY Mother of complications of diabetes. Father of complications of leukemia. No known breast cancer diagnoses in the family. SOCIAL HISTORY The patient is originally from [place]. She has one daughter who is in her early 30s. The patient is an active smoker. 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 She is now disabled. She lives at home with her male partner, the two of them have been together for many years. ALLERGIES ASPIRIN AND NONSTEROIDAL. CURRENT INPATIENT MEDICATIONS 1. Anastrozole 1 mg once daily. 2. The patient is on a Dilaudid concentrate OPTICIAN APPRENTICE pump. 3. Long-acting morphine sulfate 60 mg p.o. q.6 hours. 4. Lorazepam 2 mg p.o. q.4 hours as needed for anxiety. (Lorazepam dosing was changed to 1 mg p.o. q.6.) 5. Zofran 4 mg IV q.6 hours as needed for nausea and vomiting. 6. Maintenance fluids. 7. Colace/Senna. 8. Diphenhydramine 25 mg p.o. q.6 hours as needed for itching. 9. Tylenol 650 mg p.o. q.6 hours as needed for fevers. REVIEW OF SYSTEMS A 13-point review of systems is obtained, the following are the pertinent positives: The patient reports fatigue, weakness, decreased appetite, excruciating pain. Denies headaches, blurry vision, difficulty swallowing, soreness in the throat. RESPIRATORY: Denies cough, hemoptysis, pleuritic chest pain. CARDIOVASCULAR: Denies angina-like chest pain, PND, orthopnea. GI: Denies nausea, vomiting, diarrhea, hematochezia, melena. She does report some constipation. UG: Denies dysuria, hematuria, urinary incontinence. MUSCULOSKELETAL: Severe midline back pain. PHYSICAL EXAMINATION VITAL SIGNS: Temperature 98 degrees Fahrenheit, heart rate 82 beats per minute, respiratory rate 18, blood pressure is 92/68, O2 sats 95% on room air. GENERAL APPEARANCE: Ms. Jarrell is a middle-aged female, she is laying in bed, she seemed to be resting comfortably before I walked in. HEENT: Head is atraumatic, normocephalic. Conjunctivae are non-pale. Sclerae are anicteric. EOMI. PERRLA. Oral exam - no pharyngeal erythema. NECK EXAM: No palpable cervical or supraclavicular lymphadenopathy. RESPIRATORY EXAM: Good air movement bilaterally. No added breath sounds. CARDIOVASCULAR EXAM: Regular rate and rhythm. S1, S2. No obvious murmurs, rubs or gallops. ABDOMINAL EXAM: Protuberant, soft, nontender, nondistended. No palpable organ enlargement. LOWER EXTREMITIES: No pretibial edema. No calf tenderness. TWISTER TENDER: No focal sensory or motor deficits. EXAMINATION OF THE BACK: Severe exquisite tenderness along the midline of the back involving the midportion. SKIN EXAMINATION: Unremarkable. LABORATORY FINDINGS Blood work dated 01/30/2017: WBC count 7.4, hemoglobin of 12.1 g/dL, hematocrit 36.7%, platelet count 192. Chemistries: Sodium 141, potassium 4, chloride 105, bicarb 28.5, BUN 11, creatinine 0.6, random glucose 97, calcium 8.2, total bilirubin 0.3, AST 21, ALT 24, alkaline phosphatase 60, albumin 3.3. Coags dated 01/29/2017: PT 10.9, INR 1, PTT 27.8. ASSESSMENT 1. Ms. Jarrell is a very pleasant 56-year-old female with a reported diagnosis of metastatic breast carcinoma. I do not have confirmation of this diagnosis because her diagnosis and previous treatment has all been delivered in [place] and [facility]. She has no records of the treatment rendered. But the patient tells me she was diagnosed with breast cancer in the right breast tissue, she was treated with surgical resection and has a partial mastectomy scar to prove it. She subsequently underwent radiation. She reportedly had been on palliative systemic therapy with Herceptin included in the treatment. She tells me she had HER-2 positive disease. At present what we have is radiographic evidence of metastatic disease involving multiple levels of the vertebral bodies. She has no soft tissue metastases based on the PET-CT scan findings from I believe November of 2016. She has been recommended CT-guided biopsy of one of the heavily involved vertebral bodies which has some soft tissue extension along the pedicle I believe at the level of T10. RECOMMENDATIONS 1. Suspected metastatic breast carcinoma: We need pathologic confirmation to proceed with disease-directed therapy. I have requested interventional radiology to biopsy the right pedicle of the T10 vertebral body to submit both soft tissue as well as bony metastases. We will submit the sample for pathologic review and immunohistochemical staining as well as HER-2 testing. In the interim she will resume palliative radiation starting Wednesday. I would like the radiation to resume after her biopsy. 2. Continue anastrozole 1 mg once daily for the time being. 3. Pain control has been a significant issue: I have therefore ordered a concentrated Dilaudid OPTICIAN APPRENTICE pump for her to try to manage her pain herself. The parameters of the Dilaudid OPTICIAN APPRENTICE will be no basal rate, no loading dose, 0.5 mg bolus dose, lockout of 20 minutes with a maximum dose of 4 mg every hour. I will adjust the Dilaudid OPTICIAN APPRENTICE dosing as needed. She will continue her long-term basal dosing of morphine sulfate in the interim. I will see her in followup tomorrow. MD KATHARINE Recio/MARY /9:42 AM /10:33 AM
[2017-01-30] MEDS: SODIUM CHLOR 0.9% 1000 ML INJ 1,000 ML IV SCH (13:03)
[2017-01-30] MEDS: HYDROmorphone HCL PCA 6 MG/30 ML IV SCH (16:56)
--- NOTE | 2017-01-30 18:16 | EKG ---
Date Performed: 01/29/2017 Time Performed: 22:48:58 PTAGE: 56 years EKG: Sinus rhythm INDETERMINATE AXIS INCOMPLETE RIGHT BUNDLE BRANCH BLOCK ABNORMAL ECG NO PREVIOUS TRACING DOCTOR: Anoop Romero Interpretating Date/Time 01/30/2017 18:12:57
[2017-01-30] MEDS: LORazepam 2 MG TAB PO PRN (20:29)
[2017-01-30] MEDS: PCA - TOTAL MG DILAUDID DELIVERED PER SHIFT OTHER SCH (21:45)
[2017-01-31] VITALS: BP 112/72; PULSE 79; RESP 17; TEMP 96.6; O2SAT 96
[2017-01-31] MEDS: LORazepam 2 MG TAB PO PRN (02:39)
[2017-01-31] MEDS ORDERED: ZOLPIDEM TARTRATE 5 MG TAB PO PRN (02:45)
[2017-01-31] MEDS: SODIUM CHLOR 0.9% 1000 ML INJ 1,000 ML IV SCH ×2 (03:21→21:06)
[2017-01-31] MEDS ORDERED: HYDROmorphone HCL PF 1 MG/ML VIAL IV PUSH ONE (03:30)
[2017-01-31 04:00] VITALS: BP 138/81; PULSE 83; RESP 18; TEMP 96.6; O2SAT 96
[2017-01-31] MEDS: MORPHINE SULFATE 60 MG CONTROLLED RELEASE TAB PO SCH ×3 (05:31→21:05)
[2017-01-31] MEDS: PCA - TOTAL MG DILAUDID DELIVERED PER SHIFT OTHER SCH ×3 (05:33→21:06)
[2017-01-31 08:00] VITALS: BP 107/81; PULSE 76; RESP 18; TEMP 97.4; O2SAT 95
[2017-01-31] MEDS ORDERED: LACTULOSE SYRUP 20 GM/30 ML CUP PO PRN (09:00)
[2017-01-31] MEDS: SODIUM CHLORIDE 0.9% FLUSH 5 ML FLUSH FLUSH SCH ×2 (09:00→21:00)
[2017-01-31] MEDS: ANASTROZOLE 1 MG TAB PO SCH (09:35)
[2017-01-31] MEDS: NICOTINE 21 MG/24 HR PATCH TD SCH (09:35)
[2017-01-31] MEDS: DOCUSATE SODIUM 50 MG/SENNA 8.6 MG TAB PO SCH ×2 (09:35→21:03)
[2017-01-31 12:00] VITALS: BP 97/56; PULSE 78; RESP 18; TEMP 98.1; O2SAT 98
--- NOTE | 2017-01-31 13:01 | HHI.PR ---
Subjective Remarks Follow-up for breast cancer Pain is more controlled after CIVIL DEFENSE DIRECTOR pump, also complaining of bilateral thigh pain yesterday but resolved spontaneously, none today, no swelling. No shortness of breath. Objective Vitals Vital Signs Date Time Temp Pulse Resp B/P Pulse Ox O2 Delivery O2 Flow Rate FiO2 01/31/17 12:00 98.1 78 18 97/56 98 01/31/17 08:00 97.4 76 18 107/81 95 01/31/17 06:38 19 01/31/17 05:33 20 01/31/17 04:00 96.6 83 18 138/81 96 01/31/17 00:00 96.6 79 17 112/72 96 01/30/17 21:45 20 01/30/17 21:00 20 01/30/17 20:00 97.5 77 18 95/66 96 Automatic Cuff 01/30/17 16:56 18 01/30/17 16:00 97.6 70 18 99/71 96 I/O 01/30/17 01/30/17 01/30/17 01/31/17 01/31/17 01/31/17 07:00 15:00 23:00 07:00 15:00 23:00 Intake Total 240 ml 711 ml 1007 ml Balance 240 ml 711 ml 1007 ml Intake Oral 240 ml 480 ml 480 ml IV Total 231 ml 527 ml # Voids 5 5 # Bowel Movements 1 Result Diagram: 01/30/1740801/30/17408 Objective Remarks Not in distress, well-nourished, looks stated age PERRL, pink conjunctiva without injection, anicteric Normal rate and regular rhythm, no murmurs gallops or rubs appreciated. Clear to auscultation and symmetric bilaterally, normal respiratory effort. Soft nontender Trace lower extremity edema, no tenderness, swelling, erythema. No rash of generalized distribution. AAO x3, no cranial nerve deficits, moves all 4 extremities, no focal neurologic deficits Normal mood, appropriate affect A/P Problem List: (1) Metastatic breast cancer ICD Code: C50.919 Status: Acute (2) Intractable pain ICD Code: R52 Status: Acute (3) Tobacco use ICD Code: Z72.0 Status: Acute Assessment and Plan 56-year-old [facility] female with a PMH of Breast CA s/p Lumpectomy/Partial Mastectomy/Chemo/Radiation who presented the ER w/ complaints of severe back pain. Metastatic Breast CA: Dx 2013 in [facility], s/p lumpectomy/partial mastectomy/ radiation, suspected metastatic lytic lesions. Recent admit 11/26-12/15/16 for same, s/p CT Guided Pelvic biopsy, pathology negative for malignancy. PET/CT w/ widespread bony metastatic disease, particularly involving T10-T11, and suspected metastatic disease in pulmonary parenchyma and RML. S/p eval by Dr. Candelaria and Dr. Wu, recently started palliative endocrine therapy and palliative radiation to T10-T11. Dr. Candelaria consulted,, biopsy by IR tomorrow. Intractable Thoracic Pain: secondary to above. Resumed home Oramorph 60mg po q8h cynthia. Continue Dilaudid via CIVIL DEFENSE DIRECTOR pump. Tobacco Abuse: Counselled. Smokes 1 PPD. Nicotine patch. Constipation: likely secondary to pain meds. Give lactulose x1 now, start on Lindsey-Colace 2tabs po bid, and Lactulose daily prn. Bilateral thigh pain-no swelling, no redness, if persists, check check ultrasound to rule out DVT. DVT Prophylaxis: SCD/Teds. Start Lovenox after biopsy Maury Diaz MD Jan 31, 2017 13:01
[2017-01-31 16:00] VITALS: BP 102/75; PULSE 88; RESP 18; TEMP 97.3; O2SAT 95
[2017-01-31] MEDS: HYDROmorphone HCL PCA 6 MG/30 ML IV SCH (18:33)
[2017-01-31 20:00] VITALS: BP 96/56; PULSE 79; RESP 19; TEMP 96.6; O2SAT 98
[2017-02-01] VITALS: BP 108/68; PULSE 85; RESP 18; TEMP 96; O2SAT 98
[2017-02-01 04:00] VITALS: BP 102/66; PULSE 78; RESP 18; TEMP 97.4; O2SAT 99
[2017-02-01] MEDS: MORPHINE SULFATE 60 MG CONTROLLED RELEASE TAB PO SCH ×3 (05:37→22:53)
[2017-02-01] MEDS: PCA - TOTAL MG DILAUDID DELIVERED PER SHIFT OTHER SCH ×3 (05:40→22:50)
[2017-02-01 08:54] VITALS: BP 98/64; PULSE 84; RESP 16; TEMP 96.5; O2SAT 97
[2017-02-01] MEDS: NICOTINE 21 MG/24 HR PATCH TD SCH (09:27)
[2017-02-01] MEDS: ANASTROZOLE 1 MG TAB PO SCH (09:28)
[2017-02-01] MEDS: SODIUM CHLORIDE 0.9% FLUSH 5 ML FLUSH FLUSH SCH ×2 (09:31→22:54)
[2017-02-01] MEDS: SODIUM CHLOR 0.9% 1000 ML INJ 1,000 ML IV SCH ×2 (09:40→23:00)
[2017-02-01] MEDS: DOCUSATE SODIUM 50 MG/SENNA 8.6 MG TAB PO SCH ×2 (09:40→22:53)
--- NOTE | 2017-02-01 12:46 | HHI.PR ---
Subjective Remarks Follow-up for breast cancer Pain is more controlled with AIRLINE COUNTER AGENT pump, reports no pain today. Yesterday was having bilateral thigh pain, which has resolved. No shortness of breath. Plan for Bx today- asking to go home after biopsy Objective Vitals Vital Signs Date Time Temp Pulse Resp B/P Pulse Ox O2 Delivery O2 Flow Rate FiO2 02/01/17 08:54 96.5 84 16 98/64 97 02/01/17 05:40 16 02/01/17 04:00 97.4 78 18 102/66 99 02/01/17 00:00 96.0 85 18 108/68 98 01/31/17 21:06 16 01/31/17 20:00 96.6 79 19 96/56 98 01/31/17 18:33 18 01/31/17 18:00 18 01/31/17 16:00 97.3 88 18 102/75 95 I/O 01/31/17 01/31/17 01/31/17 02/01/17 02/01/17 02/01/17 07:00 15:00 23:00 07:00 15:00 23:00 Intake Total 1007 ml 601 ml 960 ml 480 ml Balance 1007 ml 601 ml 960 ml 480 ml Intake Oral 480 ml 480 ml 960 ml 480 ml IV Total 527 ml 121 ml # Voids 5 1 5 5 # Bowel Movements 1 Result Diagram: 01/30/1740801/30/17408 Objective Remarks Not in distress, well-nourished, looks stated age EOMI, pink conjunctiva without injection, anicteric Normal rate and regular rhythm, no murmurs gallops or rubs appreciated. Clear to auscultation and symmetric bilaterally, normal respiratory effort. Soft nontender Trace lower extremity edema, no tenderness, swelling, erythema. No rash of generalized distribution. AAO x3, moves all 4 extremities, no focal neurologic deficits Normal mood, appropriate affect A/P Problem List: (1) Metastatic breast cancer ICD Code: C50.919 Status: Acute (2) Intractable pain ICD Code: R52 Status: Acute (3) Tobacco use ICD Code: Z72.0 Status: Acute Assessment and Plan 56-year-old [facility] female with a PMH of Breast CA s/p Lumpectomy/Partial Mastectomy/Chemo/Radiation who presented the ER w/ complaints of severe back pain. Metastatic Breast CA: Dx 2013 in [facility], s/p lumpectomy/partial mastectomy/ radiation, suspected metastatic lytic lesions. Recent admit 11/26-12/15/16 for same, s/p CT Guided Pelvic biopsy, pathology negative for malignancy. PET/CT with widespread bony metastatic disease, particularly involving T10-T11, and suspected metastatic disease in pulmonary parenchyma and RML. S/p eval by Dr. Candelaria and Dr. Wu, recently started palliative endocrine therapy and palliative radiation to T10-T11. Dr. Candelaria consulted, Plan for biopsy by IR today. Intractable Thoracic Pain: secondary to above. Continue home Oramorph 60mg po q8h cynthia. Continue Dilaudid via AIRLINE COUNTER AGENT pump. Tobacco Abuse: Counselled. Smokes 1 PPD. Nicotine patch. Constipation: resolved- likely secondary to pain meds. Continue on Lindsey-Colace 2tabs po bid, and Lactulose daily prn. Bilateral thigh pain-no swelling, no redness, resolved DVT Prophylaxis: SCD/Teds. plan to start Lovenox after biopsy Discussed with patient, family member at bedside and Carmen Gutierrez Feb 01, 2017 12:45
[2017-02-01 12:52] VITALS: BP 95/69; PULSE 67; RESP 16; TEMP 97.1; O2SAT 99
[2017-02-01 16:48] VITALS: BP 97/55; PULSE 84; RESP 16; TEMP 96; O2SAT 95
[2017-02-01 20:00] VITALS: BP 98/56; PULSE 74; RESP 16; TEMP 97; O2SAT 98
[2017-02-01] MEDS: HYDROmorphone HCL PCA 6 MG/30 ML IV SCH (22:56)
[2017-02-01] MEDS: LORazepam 2 MG TAB PO PRN (23:49)
[2017-02-02] VITALS (11 sets, daily range): BP systolic 83–115; BP diastolic 50–71; PULSE 68–79; RESP 16–20; TEMP 96.8–97.8; O2SAT 95–99
[2017-02-02] MEDS: MORPHINE SULFATE 60 MG CONTROLLED RELEASE TAB PO SCH ×3 (05:45→12:34)
[2017-02-02] MEDS: PCA - TOTAL MG DILAUDID DELIVERED PER SHIFT OTHER SCH (05:46)
[2017-02-02] MEDS ORDERED: LIDOCAINE 1%/EPINEPHrine 1:100,000 SOLN 20 ML VIAL ONE (07:40)
[2017-02-02] MEDS ORDERED: SODIUM BICARBONATE 8.4% INJ 50 ML ONE (07:40)
--- NOTE | 2017-02-02 07:42 | HHI.PR ---
Subjective Remarks Awaiting to go for biposy today. She is NPO. Denies having pain. No n/v/d/c. Says she would like to go home after biopsy. Objective Vitals Vital Signs Date Time Temp Pulse Resp B/P Pulse Ox O2 Delivery O2 Flow Rate FiO2 02/02/17 05:46 16 02/02/17 04:00 97.2 79 16 103/55 96 02/02/17 00:00 97.4 76 16 115/65 97 02/01/17 23:26 17 02/01/17 22:56 18 02/01/17 22:50 18 02/01/17 20:00 97.0 74 16 98/56 98 02/01/17 16:48 96.0 84 16 97/55 95 02/01/17 15:21 16 02/01/17 14:07 16 02/01/17 12:52 97.1 67 16 95/69 99 02/01/17 08:54 96.5 84 16 98/64 97 I/O 02/01/17 02/01/17 02/01/17 02/02/17 02/02/17 02/02/17 07:00 15:00 23:00 07:00 15:00 23:00 Intake Total 480 ml 480 ml 1866 ml 560 ml Balance 480 ml 480 ml 1866 ml 560 ml Intake Oral 480 ml 480 ml 480 ml IV Total 1386 ml 560 ml # Voids 5 3 2 1 # Bowel Movements 1 Result Diagram: 01/30/17 0409 01/30/17 0409 Imaging Last Impressions Chest X-Ray 01/29/17 2241 Signed Impressions: Service Date/Time: Sunday, January 29, 2017 22:41 - CONCLUSION: No new acute findings. Jag Dai MD Objective Remarks GENERAL: 56 yo female, well nourished, well developed patient, doesn't appear in acute distress. SKIN: Pale. Warm and dry. HEAD: Atraumatic. Normocephalic. EYES: Pupils equal and round. No scleral icterus. No injection or drainage. ENT: No nasal bleeding or discharge. Mucous membranes pink and moist. NECK: Trachea midline. No JVD. CARDIOVASCULAR: Regular rate and rhythm. RESPIRATORY: No accessory muscle use. Clear to auscultation. Breath sounds equal bilaterally. GASTROINTESTINAL: Abdomen soft, non-tender, nondistended. Hepatic and splenic margins not palpable. MUSCULOSKELETAL: Extremities without clubbing, cyanosis, or edema. No obvious deformities. NEUROLOGICAL: Awake and alert. No obvious cranial nerve deficits. Motor grossly within normal limits. Five out of 5 muscle strength in the arms and legs. Normal speech. PSYCHIATRIC: Appropriate mood and affect; insight and judgment normal. A/P Problem List: (1) Metastatic breast cancer ICD Code: C50.919 Status: Acute (2) Intractable pain ICD Code: R52 Status: Acute (3) Tobacco use ICD Code: Z72.0 Status: Acute Assessment and Plan 56-year-old [facility] female with a PMH of Breast CA s/p Lumpectomy/Partial Mastectomy/Chemo/Radiation who presented the ER w/ complaints of severe back pain. Metastatic Breast CA: Dx 2012 in [facility], s/p lumpectomy/partial mastectomy/ radiation, suspected metastatic lytic lesions. Recent admit 11/26-12/15/16 for same, s/p CT Guided Pelvic biopsy, pathology negative for malignancy. PET/CT with widespread bony metastatic disease, particularly involving T10-T11, and suspected metastatic disease in pulmonary parenchyma and RML. S/p eval by Dr. Candelaria and Dr. Wu, recently started palliative endocrine therapy and palliative radiation to T10-T11. Dr. Candelaria consulted. Plan for biopsy by IR today. Intractable Thoracic Pain: secondary to above. Continue home Oramorph 60mg po q8h cynthia. 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 Tobacco Abuse: Counselled. Smokes 1 PPD. Nicotine patch. Constipation: resolved- likely secondary to pain meds. Continue on Lindsey-Colace 2tabs po bid, and Lactulose daily prn. Bilateral thigh pain-no swelling, no redness, resolved DVT Prophylaxis: SCD/Teds. plan to start Lovenox after biopsy Might be discharge home after biopsy today if diagnostic tissue is obtained. Discussed with patient, nurse, Dr Candelaria hem/onc. Tanvi Sen MD Feb 02, 2017 07:42
--- NOTE | 2017-02-02 07:45 | HHI.DCPOC ---
Discharge Care Plan Goals to Promote Your Health * To prevent worsening of your condition and complications * To maintain your health at the optimal level Directions to Meet Your Goals Take your medications as prescribed Follow your dietary instruction Follow activity as directed Keep your appointments as scheduled Take your immunizations and boosters as scheduled If your symptoms worsen call your PCP, if no PCP go to Urgent Care Center or Emergency Room Smoking is Dangerous to Your Health. Avoid second hand smoke Call the 24-hour hour crisis hotline for domestic abuse at Tanvi Sen MD Feb 02, 2017 07:44
--- NOTE | 2017-02-02 07:45 | HHI.DS ---
Discharge Summary Admission Date Jan 30, 2017 at 09:50 Discharge Date: Feb 02, 2017 Admitting Diagnosis metastatic breast CA. Intractable pain. (1) Metastatic breast cancer ICD Code: C50.919 Diagnosis: Principal (2) Intractable pain ICD Code: R52 Diagnosis: Principal (3) Tobacco use ICD Code: Z72.0 Diagnosis: Secondary Procedures none Brief History - From Admission This is a 56-year-old [facility] female with a PMH of Breast CA s/p Lumpectomy/ Partial Mastectomy/Chemo/Radiation who presented the ER w/ complaints of severe back pain. Initially diagnosed in 2012, previously underwent treatment in [facility], later had treatment in [facility]. Approx 6 months ago pt developed severe back pain and was evaluated while in [facility], noted to have lytic lesions to lumbar spine, underwent biopsy however results inconclusive per report. Pain progressively worse since then. Admitted here 11/26-12/15/16 for intractable pain, found to have osteolytic lesion s/p biopsy of blastic lesion negative for malignancy. Seen by Dr. Candelaria and started on palliative endocrine therapy w/ Anastrozole. Last seen in office by Dr. Candelaria on 01/05/17, plan was for repeat biopsy w/ IR and referral to Radiation Oncology for palliative radiation of T10 and T11, s/p eval by Dr. Wu on . Returns to ER now w/ ongoing pain despite home pain medications. States she called Dr. Candelaria's office and was instructed to go to the ER. On arrival, BP 119/71, HR 96, O2 sat 95% on RA, Afebrile. CBC unremarkable. Chemistry unremarkable. CXR with no acute findings. S/p multiple doses of Dilaudid IV in ER w/ minimal improvement. Dr. Candelaria consulted by ER physician, recommended admission for pain control and arrangements for biopsy. CBC/BMP: 01/30/17 0409 01/30/17 0409 Imaging Last Impressions Bone Biopsy CT 02/02/17 0000 Signed Impressions: Service Date/Time: Thursday, February 02, 2017 08:46 - CONCLUSION: Uncomplicated CT guided biopsy of the right T10 pedicle and transverse process lytic lesion. Jag Cagle MD Chest X-Ray 01/29/17 6101 Signed Impressions: Service Date/Time: Sunday, January 29, 2017 22:41 - CONCLUSION: No new acute findings. Jag Dai MD PE at Discharge GENERAL: 56 yo female, well nourished, well developed patient, doesn't appear in acute distress. SKIN: Pale. Warm and dry. HEAD: Atraumatic. Normocephalic. EYES: Pupils equal and round. No scleral icterus. No injection or drainage. ENT: No nasal bleeding or discharge. Mucous membranes pink and moist. NECK: Trachea midline. No JVD. CARDIOVASCULAR: Regular rate and rhythm. RESPIRATORY: No accessory muscle use. Clear to auscultation. Breath sounds equal bilaterally. GASTROINTESTINAL: Abdomen soft, non-tender, nondistended. Hepatic and splenic margins not palpable. MUSCULOSKELETAL: Extremities without clubbing, cyanosis, or edema. No obvious deformities. NEUROLOGICAL: Awake and alert. No obvious cranial nerve deficits. Motor grossly within normal limits. Five out of 5 muscle strength in the arms and legs. Normal speech. PSYCHIATRIC: Appropriate mood and affect; insight and judgment normal. Hospital Course 56-year-old [facility] female with a PMH of Breast CA s/p Lumpectomy/Partial Mastectomy/Chemo/Radiation who presented the ER w/ complaints of severe back pain. Metastatic Breast CA: Dx 2013 in [facility], s/p lumpectomy/partial mastectomy/ radiation, suspected metastatic lytic lesions. Recent admit 11/26-12/15/16 for same, s/p CT Guided Pelvic biopsy, pathology negative for malignancy. PET/CT with widespread bony metastatic disease, particularly involving T10-T11, and suspected metastatic disease in pulmonary parenchyma and RML. S/p eval by Dr. Candelaria and Dr. Wu, recently started palliative endocrine therapy and palliative radiation to T10-T11. Dr. Candelaria consulted. Plan for biopsy by IR today. Intractable Thoracic Pain: secondary to above. Continue home Oramorph 60mg po q8h cynthia. 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 Tobacco Abuse: Counselled. Smokes 1 PPD. Nicotine patch. Constipation: resolved- likely secondary to pain meds. Continue on Lindsey-Colace 2tabs po bid, and Lactulose daily prn. Bilateral thigh pain-no swelling, no redness, resolved DVT Prophylaxis: SCD/Teds. plan to start Lovenox after biopsy Discussed with patient, nurse, Dr Candelaria hem/onc. Patient improved, had biopsy, cleared for DC after biopsy. She was discharged in fairly good condition , to follow up as OP with PCP and consultants. Pt Condition on Discharge: Fair Discharge Disposition: Discharge Home Discharge Time: <= 30 minutes Discharge Instructions DIET: Follow Instructions for: As Tolerated, No Restrictions Activities you can perform: Regular-No Restrictions Follow up Referrals: Oncology - 1 Week with Wang Candelaria MD PCP Follow-up - 3-5 Days Continued Medications: Cholecalciferol (Vitamin D3) 1,000 Unit Tab 1000 UNITS PO DAILY #30 TAB Ibuprofen (Ibuprofen) 800 Mg Tab 800 MG PO Q8H PRN Pain/Inflammation #30 TAB Lorazepam (Ativan) 2 Mg Tab 2 MG PO Q4H PRN anxiety #30 TAB Morphine ER (Morphine ER) 60 Mg Tab 60 MG PO Q8HR #90 TAB Morphine IR (Morphine IR) 30 Mg Tab 30 MG PO Q6HR #120 TAB Sennosides-Docusate Sodium (Senna Plus 8.6-50 mg) 1 Tab Tab 2 TAB PO BID #60 TAB ([Anastrozole]) 1 MG TAB 1 MG PO DAILY #30 TAB Tanvi Sen MD Feb 02, 2017 07:45
[2017-02-02] MEDS ORDERED: fentaNYL CITRATE 250 MCG/5 ML AMP ONE ×2 (08:36→08:58)
[2017-02-02] MEDS ORDERED: MIDAZOLAM HCL 5 MG/5 ML VIAL ONE ×2 (08:37→08:57)
[2017-02-02] MEDS ORDERED: oxyCODONE/ACETAMINOPHEN 5 MG/325 MG TAB PO PRN (10:00)
[2017-02-02] MEDS: DOCUSATE SODIUM 50 MG/SENNA 8.6 MG TAB PO SCH (11:56)
[2017-02-02] MEDS: NICOTINE 21 MG/24 HR PATCH TD SCH (11:58)
[2017-02-02] MEDS: ANASTROZOLE 1 MG TAB PO SCH (12:01)
[2017-02-02] MEDS: SODIUM CHLORIDE 0.9% FLUSH 5 ML FLUSH FLUSH SCH (12:01)
--- NOTE | 2017-02-02 12:30 | RADRPT ---
EXAM DATE/TIME: 02/02/2017 08:46 [place] COMPARISON: CT THORAX W/O CONTRAST, November 26, 2016, 20:19. CT NEEDLE BIOPSY BONE DEEP, December 01, 2016, 10:5 0. INDICATIONS : T10 bone lesion. SEDATION TIME: 30 minutes BIOPSY SITE: Right T10 MEDICATION(S): 1.) 6 mg midazolam (Versed) IV 2.) 300 mcg fentanyl (Sublimaze) IV DEVICE(S): 1.) 17 gauge Coaxial 6cm 2.) 18 gauge Temno core biopsy needle 15 cm MEDICAL HISTORY : Carcinoma, breast. Metastatic, bone. SURGICAL HISTORY : Mastectomy, right. ENCOUNTER: Initial ACUITY: 1 day PAIN SCORE: 0/10 LOCATION: Right back. A total of four core specimen(s) were obtained and sent to the laboratory for pathologic evaluation. PROCEDURE: 1. CT guided bone deep biopsy. 2. Conscious sedation with continuous EKG and oximetry monitoring. Prior to the procedure informed consent was obtained. The patient's prior CT examinations were review ed. Using automated exposure control and adjustment of the mA and/or kV according to patient size, radiat ion dose was kept as low as reasonably achievable to obtain optimal diagnostic quality images. The site was prepped in a sterile fashion. Full sterile technique was used, including cap, mask, nayla rile gloves and gown and a large sterile sheet. Hand hygiene and 2% chlorhexidine and/or betadine/al cohol prep was utilized per protocol for cutaneous antisepsis. The skin and subcutaneous tissues wer e infiltrated with local anesthetic solution. With CT guidance the lytic lesion within the right T10 transverse process and pedicle was localized. Biopsy was performed using the prescribed needle as above. Adequate hemostasis was obtained with com pression at the puncture site. Follow-up CT scan reveals no hemorrhage or acute abnormality. The patient tolerated the procedure well and there were no complications. The patient was returned to the Radiology Outpatient Unit in stable condition. CONCLUSION: Uncomplicated CT guided biopsy of the right T10 pedicle and transverse process lytic lesion. Jag Cagle MD on February 02, 2017 at 12:11 Board Certified Radiologist. This report was verified electronically.
== END 2017-02-02 14:34 | disposition home or self-care (01) | DRG 479 ==
LOC: NEPA 18:49 → NEDA 01-30 00:02 → NEDH 01-30 03:59 → NEPHCDU 01-30 04:43 → OBSVTOIN 01-30 09:50 → HOCA 01-30 12:08
PROVIDERS: ADMIT Hospitalist; ATTEND Hospitalist
PROC: 0PB43ZX Excision of Thoracic Vertebra, Percutaneous Approach, Diagnostic (ICD-10-PCS; principal; 2017-02-02)
DX: C79.51 Secondary malignant neoplasm of bone (principal); I10 Essential (primary) hypertension; G89.3 Neoplasm related pain (acute) (chronic); F17.210 Nicotine dependence, cigarettes, uncomplicated; K59.03 Drug induced constipation; T40.2X5A Adverse effect of other opioids, initial encounter; F41.9 Anxiety disorder, unspecified; F32.9 Major depressive disorder, single episode, unspecified; Z85.3 Personal history of malignant neoplasm of breast
CPT/HCPCS: 20225; 71010; 76937; 77012; 77280; 77295; 77300; 77334; 77387; 77412; 80053; 85025; 85610; 85730; 88307; 88311; 88341; 88342; 88361; 93005; 96361; 96374; 96375; 96376; 99152; 99153; J1170; J2250; J2405; J3010; J7030

== ENCOUNTER 2017-02-05 15:55 | Inpatient (IN) | payer OTHER ==
[~2017-02-05 15:55] MED LIST changes: -POLY17S PO
[2017-02-05] MEDS ORDERED: ONDANSETRON HCL 4 MG/2 ML VIAL IVP ONE (16:00)
[2017-02-05] MEDS ORDERED: SODIUM CHLOR 0.9% 1000 ML INJ 1,000 ML IV SCH (16:00)
[2017-02-05] MEDS ORDERED: SODIUM CHLORIDE 0.9% FLUSH 5 ML FLUSH IVF PRN (16:00)
[2017-02-05] MEDS ORDERED: MORPHINE SULFATE 4 MG/ML INJ IV PUSH ONE (16:15)
--- NOTE | 2017-02-05 16:36 | PD ---
HPI Chief Complaint: nausea and vomiting Time Seen by Provider: 16:07 Travel History International Travel<30 days: No Contact w/Intl Traveler<30days: No Traveled to known affect area: No History of Present Illness HPI 56-year-old female with history of breast cancer with metastases to the spine currently on radiation therapy with Dr. Corral, presents to the ER today because she was at radiation therapy today when she started vomiting multiple times, her states that she has been vomiting since last night multiple times, not keeping much down, not able to keep her pain meds down. She denies any abdominal pain, fevers, chest pains, shortness of breath, headaches, or other symptoms. Dr. Corral had sent the patient in for further evaluation and treatment in the ER. He has also requested a CT of the brain to rule out brain metastases. Patient currently states that her back pain is a 8 out of 10. She is reporting no incontinence or difficulty walking. As a matter of fact, patient is walking back and forth out of her room in the ER. Modifying Factors: None Associated Signs & Symptoms: Nausea, vomiting, back pain Risk Factors: Breast cancer with spine metastases PFSH Past Medical History Cancer: Yes (breast, bone) Cardiovascular Problems: Yes Chemotherapy: No Endocrine: No Genitourinary: No Hypertension: Yes Immune Disorder: No Musculoskeletal: No Neurologic: No Psychiatric: No Reproductive: No Respiratory: No Radiation Therapy: Yes Past Surgical History AICD: No Arteriovenous Shunt: No Insulin Pump: No Joint Replacement: No Pacemaker: No Other Surgery: Yes (right lumpectomy) Social History Alcohol Use: No Tobacco Use: Yes (10 CIG PER TODAY) Substance Use: No Allergies-Medications (Allergen,Severity, Reaction): Coded Allergies: Aspirin (Verified Allergy, Severe, Anaphylaxis, 02/05/17) Reported Meds & Prescriptions Reported Meds & Active Scripts Active Ativan (Lorazepam) 2 Mg Tab 2 Mg PO Q4H PRN Senna Plus 8.6-50 mg (Sennosides-Docusate Sodium) 1 Tab Tab 2 Tab PO BID Morphine ER (Morphine Sulfate) 60 Mg Tab 60 Mg PO Q8HR Morphine IR (Morphine Sulfate) 30 Mg Tab 30 Mg PO Q6HR Vitamin D3 (Cholecalciferol) 1,000 Unit Tab 1,000 Units PO DAILY [Anastrozole] 1 MG Tab 1 Mg PO DAILY Ibuprofen 800 Mg Tab 800 Mg PO Q8H PRN Review of Systems Except as stated in HPI: all other systems reviewed are Neg Physical Exam Narrative GENERAL: Well-nourished, well-developed middle aged Persian female patient in moderate distress. Awake and oriented 3. SKIN: Warm and dry. HEAD: Atraumatic. Normocephalic. EYES: Pupils equal and round. No scleral icterus. No injection or drainage. ENT: No nasal bleeding or discharge. Mucous membranes pink and moist. NECK: Trachea midline. No JVD. CARDIOVASCULAR: Regular rate and rhythm. No murmur appreciated. RESPIRATORY: No accessory muscle use. Clear to auscultation. Breath sounds equal bilaterally. GASTROINTESTINAL: Abdomen soft, non-tender, nondistended. Hepatic and splenic margins not palpable. MUSCULOSKELETAL: No obvious deformities. No clubbing. No cyanosis. No edema. NEUROLOGICAL: Awake and alert. No obvious cranial nerve deficits. Motor grossly within normal limits. Normal speech. PSYCHIATRIC: Appropriate mood and affect; insight and judgment normal. Data Data Last Documented VS Vital Signs Date Time Temp Pulse Resp B/P Pulse Ox O2 Delivery O2 Flow Rate FiO2 02/05/17 19:02 63 18 136/71 98 Room Air 02/05/17 16:40 98.0 Orders Complete Blood Count With Diff (02/05/17 16:00) Comprehensive Metabolic Panel (02/05/17 16:00) Lipase (02/05/17 16:00) Urinalysis - C+S If Indicated (02/05/17 16:00) Iv Access Insert/Monitor (02/05/17 16:00) Ecg Monitoring (02/05/17 16:00) Oximetry (02/05/17 16:00) Ondansetron Inj (Zofran Inj) (02/05/17 16:00) Sodium Chlor 0.9% 1000 Ml Inj (Ns 1000 M (02/05/17 16:00) Sodium Chloride 0.9% Flush (Ns Flush) (02/05/17 16:00) Electrocardiogram (02/05/17 16:00) Morphine Inj (Morphine Inj) (02/05/17 16:15) Ct Abd/Pel W Iv Contrast(Rout) (02/05/17 16:36) Hydromorphone Pf Inj (Dilaudid Pf Inj) (02/05/17 17:00) Ct Brain W & W/O Iv Contrast (02/05/17 16:00) Hydromorphone Pf Inj (Dilaudid Pf Inj) (02/05/17 18:00) Iohexol 350 Inj (Omnipaque 350 Inj) (02/05/17 18:04) Dexamethasone Inj (Decadron Inj) (02/06/17 00:00) Pantoprazole Inj (Protonix Inj) (02/05/17 19:00) Coag Profile (02/05/17 19:12) Labs Laboratory Tests Test 02/05/17 02/05/17 16:50 18:10 White Blood Count 6.9 TH/MM3 Red Blood Count 5.16 MIL/MM3 Hemoglobin 14.1 GM/DL Hematocrit 41.7 % Mean Corpuscular Volume 80.9 FL Mean Corpuscular Hemoglobin 27.3 PG Mean Corpuscular Hemoglobin 33.7 % Concent Red Cell Distribution Width 14.9 % Platelet Count 232 TH/MM3 Mean Platelet Volume 9.6 FL Neutrophils (%) (Auto) 88.9 % Lymphocytes (%) (Auto) 6.0 % Monocytes (%) (Auto) 4.4 % Eosinophils (%) (Auto) 0.3 % Basophils (%) (Auto) 0.4 % Neutrophils # (Auto) 6.1 TH/MM3 Lymphocytes # (Auto) 0.4 TH/MM3 Monocytes # (Auto) 0.3 TH/MM3 Eosinophils # (Auto) 0.0 TH/MM3 Basophils # (Auto) 0.0 TH/MM3 CBC Comment DIFF FINAL Differential Comment Sodium Level 138 MEQ/L Potassium Level 3.8 MEQ/L Chloride Level 101 MEQ/L Carbon Dioxide Level 27.1 MEQ/L Anion Gap 10 MEQ/L Blood Urea Nitrogen 12 MG/DL Creatinine 0.70 MG/DL Estimat Glomerular Filtration 87 ML/MIN Rate Random Glucose 143 MG/DL Calcium Level 8.8 MG/DL Total Bilirubin 0.4 MG/DL Aspartate Amino Transf 18 U/L (AST/SGOT) Alanine Aminotransferase 30 U/L (ALT/SGPT) Alkaline Phosphatase 69 U/L Total Protein 7.8 GM/DL Albumin 3.6 GM/DL Lipase 79 U/L Urine Color YELLOW Urine Turbidity CLEAR Urine pH 8.0 Urine Specific [place] 1.027 Urine Protein NEG mg/dL Urine Glucose (UA) NEG mg/dL Urine Ketones 10 mg/dL Urine Occult Blood NEG Urine Nitrite NEG Urine Bilirubin NEG Urine Urobilinogen LESS THAN 2.0 MG/DL Urine Leukocyte Esterase NEG Urine WBC LESS THAN 1 /hpf Urine Mucus FEW /lpf Microscopic Urinalysis Comment CULT NOT INDICATED MDM Medical Decision Making Medical Screen Exam Complete: Yes Emergency Medical Condition: Yes Medical Record Reviewed: Yes Interpretation(s) Laboratory Tests Test 02/05/17 02/05/17 16:50 18:10 Neutrophils (%) (Auto) 88.9 % (16.0-70.0) Lymphocytes (%) (Auto) 6.0 % (9.0-44.0) Lymphocytes # (Auto) 0.4 TH/MM3 (1.0-4.8) Estimat Glomerular Filtration 87 ML/MIN (>89) Rate Random Glucose 143 MG/DL (74-106) Urine Ketones 10 mg/dL (NEG) Urine Mucus FEW /lpf (OCC) Last 24 hours Impressions Abdomen/Pelvis CT 02/05/17 1636 Signed Impressions: Service Date/Time: Sunday, February 05, 2017 17:49 - CONCLUSION: 1. Widespread bony metastatic disease again noted. 2. However, no evidence of metastatic disease within the abdomen or pelvis. The nodular left adrenal gland is similar to before, not convincingly metastatic. 3. Unchanged 3 mm nonobstructing stone of the right kidney. Jag Mckeon MD Head CT 02/05/17 1600 Signed Impressions: Service Date/Time: Sunday, February 05, 2017 17:46 - CONCLUSION: 1. Diffuse skull involvement by metastatic disease. 2. 3.6 cm area of bone destruction involving the right temporal bone and with an adjacent small extra-axial hemorrhage that I believe is probably subdural but could be epidural. Jag Mckeon MD Differential Diagnosis Nausea, vomitingdehydration versus bedbug issues versus brain metastases versus acute obstruction Narrative Course CAT scan reveals metastases to the skull and subdural bleed. Case was discussed with Dr. Nassar who will like the patient to be medically admitted by hotel lobby concierge with consult to him. Patient was given anti-medic and he medications in the ER for pain control and vomiting control. Lab work otherwise does not reveal significant metabolic issues or dehydration. Case was discussed with Dr. Hodgson for ICU admission. Aggregate critical care time was 25 minutes. Time to perform other separately billable procedures was not included in the critical care time. My time did not include minutes spent treating any other patients simultaneously or on activities that did not directly contribute to the patient's treatment. The services I provided to this patient were to treat and/or prevent clinically significant deterioration that could result in: Worsening intracranial hemorrhage, electrolyte abnormality, dysrhythmia, dehydration, I provided critical care services requiring my management, as noted below: Chart data review, documentation time, medication orders and management, vital sign assessments/reviewing monitor data, ordering and reviewing lab tests, ordering and interpreting/reviewing x-rays and diagnostic studies, care of the patient and discussion of the patient with the admitting physicians. Diagnosis Primary Impression: Metastatic breast cancer Additional Impression: Intracranial hemorrhage Admitting Information Admitting Physician Requests: it Opal Lisa MD Feb 05, 2017 16:36
[2017-02-05 16:40] VITALS: BP 148/76; PULSE 90; RESP 16; TEMP 98; O2SAT 97
[2017-02-05] MEDS ORDERED: HYDROmorphone HCL PF 1 MG/ML VIAL IV PUSH ONE ×2 (17:00→18:00)
[2017-02-05 17:07] LABS: AUTOMATED NEUTROPHIL # 6.1 TH/MM3 (1.8-7.7); BASOPHIL % 0.4 % (0.0-2.0); EOSINOPHIL % 0.3 % (0.0-4.0); HEMATOCRIT 41.7 % (35.0-46.0); HEMO FLAGS DIFF FINAL; LYMPHOCYTE # 0.4 TH/MM3 (1.0-4.8); MEAN CELL VOLUME 80.9 FL (80.0-100.0); MEAN CORPUSCULAR HEMOGLOBIN 27.3 PG (27.0-34.0); MEAN CORPUSCULAR HGB CONC 33.7 % (32.0-36.0); MONO % 4.4 % (0.0-8.0); NEUT % 88.9 % (16.0-70.0); PLATELET COUNT 232 TH/MM3 (150-450); RED BLOOD COUNT 5.16 MIL/MM3 (4.00-5.30); RED CELL DISTRIBUTION WIDTH 14.9 % (11.6-17.2); WHITE BLOOD COUNT 6.9 TH/MM3 (4.0-11.0)
[2017-02-05 17:22] LABS: ANION GAP 10 MEQ/L (5-15); BICARBONATE 27.1 MEQ/L (21.0-32.0); BLOOD UREA NITROGEN 12 MG/DL (7-18); CHLORIDE 101 MEQ/L (98-107); GLOMERULAR FILTRATION RATE 87 ML/MIN (>89); POTASSIUM 3.8 MEQ/L (3.5-5.1); SODIUM (NA) 138 MEQ/L (136-145)
[2017-02-05 17:25] LABS: ALKALINE PHOSPHATASE 69 U/L (45-117); ALT (GPT) 30 U/L (10-53); AST (GOT) 18 U/L (15-37); TOTAL BILIRUBIN ADULT 0.4 MG/DL (0.2-1.0)
[2017-02-05] MEDS ORDERED: IOHEXOL 350 MG/ML 10 ML VIAL (for RAD DIAG) IV ONE (18:04)
--- NOTE | 2017-02-05 18:18 | RADRPT ---
EXAM DATE/TIME: 02/05/2017 17:46 [facility] COMPARISON: No previous studies available for comparison. INDICATIONS : Headaches and history of breast cancer; rule out metastatic disease. RADIATION DOSE: 56.35 CTDIvol (mGy) MEDICAL HISTORY : Carcinoma, breast. Hypertension. SURGICAL HISTORY : lumpectomy ENCOUNTER: Initial ACUITY: 1 day PAIN SCALE: 6/10 LOCATION: cranial TECHNIQUE: Multiple contiguous axial images were obtained of the head. Using automated exposure control and adj ustment of the mA and/or kV according to patient size, radiation dose was kept as low as reasonably a chievable to obtain optimal diagnostic quality images. FINDINGS: There is a mixed lytic and sclerotic appearance throughout the calvarium. There is jerson cortical shilo truction that primarily involves the inner table of the right temporal bone, for example series 301 i mage 16. Near through and through destruction is seen focally on series 301 image 19. The overall siz e of this area of severe involvement is estimated at about 3.6 cm. There is an approximately 5 mm thi ck acute appearing extra-axial hemorrhage adjacent to the calvarial destruction. No brain lesion demonstrated. No midline shift. No evidence of an acute ischemic event. CONCLUSION: 1. Diffuse skull involvement by metastatic disease. 2. 3.6 cm area of bone destruction involving the right temporal bone and with an adjacent small extra -axial hemorrhage that I believe is probably subdural but could be epidural. Jag Mckeon MD on February 05, 2017 at 18:12 Board Certified Radiologist. This report was verified electronically.
--- NOTE | 2017-02-05 18:24 | RADRPT ---
EXAM DATE/TIME: 02/05/2017 17:49 [facility] COMPARISON: BONE SCAN (WHOLE BODY), November 27, 2016, 12:08. CT ABDOMEN & PELVIS W/O CONTRAST, November 26 6, 7:05. INDICATIONS : Abdominal pain and vomiting starting yesterday. IV CONTRAST: 94 cc Omnipaque 350 (iohexol) IV ; Cumulative dose for multiple exams. ORAL CONTRAST: No oral contrast ingested. RADIATION DOSE: 9.96 CTDIvol (mGy) MEDICAL HISTORY : Carcinoma, breast. Hypertension. SURGICAL HISTORY : lumpectomy ENCOUNTER: Initial ACUITY: 1 day PAIN SCALE: 6/10 LOCATION: abdomen TECHNIQUE: Volumetric scanning of the abdomen and pelvis was performed. Using automated exposure control and ad justment of the mA and/or kV according to patient size, radiation dose was kept as low as reasonably achievable to obtain optimal diagnostic quality images. FINDINGS: LOWER LUNGS: Mildly nodular scarring again seen at the visualized right lung base without definite change. LIVER: Homogeneous density without lesion. There is no dilation of the biliary tree. No calcified gallston es. SPLEEN: Normal size without lesion. PANCREAS: Within normal limits. KIDNEYS: 3 mm nonobstructing stone of the right upper pole again noted. ADRENAL GLANDS: Nodularity the left adrenal gland is similar to before. VASCULAR: There is no aortic aneurysm. BOWEL/MESENTERY: The stomach, small bowel, and colon demonstrate no acute abnormality. There is no free intraperitone al air or fluid. ABDOMINAL WALL: Within normal limits. RETROPERITONEUM: There is no lymphadenopathy. BLADDER: No wall thickening or mass. REPRODUCTIVE: Within normal limits. INGUINAL: There is no lymphadenopathy or hernia. MUSCULOSKELETAL: Widespread osseous metastatic disease again noted. Healed right sacrum and left iliac bone in the int erim. Mild compression fracture seen at T9, not changed I don't see a new pathologic fracture. CONCLUSION: 1. Widespread bony metastatic disease again noted. 2. However, no evidence of metastatic disease within the abdomen or pelvis. The nodular left adrenal gland is similar to before, not convincingly metastatic. 3. Unchanged 3 mm nonobstructing stone of the right kidney. Jag Mckeon MD on February 05, 2017 at 18:18 Board Certified Radiologist. This report was verified electronically.
[2017-02-05 18:44] LABS: BLOOD, URINE NEG (NEG); COMMENT (UR) CULT NOT INDICATED; CULTURE IF INDICATED CULT NOT INDICATED; GLUCOSE,URINE NEG (NEG); KETONE, URINE 10 mg/dL (NEG); MUCUS URINE FEW /lpf (OCC); NITRITE,URINE NEG (NEG); URINE COLOR YELLOW (YELLW/STRAW)
[2017-02-05] MEDS ORDERED: PANTOPRAZOLE SODIUM 40 MG VIAL IV PUSH SCH (19:00)
[2017-02-05 19:02] VITALS: BP 136/71; PULSE 63; RESP 18; O2SAT 98
[2017-02-05] MEDS ORDERED: HYDROmorphone HCL PF 2 MG/ML VIAL IV PUSH ONE (19:30)
--- NOTE | 2017-02-05 19:59 | HHI.HP ---
HPI Service Critical Care Medicine Primary Care Physician Wang Candelaria MD Admission Diagnosis brain metastases/intercranial hemorrhage Diagnosis: Travel History International Travel<30 Days: No Contact w/Intl Traveler <30 Da: No Traveled to Known Affected Are: No History of Present Illness 56-year-old female with a past medical history of metastatic breast cancer which was originally diagnosed in 2012 when she was living in [facility], underwent R partial mastectomy. 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 . 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 She relocated to [place] the end of 2015 and was on palliative therapy with anastrazole. She has more recently been under the care of Dr. Candelaria (heme/ oncology) after she presented to [facility] with intractable pain. She underwent CT guided biopsy of metastatic lesion at T10 which confirmed adenocarcinoma from breast primary. She states she started on radiation therapy 01/29/17 and has undergone radiation 02/01-02/04. She missed her treatment today due to intractable vomiting that started around 11 am. She has experienced multiple episodes of emesis, nonbloody nonbilious. No diarrhea. She decided to seek treatment in [facility] emergency department. Workup revealed CT brain demonstrated extensive skull metastasis including destruction of the inner table of R temporal bone with associated 5 mm extraaxial hemorrhage (subdural versus possibly epidural per radiology report). She denies headache, photophobia, visual changes, paresthesias, numbness, seizures, or change in mental status. She complains of bilateral flank pain which she states has been chronic for "several months". She states she is on morphine ER 60 mg by mouth every 8 hours and morphine IR 30 mg every 4 hours and has not been able to keep this down due to repeated emesis. She complains of a burning sensation in her epigastrium which she attributes to multiple episodes of emesis. Labs reveal normal lipase and LFTs. Creatinine and electrolytes are normal. CT abdomen and pelvis demonstrates no acute appearing abnormality. She has widespread bony metastatic disease. Platelet count is normal. Will obtain coags. Dr. Nassar was consulted by the ED physician and he started Decadron 4 mg IV every 6 hours and recommended narcotics investigator admission. Past Family Social History Allergies: Coded Allergies: Aspirin (Verified Allergy, Severe, Anaphylaxis, 02/05/17) Past Medical History Metastatic breast cancer. Originally diagnosed in 2012. Discovered to be widely metastatic to bone in 2016 Past Surgical History Right partial mastectomy CT guided vertebral biopsy 02/02/17 (Dr. 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 HEAD: Atraumatic. Normocephalic. EYES: Right pupil 3 mm reactive, left pupil 2 mm reactive. No scleral icterus. No injection or drainage. ENT: No nasal bleeding or discharge. Mucous membranes pink and moist. NECK: Trachea midline. No JVD. No meningismus CARDIOVASCULAR: Regular rate and rhythm, sinus rhythm on the monitor. No murmurs rubs or gallops. CHEST: Right breast deformity, status post right partial mastectomy RESPIRATORY: Breathing comfortably on room air. Clear to auscultation bilaterally without wheezes Rales or rhonchi. GASTROINTESTINAL: Abdomen soft, non-tender, nondistended. Bowel sounds present MUSCULOSKELETAL: Extremities without clubbing, cyanosis. Very trace pedal edema. No calf tenderness, warmth, or swelling. Negative Homans sign NEUROLOGICAL: Awake and alert. Pupils as per above. No facial droop. Normal tongue protrusion. No obvious cranial nerve deficit. Strength 5 out of 5 in all extremities. Sensation intact. Normal speech. Oriented 4 Laboratory Laboratory Tests Test 02/05/17 02/05/17 16:50 18:10 White Blood Count 6.9 Red Blood Count 5.16 Hemoglobin 14.1 Hematocrit 41.7 Mean Corpuscular Volume 80.9 Mean Corpuscular Hemoglobin 27.3 Mean Corpuscular Hemoglobin 33.7 Concent Red Cell Distribution Width 14.9 Platelet Count 232 Mean Platelet Volume 9.6 Neutrophils (%) (Auto) 88.9 Lymphocytes (%) (Auto) 6.0 Monocytes (%) (Auto) 4.4 Eosinophils (%) (Auto) 0.3 Basophils (%) (Auto) 0.4 Neutrophils # (Auto) 6.1 Lymphocytes # (Auto) 0.4 Monocytes # (Auto) 0.3 Eosinophils # (Auto) 0.0 Basophils # (Auto) 0.0 CBC Comment DIFF FINAL Differential Comment Sodium Level 138 Potassium Level 3.8 Chloride Level 101 Carbon Dioxide Level 27.1 Anion Gap 10 Blood Urea Nitrogen 12 Creatinine 0.70 Estimat Glomerular Filtration 87 Rate Random Glucose 143 Calcium Level 8.8 Total Bilirubin 0.4 Aspartate Amino Transf 18 (AST/SGOT) Alanine Aminotransferase 30 (ALT/SGPT) Alkaline Phosphatase 69 Total Protein 7.8 Albumin 3.6 Lipase 79 Urine Color YELLOW Urine Turbidity CLEAR Urine pH 8.0 Urine Specific [place] 1.027 Urine Protein NEG Urine Glucose (UA) NEG Urine Ketones 10 Urine Occult Blood NEG Urine Nitrite NEG Urine Bilirubin NEG Urine Urobilinogen LESS THAN 2.0 Urine Leukocyte Esterase NEG Urine WBC LESS THAN 1 Urine Mucus FEW Microscopic Urinalysis Comment CULT NOT INDICATED Result Diagram: 02/05/17164902/05/171649 Assessment and Plan Assessment and Plan NEURO: Pain secondary to metastatic breast cancer Multiple vertebral metastatic lesions Multiple skull metastatic lesions including cortical destruction R temporal bone with erosion of inner table and underlying R 5 mm subdural hemorrhage Anxiety Symptomatic treatment of pain with Ofirmev 1 g q 6 hour prn pain 1-2, Dilaudid 2 -4 mg IV q3 hour prn breakthrough pain or unable to take po Morphine ER 60 mg po q 8 hours (home med, pretreat with antiemetic) Morphine IR 30 mg po q 4hours ( home med) Ativan 2 mg IV q4 hour prn anxiety Admit to [facility] for neuro monitoring. Decadron 4 mg IV q 6hours Repeat imaging to be decided by neurosurgery. Avoid anticoagulants/antiplatelets. Dr. Nassar consulted. RESP: Incentive spirometry every 2 hours awake CV: Monitor hemodynamics GI: Nausea and intractable vomiting Zofran 4 mg IV every 6 hours. Phenergan out of stock. Reglan if needed. Continue senna/docusate for bowel regimen Zantac 150 mg po now. Continue Protonix 40 mg IV daily FEN/RENAL: LR for maintenance fluids at 110 mL per hour Monitor I/O. Monitor creatinine/electrolytes ID: Monitor for signs and symptoms of infection. No leukocytosis. No fever. HEME: Metastatic breast cancer Continue arimidex 1 mg po daily Will consult oncology in a.m. Status post radiation therapy vertebral mets. 01/29 and 02/01-02/04. ENDO: Mild stress hyperglycemia likely secondary to vomiting. No history of diabetes. Will place on low-dose insulin sliding scale if needed while on Decadron. PROPH: SCDs for DVT prophylaxis. Hold pharmacologic DVT prophylaxis due to extra-axial cerebral hemorrhage. Protonix 40 mg IV daily for stress ulcer prophylaxis. ACCESS: Peripheral IV providing adequate access at this time. I spoke with patient who states that she wishes to be DO NOT RESUSCITATE. She is capacitated for medical decision-making. She states that if her heart stops or if appears imminent, "just let me go". She states she would NOT want intubation for respiratory failure or any other indication. and patient updated at bedside. Patient reassessed overnight several hours later and she reported significant improvement with symptomatic therapy of nausea/pain. Level 3 H and P. Brianne Hodgson MD Feb 05, 2017 19:59
[2017-02-05] MEDS ORDERED: MORPHINE SULFATE 30 MG TAB PO PRN (20:00)
[2017-02-05] MEDS ORDERED: ONDANSETRON HCL 4 MG/2 ML VIAL IV PUSH ONE (20:00)
[2017-02-05 20:16] LABS: APTT (PATIENT) 28.3 SEC (24.3-30.1); PROTHROMBIN TIME - PATIENT 10.5 SEC (9.8-11.6)
[2017-02-05] MEDS ORDERED: BISACODYL 10 MG SUPP RECTAL PRN (20:30)
[2017-02-05] MEDS ORDERED: SODIUM CHLORIDE 0.9% FLUSH 5 ML FLUSH IV FLUSH PRN (20:30)
[2017-02-05] MEDS ORDERED: TEMAZEPAM 15 MG CAP PO PRN (20:30)
[2017-02-05] MEDS ORDERED: MISCELLANEOUS NURSING INFORMATION XX SCH (20:30)
[2017-02-05] MEDS ORDERED: CHLORHEXIDINE GLUCONATE 2 % 1 PACK (2 CLOTHS) TOP PRN (20:30)
[2017-02-05] MEDS ORDERED: LORazepam 2 MG/ML VIAL IV PRN (20:30)
[2017-02-05] MEDS ORDERED: ACETAMINOPHEN 325 MG TAB PO PRN (20:30)
[2017-02-05] MEDS ORDERED: RESP: ALBUTEROL 2.5 MG/IPRATROPIUM 0.5 MG NEB (PRN) INH (20:30)
[2017-02-05] MEDS ORDERED: METOCLOPRAMIDE HCL 10 MG/2 ML VIAL IV PUSH PRN (20:45)
[2017-02-05] MEDS ORDERED: GLUCAGON 1 MG/ML VIAL OTHER PRN (20:45)
[2017-02-05] MEDS ORDERED: HYDROmorphone HCL PF 4 MG/ML VIAL IV PUSH PRN (20:45)
[2017-02-05] MEDS ORDERED: ACETAMINOPHEN 1000 MG/100 ML VIAL IV PRN (20:45)
[2017-02-05] MEDS ORDERED: DEXTROSE 50% IN WATER 50 ML VIAL(D50) IV PUSH PRN (20:45)
[2017-02-05] MEDS ORDERED: FAMOTIDINE 20 MG TAB PO ONE (21:00)
[2017-02-05] MEDS: INSULIN ASPART SUPPLEMENTAL SCALE SQ SCH (21:00)
[2017-02-05] MEDS: DOCUSATE SODIUM 50 MG/SENNA 8.6 MG TAB PO SCH (21:00)
[2017-02-05] MEDS: SODIUM CHLORIDE 0.9% FLUSH 5 ML FLUSH IV FLUSH SCH (21:00)
[2017-02-05] MEDS: LACTATED RINGER'S 1000 ML INJ 1,000 ML IV SCH (21:20)
[2017-02-05] MEDS: MORPHINE SULFATE 60 MG CONTROLLED RELEASE TAB PO SCH (21:43)
[2017-02-06] VITALS (8 sets, daily range): BP systolic 106–124; BP diastolic 58–70; PULSE 56–81; RESP 14–26; TEMP 98.4–98.7; O2SAT 94–98
[2017-02-06] MEDS: DEXAMETHASONE SOD PHOS 4 MG/ML VIAL IV PUSH SCH ×3 (01:21→11:28)
[2017-02-06] MEDS ORDERED: ONDANSETRON HCL 4 MG/2 ML VIAL IV PUSH PRN (02:00)
[2017-02-06] MEDS: HYDROmorphone HCL PF 1 MG/ML VIAL IV PRN ×2 (03:52→11:29)
[2017-02-06] MEDS ORDERED: CHLORHEXIDINE GLUCONATE 2 % 1 PACK (2 CLOTHS) TOP SCH (04:00)
[2017-02-06 05:01] LABS: BICARBONATE 25.9 MEQ/L (21.0-32.0); POTASSIUM 4.3 MEQ/L (3.5-5.1)
[2017-02-06] MEDS: INSULIN ASPART SUPPLEMENTAL SCALE SQ SCH ×2 (05:13→11:00)
[2017-02-06] MEDS: LACTATED RINGER'S 1000 ML INJ 1,000 ML IV SCH (05:45)
[2017-02-06 06:07] LABS: AUTOMATED NEUTROPHIL # 5.6 TH/MM3 (1.8-7.7); BASOPHIL % 0.2 % (0.0-2.0); EOSINOPHIL % 0.1 % (0.0-4.0); LYMPH % 6.8 % (9.0-44.0); LYMPHOCYTE # 0.4 TH/MM3 (1.0-4.8); MEAN CELL VOLUME 81.4 FL (80.0-100.0); MEAN CORPUSCULAR HEMOGLOBIN 27.2 PG (27.0-34.0); MEAN CORPUSCULAR HGB CONC 33.4 % (32.0-36.0); MONO % 4.6 % (0.0-8.0); NEUT % 88.3 % (16.0-70.0); PLATELET COUNT 193 TH/MM3 (150-450); RED BLOOD COUNT 4.67 MIL/MM3 (4.00-5.30); RED CELL DISTRIBUTION WIDTH 14.6 % (11.6-17.2); WHITE BLOOD COUNT 6.4 TH/MM3 (4.0-11.0)
[2017-02-06 06:14] LABS: HEMO FLAGS DIFF FINAL
[2017-02-06] MEDS: MORPHINE SULFATE 60 MG CONTROLLED RELEASE TAB PO SCH ×2 (07:02→13:00)
[2017-02-06] MEDS: DOCUSATE SODIUM 50 MG/SENNA 8.6 MG TAB PO SCH (08:02)
[2017-02-06] MEDS: SODIUM CHLORIDE 0.9% FLUSH 5 ML FLUSH IV FLUSH SCH (08:02)
[2017-02-06] MEDS ORDERED: ANASTROZOLE 1 MG TAB PO SCH (09:00)
[2017-02-06] MEDS ORDERED: PANTOPRAZOLE SODIUM 40 MG VIAL IV SCH (09:00)
--- NOTE | 2017-02-06 09:11 | PD.CONS ---
[facility] Service neurosurg Consult Requested By Dr Wilcox Reason for Consult [facility] Primary Care Physician Wang Candelaria MD History of Present Illness This is a 56-year-old female with history of metastatic breast cancer, diagnosed in 2012 when she was living in [facility]. She underwent a right partial mastectomy. 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 She was on palliative therapy with anastrazole. She has been under the care of Dr. Candelaria. CT guided biopsy of metastatic lesion at T10 which confirmed adenocarcinoma from breast primary. She states she started on radiation therapy 01/29/17 and has undergone radiation 02/01-02/04. She missed her treatment today due to intractable vomiting that started around 11 am. She has experienced multiple episodes of emesis. She came to [facility] emergency room. CT brain showed extensive skull metastasis including destruction of the inner table of R temporal bone with associated 5 mm extraaxial hemorrhage . She denies headache, photophobia, visual changes, paresthesias, numbness, seizures, or change in mental status. She complains of bilateral flank pain for "several months". She is on morphine ER 60 mg by mouth every 8 hours and morphine IR 30 mg every 4 hours. Neurosurgical consultation was requested Review of Systems Constitutional: DENIES: Diaphoretic episodes, Fatigue, Fever, Weight gain, Weight loss, Chills, Dizziness, Change in appetite, Night Sweats Endocrine: DENIES: Abnorml menstrual pattern, Heat/cold intolerance, Polydipsia , Polyuria, Polyphagia Eyes: DENIES: Blurred vision, Diplopia, Eye inflammation, Eye pain, Vision loss , Photosensitivity, Double Vision Ears, nose, mouth, throat: DENIES: Tinnitus, Hearing loss, Vertigo, Nasal discharge, Oral lesions, Throat pain, Hoarseness, Ear Pain, Running Nose, Epistaxis, Sinus Pain, Toothache, Odynophagia Respiratory: DENIES: Apneas, Cough, Snoring, Wheezing, Hemoptysis, Sputum production, Shortness of breath Cardiovascular: DENIES: Chest pain, Palpitations, Syncope, Dyspnea on Exertion , PND, Lower Extremity Edema, Orthopnea, Claudication Gastrointestinal: COMPLAINS OF: Nausea, Vomiting, DENIES: Abdominal pain, Black stools, Bloody stools, Constipation, Diarrhea, Difficulty Swallowing, Anorexia Genitourinary: COMPLAINS OF: Sexual dysfunction, DENIES: Abnormal vaginal bleeding, Dysmenorrhea, Dyspareunia, Urinary frequency, Urinary incontinence, Urgency, Hematuria, Dysuria, Nocturia, Vaginal discharge Musculoskeletal: COMPLAINS OF: Joint pain, Muscle aches, Back pain, DENIES: Stiffness, Joint Swelling, Neck pain Integumentary: DENIES: Abnormal pigmentation, Pruritus, Rash, Nail changes, Breast masses, Breast skin changes, Nipple discharge Hematologic/lymphatic: DENIES: Bruising, Lymphadenopathy Immunologic/allergic: DENIES: Eczema, Urticaria Neurologic: DENIES: Abnormal gait, Headache, Localized weakness, Paresthesias, Seizures, Speech Problems, Tremor, Poor Balance Psychiatric: DENIES: Anxiety, Confusion, Mood changes, Depression, Hallucinations, Agitation, Suicidal Ideation, Homicidal Ideation, Delusions Past Family Social History Allergies: Coded Allergies: Aspirin (Verified Allergy, Severe, Anaphylaxis, 02/05/17) Past Medical History Metastatic breast cancer. widely metastatic to bone Past Surgical History Right partial mastectomy Reported Medications Ativan 2 mg every 4 hours when necessary anxiety Senna/docusate 2 mg by mouth twice a day Morphine ER 60 mg by mouth every 8 hours Morphine IR 30 mg by mouth every 4 hours when necessary pain Vitamin D3 1000 units by mouth daily Arimidex 1 mg by mouth daily Active Ordered Medications Current Medications Ondansetron HCl 4 mg 4 mg ONCE ONCE IVP Last administered on 02/05/17 17:28; Start 02/05/17 at 16:00; Stop 02/05/17 at 16:02; Status DC Sodium Chloride (NS 1000 ml Inj) 1,000 ml @ 1,000 mls/hr Q1H IV Last administered on 02/05/17 17:28; Start 02/05/17 at 16:00; Stop 02/05/17 at 16:59 ; Status DC IV Flush (NS Flush) 2 ml UNSCH PRN IVF FLUSH AFTER USING IV ACCESS Last administered on 02/05/17 17:29; Start 02/05/17 at 16:00; Stop 02/05/17 at 20:48 ; Status DC Morphine Sulfate (Morphine Inj) 2 mg ONCE ONCE IV PUSH Last administered on 17:29; Start 02/05/17 at 16:15; Stop 02/05/17 at 16:16; Status DC Hydromorphone HCl (Dilaudid Pf Inj) 1 mg ONCE ONCE IV PUSH Last administered on 02/05/17 17:29; Start 02/05/17 at 17:00; Stop 02/05/17 at 17:01; Status DC Hydromorphone HCl (Dilaudid Pf Inj) 1 mg ONCE ONCE IV PUSH Last administered on 02/05/17 18:10; Start 02/05/17 at 18:00; Stop 02/05/17 at 18:01; Status DC Iohexol (Omnipaque 350 Inj) 94 ml STK-MED ONCE IV Last administered on 18:04; Start 02/05/17 at 18:04; Stop 02/05/17 at 18:05; Status DC Dexamethasone Sodium Phosphate (Decadron Inj) 4 mg Q6HR IV PUSH Last administered on 02/06/17 05:45; Start 02/06/17 at 00:00 Pantoprazole Sodium (Protonix Inj) 40 mg Q12H IV PUSH Last administered on 02/05 19:05; Start 02/05/17 at 19:00; Stop 02/05/17 at 20:52; Status DC Hydromorphone HCl (Dilaudid Pf Inj) 2 mg ONCE ONCE IV PUSH Last administered on 02/05/17 20:25; Start 02/05/17 at 19:30; Stop 02/05/17 at 19:32; Status DC Ondansetron HCl (Zofran Inj) 4 mg ONCE ONCE IV PUSH Last administered on 20:26; Start 02/05/17 at 20:00; Stop 02/05/17 at 20:01; Status DC Morphine Sulfate (Oramorph Sr) 60 mg Q8HR PO Last administered on 02/06/17 07: 02; Start 02/05/17 at 22:00 Morphine Sulfate (Msir) 30 mg Q4H PRN PO PAIN; Start 02/05/17 at 20:00 Ondansetron HCl (Zofran Inj) 4 mg Q6HR PRN IV PUSH nausea; Start 02/06/17 at 02 :00 IV Flush (NS Flush) 2 ml UNSCH PRN IV FLUSH FLUSH AFTER USING IV ACCESS Last administered on 02/06/17 08:02; Start 02/05/17 at 20:30 IV Flush (NS Flush) 2 ml BID IV FLUSH ; Start 02/05/17 at 21:00 Acetaminophen (Tylenol) 650 mg Q6H PRN PO PAIN 1-10 AND/OR FEVER >101F; Start 02/05/17 at 20:30 Hydromorphone HCl (Dilaudid Pf Inj) 2 mg Q3H PRN IV breakthru pain 3-7 or no po Last administered on 02/06/17 03:52; Start 02/05/17 at 20:30 Pantoprazole Sodium (Protonix Inj) 40 mg DAILY IV Last administered on 08:02; Start 02/06/17 at 09:00 Lorazepam (Ativan Inj) 2 mg Q4H PRN IV ANXIETY Last administered on 02/05/17 21:49; Start 02/05/17 at 20:30 Senna/Docusate Sodium (Lindsey-Colace) 2 tab BID PO Last administered on 08:02; Start 02/05/17 at 21:00 Bisacodyl (Dulcolax Supp) 10 mg DAILY PRN RECTAL CONSTIPATION; Start 02/05/17 at 20:30 Temazepam (Restoril) 15 mg HS PRN PO INSOMNIA; Start 02/05/17 at 20:30 Albuterol/ Ipratropium (Duoneb Neb) 1 ampule Q2HR NEB PRN INH WHEEZING; Start 02/05/17 at 20:30 Miscellaneous Information 1 Q361D XX ; Start 02/05/17 at 20:30 Chlorhexidine Gluconate (Chlorhexidine 2% Cloth) 3 pack Taper DAILY@04 TOP Last administered on 02/06/17 03:23; Start 02/06/17 at 04:00; Stop 02/02/18 at 03:59 Chlorhexidine Gluconate 3 pack 3 pack UNSCH PRN TOP HYGIENIC CARE; Start at 20:30 Lactated Ringer's (Lr 1000 ml Inj) 1,000 ml @ 110 mls/hr Q9H6M IV Last administered on 02/06/17 05:45; Start 02/05/17 at 21:00 Dextrose (D50w (Vial) Inj) 25 ml UNSCH PRN IV PUSH HYPOGLYCEMIA-SEE COMMENTS; Start 02/05/17 at 20:45 Glucagon (Glucagon Inj) 1 mg UNSCH PRN OTHER HYPOGLYCEMIA-SEE COMMENTS; Start 02/05/17 at 20:45 Insulin Aspart (NovoLOG SUPPLEMENTAL SCALE) 1 ACHS SLIDING SCALE SQ ; Start 09/14 at 21:00 Hydromorphone HCl (Dilaudid Pf Inj) 4 mg Q3H PRN IV PUSH BREAKTHROUGH PAIN 8- 10 OR PAIN 8-10 AND UNABLE TO TAKE PO; Start 02/05/17 at 20:45 Acetaminophen (Ofirmev Inj) 1,000 mg Q6H PRN IV PAIN 1-2 AND UNABLE TO TAKE PO ; Start 02/05/17 at 20:45 Famotidine (Pepcid) 20 mg ONCE ONCE PO Last administered on 02/05/17 21:21; Start 02/05/17 at 21:00; Stop 02/05/17 at 21:01; Status DC Metoclopramide HCl (Reglan Inj) 10 mg Q8H PRN IV PUSH NAUSEA/VOMITING DESPITE ZOFRAN; Start 02/05/17 at 20:45 Anastrozole (Arimidex) 1 mg DAILY PO Last administered on 02/06/17 08:02; Start 02/06/17 at 09:00 Family History Patient states her father of complications of leukemia No family history of breast cancer Social History She is an ongoing cigarette smoker with a [id number] history Denies use of alcohol or illicit drug use 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 Speech is fluent. Higher cognitive functions are normal. Cranial nerve examination demonstrates the pupils to be equal, round, and reactive to light. Extra-ocular movements are intact. Facial motor and sensory function are normal and symmetrical. Gross hearing is intact, bilaterally. The uvula is midline and elevates symmetrically with the soft palate. Sternocleidomastoid and trapezius muscles have normal and symmetrical strength. Other cranial nerves are intact. Neck is soft and supple. Cervical spine has a full range of motion in anterior flexion, extension, lateral bending, and rotation without pain. There is no tenderness to palpation to the spinous processes or paraspinal muscles. Muscle testing reveals normal bulk and tone overall without rigidity, spasticity , fasciculations, or atrophy. Muscle strength is 5/5 in all muscle groups of both upper extremities including deltoid, biceps, triceps, brachioradialis, wrist extension and customer supply coordinator. In the lower extremities, strength is 5/5 in both iliopsoas, quadriceps, hamstrings, plantar flexion, dorsiflexion, and extensor hallicus longus. Sensory examination is intact to light touch and sharp/dull discrimination in both the upper and lower extremities, symmetrically. Deep tendon reflexes are 2+ and symmetrical in the biceps, triceps, and brachioradialis, bilaterally, in the upper extremities. In the lower extremities , the patellar and Achilles are 2+, bilaterally. There is a bilateral plantar flexion response. Hoffmanns sign is negative. There is no clonus or other abnormal reflexes noted. Cerebellar examination is intact to [id number] test, rapid rhythmic alternating motion. There is no dysmetria, dysdiadochokinesia, truncal ataxia, or tremor. Laboratory Laboratory Tests Test 02/05/17 02/05/17 02/05/17 02/06/17 16:50 18:10 19:20 04:06 White Blood Count 6.9 Red Blood Count 5.16 Hemoglobin 14.1 Hematocrit 41.7 Mean Corpuscular Volume 80.9 Mean Corpuscular Hemoglobin 27.3 Mean Corpuscular Hemoglobin 33.7 Concent Red Cell Distribution Width 14.9 Platelet Count 232 Mean Platelet Volume 9.6 Neutrophils (%) (Auto) 88.9 Lymphocytes (%) (Auto) 6.0 Monocytes (%) (Auto) 4.4 Eosinophils (%) (Auto) 0.3 Basophils (%) (Auto) 0.4 Neutrophils # (Auto) 6.1 Lymphocytes # (Auto) 0.4 Monocytes # (Auto) 0.3 Eosinophils # (Auto) 0.0 Basophils # (Auto) 0.0 CBC Comment DIFF FINAL Differential Comment Sodium Level 138 138 Potassium Level 3.8 4.3 Chloride Level 101 103 Carbon Dioxide Level 27.1 25.9 Anion Gap 10 9 Blood Urea Nitrogen 12 9 Creatinine 0.70 0.58 Estimat Glomerular Filtration 87 108 Rate Random Glucose 143 116 Calcium Level 8.8 8.7 Total Bilirubin 0.4 Aspartate Amino Transf 18 (AST/SGOT) Alanine Aminotransferase 30 (ALT/SGPT) Alkaline Phosphatase 69 Total Protein 7.8 Albumin 3.6 Lipase 79 Urine Color YELLOW Urine Turbidity CLEAR Urine pH 8.0 Urine Specific [place] 1.027 Urine Protein NEG Urine Glucose (UA) NEG Urine Ketones 10 Urine Occult Blood NEG Urine Nitrite NEG Urine Bilirubin NEG Urine Urobilinogen LESS THAN 2.0 Urine Leukocyte Esterase NEG Urine WBC LESS THAN 1 Urine Mucus FEW Microscopic Urinalysis Comment CULT NOT INDICATED Prothrombin Time 10.5 Prothromb Time International 1.0 Ratio Activated Partial 28.3 Thromboplast Time Phosphorus Level 2.3 Magnesium Level 2.0 Test 02/06/17 05:51 White Blood Count 6.4 Red Blood Count 4.67 Hemoglobin 12.7 Hematocrit 38.0 Mean Corpuscular Volume 81.4 Mean Corpuscular Hemoglobin 27.2 Mean Corpuscular Hemoglobin 33.4 Concent Red Cell Distribution Width 14.6 Platelet Count 193 Mean Platelet Volume 9.1 Neutrophils (%) (Auto) 88.3 Lymphocytes (%) (Auto) 6.8 Monocytes (%) (Auto) 4.6 Eosinophils (%) (Auto) 0.1 Basophils (%) (Auto) 0.2 Neutrophils # (Auto) 5.6 Lymphocytes # (Auto) 0.4 Monocytes # (Auto) 0.3 Eosinophils # (Auto) 0.0 Basophils # (Auto) 0.0 CBC Comment DIFF FINAL Differential Comment Result Diagram: 02/06/17 0551 02/06/17 0406 Imaging Last Impressions Abdomen/Pelvis CT 02/05/17 1636 Signed Impressions: Service Date/Time: Sunday, February 05, 2017 17:49 - CONCLUSION: 1. Widespread bony metastatic disease again noted. 2. However, no evidence of metastatic disease within the abdomen or pelvis. The nodular left adrenal gland is similar to before, not convincingly metastatic. 3. Unchanged 3 mm nonobstructing stone of the right kidney. Jag Mckeon MD Head CT 02/05/17 1600 Signed Impressions: Service Date/Time: Sunday, February 05, 2017 17:46 - CONCLUSION: 1. Diffuse skull involvement by metastatic disease. 2. 3.6 cm area of bone destruction involving the right temporal bone and with an adjacent small extra-axial hemorrhage that I believe is probably subdural but could be epidural. Jag Mckeon MD Assessment and Plan Assessment and Plan 56 year old Pain secondary to metastatic breast cancer Multiple vertebral metastatic lesions Multiple skull metastatic lesions including cortical destruction R temporal bone with erosion of inner table and underlying subdural hemorrhage Anxiety Attending Statement I have reviewed her clinical and further studies. neuro checks in a serial fashion. MRI brain MARY Respiratory. pulmonary toilette, nasotracheal suction, and breathing treatments with nebulizers. PT and OT eval Nutrition. NPO Renal. monitor closely urine output, BUN and creatinine Nausea and intractable vomiting. Zofran 4 mg IV every 6 hours. Phenergan out of stock. Reglan if needed. Continue senna/docusate for bowel regimen Metastatic breast cancer. Continue arimidex 1 mg po daily consult oncology Status post radiation therapy vertebral mets. 3/3 and 3/6-3/9. Endocrine. Monitor serial Acu checks and SSI for tight control ID monitor for signs of infection Protonix for stress ulcer prophylaxis Geovanni hose and SCD's for DVT prophylaxis Further recommendations will be provided depending on the patient clinical evaluation and follow up studies. Lan Nassar MD Feb 06, 2017 09:11
--- NOTE | 2017-02-06 10:09 | RADRPT ---
EXAM DATE/TIME: 02/06/2017 09:46 [facility] COMPARISON: CT BRAIN W & W/O CONTRAST, February 05, 2017, 17:46. INDICATIONS : Evaluate for intracerebral hemorrhage. RADIATION DOSE: 49.05 CTDIvol (mGy) MEDICAL HISTORY : Hypertension. Metastatic disease. SURGICAL HISTORY : None. ENCOUNTER: Subsequent ACUITY: 1 day PAIN SCALE: 0/10 LOCATION: cranial TECHNIQUE: Multiple contiguous axial images were obtained of the head. Using automated exposure control and adj ustment of the mA and/or kV according to patient size, radiation dose was kept as low as reasonably a chievable to obtain optimal diagnostic quality images. FINDINGS: CEREBRUM: The ventricles are normal for age. There continues to be extra-axial increased density at the right frontal lobe adjacent to a right frontotemporal focal bone lesion. Increased soft tissue density kian uring up to 5 mm could be from a mass versus some hemorrhage. The configuration is unchanged from the prior exam. No evidence of midline shift, mass lesion, new hemorrhage or acute infarction. POSTERIOR FOSSA: The cerebellum and brainstem are intact. The 4th ventricle is midline. The cerebellopontine angle i s unremarkable. EXTRACRANIAL: The visualized portion of the orbits is intact. SKULL: Again noted is the right frontotemporal bone lesion. There is also a small bone lesion at the inferio r left frontal lobe. There is patchy areas of sclerosis seen in the skull. CONCLUSION: 1. No acute change is seen. 2. Right frontal temporal bone lesion with associated soft tissue density/extra-axial hemorrhage. Thi s configuration is unchanged. 3. In addition to the right frontal temporal bone lesion there is a left focal bone lesion and scatte red areas of sclerosis concerning for bony metastatic changes. Jag Santiago MD on February 06, 2017 at 10:00 Board Certified Radiologist. This report was verified electronically.
--- NOTE | 2017-02-06 11:20 | HHI.CCPN ---
Subjective Remarks/Hospital Course 56-year-old female with a past medical history of metastatic breast cancer which was originally diagnosed in 2012 when she was living in [facility], underwent R partial mastectomy. 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 . 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 She relocated to [place] the end of 2015 and was on palliative therapy with anastrazole. She has more recently been under the care of Dr. Candelaria (heme/ oncology) after [place] [facility] [place]. She underwent CT guided biopsy of metastatic lesion at T10 which confirmed adenocarcinoma from breast primary. She states she started on radiation therapy 01/29/17 and has undergone radiation 02/01-02/04. She missed her treatment today due to intractable vomiting that started around 11 am. She has experienced multiple episodes of emesis, nonbloody nonbilious. No diarrhea. She decided to seek treatment [place] [facility]. Workup revealed CT brain demonstrated extensive skull metastasis including destruction of the inner table of R temporal bone with associated 5 mm extraaxial hemorrhage (subdural versus possibly epidural per radiology report). She denies headache, photophobia, visual changes, paresthesias, numbness, seizures, or change in mental status. She complains of bilateral flank pain which she states has been chronic for "several months". She states she is on morphine ER 60 mg by mouth every 8 hours and morphine IR 30 mg every 4 hours and has not been able to keep this down due to repeated emesis. She complains of a burning sensation in her epigastrium which she attributes to multiple episodes of emesis. Labs reveal normal lipase and LFTs. Creatinine and electrolytes are normal. CT abdomen and pelvis demonstrates no acute appearing abnormality. She has widespread bony metastatic disease. Platelet count is normal. Will obtain coags. Dr. Nassar was consulted by the ED physician and he started Decadron 4 mg IV every 6 hours and recommended dental technologist admission. Subjective 02/06: Afebrile. CT essentially unchanged. Dr. Nassar requesting patient be seen by oncology prior to discharge. Objective Vital Signs Date Time Temp Pulse Resp B/P Pulse Ox O2 Delivery O2 Flow Rate FiO2 02/06/17 08:00 60 02/06/17 08:00 98.4 14 106/58 94 02/06/17 02:00 Room Air Result Diagram: 02/06/17 0551 02/06/17 0406 Imaging Last Impressions Abdomen/Pelvis CT 02/05/17 1636 Signed Impressions: Service Date/Time: Sunday, February 05, 2017 17:49 - CONCLUSION: 1. Widespread bony metastatic disease again noted. 2. However, no evidence of metastatic disease within the abdomen or pelvis. The nodular left adrenal gland is similar to before, not convincingly metastatic. 3. Unchanged 3 mm nonobstructing stone of the right kidney. Jag Mckeon MD Head CT 02/05/17 1600 Signed Impressions: Service Date/Time: Sunday, February 05, 2017 17:46 - CONCLUSION: 1. Diffuse skull involvement by metastatic disease. 2. 3.6 cm area of bone destruction involving the right temporal bone and with an adjacent small extra-axial hemorrhage that I believe is probably subdural but could be epidural. Jag Mckeon MD Objective Remarks GENERAL: 56-year-old female, currently resting in bed in no acute distress on room air SKIN: Warm and dry. No rash HEAD: Atraumatic. Normocephalic. EYES: Full start essentially equal and reactive to me this morning around 2-3 mm. No scleral icterus. No injection or drainage. ENT: No nasal bleeding or discharge. Mucous membranes pink and moist. NECK: Trachea midline. No JVD. No thyromegaly lymphadenopathy. CARDIOVASCULAR: RRR. S1, S2. No S4. Without murmur RESPIRATORY: Clear to auscultation without wheezes rales or rhonchi GASTROINTESTINAL: Abdomen soft, non-tender, nondistended. Bowel sounds present MUSCULOSKELETAL: Extremities with trace lower extremity edema. Positive status post right partial mastectomy. NEUROLOGICAL: Awake and alert. Cranial nerves II through XII grossly intact. Strength is equal symmetric bilaterally. Normal sensation. A/P Assessment and Plan NEURO/Psych: Pain secondary to metastatic breast cancer Multiple vertebral metastatic lesions Multiple skull metastatic lesions including cortical destruction R temporal bone with erosion of inner table and underlying R 5 mm subdural hemorrhage Anxiety Chronic benzodiazepine use Symptomatic treatment of pain with Ofirmev 1 g q 6 hour prn pain 1-2, Dilaudid 2 -4 mg IV q3 hour prn breakthrough pain or unable to take po Morphine ER 60 mg po q 8 hours (home med, pretreat with antiemetic) Morphine IR 30 mg po q 4hours (home med) Ativan 2 mg IV q4 hour prn anxiety Decadron 4 mg IV q 6hours for bony pain Repeat CT head 02/06 reveals stable extraax hematoma with bony metastasis the to the skull RESP: Nasal cannula to maintain saturations greater than equal to 90% Incentive spirometry every 2 hours awake CV: Currently on LR at 110 cc an hour Currently not requiring antihypertensives and or vasopressors GI: Nausea and intractable vomiting Obstipation Zofran 4 mg IV every 6 hours. As needed Continue senna/docusate for bowel regimen. On senna +2 tablets twice a day at home Continue Protonix 40 mg IV daily FEN/RENAL: LR for maintenance fluids at 110 mL per hour Monitor I/O. Monitor creatinine/electrolytes ID: Monitor for signs and symptoms of infection. HEME: Metastatic breast cancer Continue Arimidex 1 mg po daily Awaiting consult oncology Status post radiation therapy vertebral mets. 01/29 and 02/01-02/04. ENDO: Mild stress hyperglycemia likely secondary to vomiting. No history of diabetes. Will place on low-dose insulin sliding scale if needed while on Decadron. PROPH: SCDs for DVT prophylaxis. Hold pharmacologic DVT prophylaxis due to extra- axial cerebral hemorrhage. Protonix 40 mg IV daily for stress ulcer prophylaxis. ACCESS: Peripheral IV providing adequate access at this time. Level II. Patient is stable from a critical care medicine standpoint. We will transfer the floor and assign care to the hospitalist in a.m. 02/07. Eliseo Fernandes MD Feb 06, 2017 11:20
[2017-02-06] MEDS ORDERED: POTASSIUM PHOSPHATE/SODIUM PHOSPHATE 250 MG TAB PO SCH (14:00)
--- NOTE | 2017-02-06 17:10 | EKG ---
Date Performed: 02/05/2017 Time Performed: 17:20:19 PTAGE: 56 years EKG: Sinus rhythm RIGHT VENTRICULAR CONDUCTION DISTURBANCE LEFT AXIS DEVIATION. NONSPECIFIC T-WAVE CHANGE. Compared to prior tracing no significant change ABNORMAL ECG PREVIOUS TRACING : 01/29/2017 22.48 DOCTOR: Sha Gandara Interpretating Date/Time 02/06/2017 17:10:27
[2017-02-07] MEDS ORDERED: ANAS1 PO (12:17)
== END 2017-02-06 13:48 | disposition left against medical advice (07) | DRG 65 ==
LOC: NEPE 15:55 → NEDA 19:15 → N03A 02-06 00:55
PROVIDERS: ADMIT Emergency Medicine; ATTEND Emergency Medicine
DX: I62.00 Nontraumatic subdural hemorrhage, unspecified (principal); C79.51 Secondary malignant neoplasm of bone; C50.911 Malignant neoplasm of unspecified site of right female breast; I10 Essential (primary) hypertension; R73.09 Other abnormal glucose; G89.3 Neoplasm related pain (acute) (chronic); K59.00 Constipation, unspecified; F17.210 Nicotine dependence, cigarettes, uncomplicated; F41.9 Anxiety disorder, unspecified; Z17.0 Estrogen receptor positive status [ER+]; Z80.6 Family history of leukemia; Z66 Do not resuscitate; Z88.6 Allergy status to analgesic agent
CPT/HCPCS: 70450; 70470; 74177; 80048; 80053; 81001; 82948; 83690; 83735; 84100; 85025; 85610; 85730; 87641; 93005; 96361; 96374; 96375; 96376; C9113; J1100; J1170; J2060; J2270; J2405; J7030; J7120; Q9967

== ENCOUNTER 2017-02-07 07:13 | Inpatient (IN) | payer OTHER ==
[~2017-02-07] VITALS: Ht 175.3 cm; Wt 75.0 kg
[2017-02-07 07:16] VITALS: BP 156/78; PULSE 88; RESP 24; TEMP 97.7; O2SAT 97
[2017-02-07] MEDS ORDERED: SODIUM CHLOR 0.9% 1000 ML INJ 1,000 ML IV SCH (07:57)
[2017-02-07] MEDS ORDERED: MORPHINE SULFATE 8 MG/ML INJ IV PUSH ONE (08:00)
[2017-02-07] MEDS ORDERED: ONDANSETRON HCL 4 MG/2 ML VIAL IVP ONE ×2 (08:00→09:15)
[2017-02-07] MEDS ORDERED: SODIUM CHLOR 0.9% 1000 ML INJ 1,000 ML IV ONE (08:00)
[2017-02-07] MEDS ORDERED: SODIUM CHLORIDE 0.9% FLUSH 5 ML FLUSH IVF PRN (08:00)
[2017-02-07] MEDS ORDERED: LORazepam 2 MG/ML VIAL IV PUSH ONE (08:15)
--- NOTE | 2017-02-07 08:27 | PD ---
HPI Chief Complaint: GI Complaint Time Seen by Provider: 07:44 Travel History International Travel<30 days: No Contact w/Intl Traveler<30days: No Traveled to known affect area: No History of Present Illness HPI Patient is an unfortunate 56-year-old female with history of metastatic breast cancer which was initially diagnosed in 2012. 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 She has been under the care of Dr. Candelaria with hematology/oncology. 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 Patient was seen in the emergency room on February 05, 2017 as she was complaining of intractable nausea and vomiting and abdominal pain. During the initial workup, patient had a CAT scan of her brain which showed extensive skull metastasis including distraction of the inner table of the right temporal lobe with associated 5 mm extraaxial hemorrhage) subdural versus possibly epidural as per radiology report. She was admitted to the ICU with this diagnosis. She had a repeat CT Brain on February 06, 2017 which showed a similar report when compared to February 05 Patient reports that she felt better yesterday and decided to leave AMA. Reports that after she left the hospital yesterday, she has been feeling nauseous and has been vomiting at home. She reports that she is not feeling any better and requests readmission for intractable nausea and vomiting. case reviewed with Dr Bowden who request admission to hospital [facility] Past Medical History Cancer: Yes Cardiovascular Problems: No Chemotherapy: No Endocrine: No Gastrointestinal Disorders: No Genitourinary: No Hypertension: Yes Immune Disorder: No Musculoskeletal: No Neurologic: No Psychiatric: No Reproductive: No Respiratory: No Radiation Therapy: Yes Tetanus Vaccination: < 5 Years ?: Not Past Surgical History Abdominal Surgery: No AICD: No Arteriovenous Shunt: No Cardiac Surgery: No Ear Surgery: No Endocrine Surgery: No Eye Surgery: No Genitourinary Surgery: No Gynecologic Surgery: No Insulin Pump: No Joint Replacement: No Oral Surgery: No Pacemaker: No Thoracic Surgery: No Other Surgery: Yes (Lumpectomy) Social History Alcohol Use: No Tobacco Use: Yes (PPD) Substance Use: No Allergies-Medications (Allergen,Severity, Reaction): Coded Allergies: Aspirin (Verified Allergy, Severe, Anaphylaxis, 02/07/17) Reported Meds & Prescriptions Reported Meds & Active Scripts Active Ativan (Lorazepam) 2 Mg Tab 2 Mg PO Q4H PRN Senna Plus 8.6-50 mg (Sennosides-Docusate Sodium) 1 Tab Tab 2 Tab PO BID Morphine ER (Morphine Sulfate) 60 Mg Tab 60 Mg PO Q8HR Morphine IR (Morphine Sulfate) 30 Mg Tab 30 Mg PO Q6HR Vitamin D3 (Cholecalciferol) 1,000 Unit Tab 1,000 Units PO DAILY [Anastrozole] 1 MG Tab 1 Mg PO DAILY Ibuprofen 800 Mg Tab 800 Mg PO Q8H PRN Review of Systems General / Constitutional: No: Fever Eyes: No: Visual changes HENT: No: Headaches Cardiovascular: No: Chest Pain or Discomfort Respiratory: No: Shortness of Breath Gastrointestinal: Positive: Nausea, Vomiting, Abdominal Pain Genitourinary: No: Urgency, Dysuria Musculoskeletal: No: Pain Skin: No Rash Neurologic: No: Weakness Psychiatric: No: Depression Endocrine: No: Polydipsia Hematologic/Lymphatic: No: Easy Bruising Physical Exam Narrative GENERAL: Moderate distress SKIN: Warm and dry. HEAD: Atraumatic. Normocephalic. EYES: Pupils equal and round. No scleral icterus. No injection or drainage. ENT: No nasal bleeding or discharge. Mucous membranes pink and moist. NECK: Trachea midline. No JVD. CARDIOVASCULAR: Regular rate and rhythm. No murmur appreciated. RESPIRATORY: No accessory muscle use. Clear to auscultation. Breath sounds equal bilaterally. GASTROINTESTINAL: Abdomen soft, tenderness to the left midabdomen MUSCULOSKELETAL: No obvious deformities. No clubbing. No cyanosis. No edema. NEUROLOGICAL: Awake and alert. No obvious cranial nerve deficits. Motor grossly within normal limits. Normal speech. PSYCHIATRIC: Appropriate mood and affect; insight and judgment normal. Data Data Last Documented VS Vital Signs Date Time Temp Pulse Resp B/P Pulse Ox O2 Delivery O2 Flow Rate FiO2 02/07/17 09:49 94 Room Air 02/07/17 09:00 64 19 160/76 02/07/17 07:16 97.7 Orders Complete Blood Count With Diff (02/07/17 07:57) Comprehensive Metabolic Panel (02/07/17 07:57) Prothrombin Time / Inr (Pt) (02/07/17 07:57) Act Partial Throm Time (Ptt) (02/07/17 07:57) Urinalysis - C+S If Indicated (02/07/17 07:57) Iv Access Insert/Monitor (02/07/17 07:57) Ecg Monitoring (02/07/17 07:57) Oximetry (02/07/17 07:57) NPO (02/07/17 07:57) Ondansetron Inj (Zofran Inj) (02/07/17 08:00) Sodium Chlor 0.9% 1000 Ml Inj (Ns 1000 M (02/07/17 07:57) Sodium Chloride 0.9% Flush (Ns Flush) (02/07/17 08:00) Electrocardiogram (02/07/17 07:57) Morphine Inj (Morphine Inj) (02/07/17 08:00) Sodium Chlor 0.9% 1000 Ml Inj (Ns 1000 M (02/07/17 08:00) Lorazepam Inj (Ativan Inj) (02/07/17 08:15) Ct Brain W/O Iv Contrast(Rout) (02/07/17 09:14) Ondansetron Inj (Zofran Inj) (02/07/17 09:15) Promethazine (Phenergan) (02/07/17 09:30) Potassium Chlor 20 Meq Premix (Kcl 20 Me (02/07/17 10:15) Admit Order (Ed Use Only) (02/07/17 10:36) Labs Laboratory Tests Test 02/07/17 08:00 White Blood Count 9.1 TH/MM3 Red Blood Count 5.01 MIL/MM3 Hemoglobin 13.8 GM/DL Hematocrit 40.6 % Mean Corpuscular Volume 81.1 FL Mean Corpuscular Hemoglobin 27.6 PG Mean Corpuscular Hemoglobin 34.1 % Concent Red Cell Distribution Width 15.2 % Platelet Count 254 TH/MM3 Mean Platelet Volume 9.6 FL Neutrophils (%) (Auto) 78.1 % Lymphocytes (%) (Auto) 9.8 % Monocytes (%) (Auto) 10.7 % Eosinophils (%) (Auto) 1.0 % Basophils (%) (Auto) 0.4 % Neutrophils # (Auto) 7.1 TH/MM3 Lymphocytes # (Auto) 0.9 TH/MM3 Monocytes # (Auto) 1.0 TH/MM3 Eosinophils # (Auto) 0.1 TH/MM3 Basophils # (Auto) 0.0 TH/MM3 CBC Comment DIFF FINAL Differential Comment Prothrombin Time 10.7 SEC Prothromb Time International 1.0 RATIO Ratio Activated Partial 25.5 SEC Thromboplast Time Sodium Level 139 MEQ/L Potassium Level 3.4 MEQ/L Chloride Level 105 MEQ/L Carbon Dioxide Level 23.6 MEQ/L Anion Gap 10 MEQ/L Blood Urea Nitrogen 14 MG/DL Creatinine 0.73 MG/DL Estimat Glomerular Filtration 83 ML/MIN Rate Random Glucose 108 MG/DL Calcium Level 8.9 MG/DL Total Bilirubin 0.3 MG/DL Aspartate Amino Transf 20 U/L (AST/SGOT) Alanine Aminotransferase 28 U/L (ALT/SGPT) Alkaline Phosphatase 61 U/L Total Protein 7.8 GM/DL Albumin 3.9 GM/DL MDM Medical Decision Making Medical Screen Exam Complete: Yes Emergency Medical Condition: Yes Interpretation(s) EKG at 0817: Normal sinus rhythm at 62 bpm, QT/QTc 307/402 incomplete rbbb Vital Signs Date Time Temp Pulse Resp B/P Pulse Ox O2 Delivery O2 Flow Rate FiO2 02/07/17 07:16 97.7 88 24 156/78 97 Room Air Differential Diagnosis Brain metastases, intracranial hemorrhage, electrolyte abnormality, metastatic disease Narrative Course Patient is a 56-year-old female who has history of metastatic breast cancer, return to the emergency room after she was recently diagnosed with brain metastasis with intracranial hemorrhage on February 05, 2017. Patient left AGAINST MEDICAL ADVICE yesterday after she reported she was feeling much better and was no longer nauseous while in the hospital. Patient returns to emergency room this morning with complaints of intractable nausea vomiting since she left the hospital yesterday. Patient reports that she now realizes that she should not left the hospital, that she should've stayed for further treatment. Patient reports that she has been feeling nauseous and has been vomiting, reports that her abdominal pain is at baseline. Labs ordered, iv fluid as well as antiemetics ordered. Patient reevaluated, patient reports that now she has a severe headache, that she feels nauseous still, CT of the head ordered for further evaluation of possible extension of her intracranial hemorrhage. Will readminister antinausea medications previous records reviewed: neurosurgeon recommended MRI of brain Diagnosis Primary Impression: Intracranial hemorrhage Additional Impression: Nausea & vomiting Admitting Information Admitting Physician Requests: Admit Angie Daneille DO Feb 07, 2017 08:27
[2017-02-07 08:28] LABS: AUTOMATED NEUTROPHIL # 7.1 TH/MM3 (1.8-7.7); BASOPHIL % 0.4 % (0.0-2.0); EOSINOPHIL # 0.1 TH/MM3 (0-0.4); HEMATOCRIT 40.6 % (35.0-46.0); HEMO FLAGS DIFF FINAL; LYMPH % 9.8 % (9.0-44.0); LYMPHOCYTE # 0.9 TH/MM3 (1.0-4.8); MEAN CELL VOLUME 81.1 FL (80.0-100.0); MEAN CORPUSCULAR HEMOGLOBIN 27.6 PG (27.0-34.0); MEAN CORPUSCULAR HGB CONC 34.1 % (32.0-36.0); MONO % 10.7 % (0.0-8.0); NEUT % 78.1 % (16.0-70.0); PLATELET COUNT 254 TH/MM3 (150-450); RED BLOOD COUNT 5.01 MIL/MM3 (4.00-5.30); RED CELL DISTRIBUTION WIDTH 15.2 % (11.6-17.2); WHITE BLOOD COUNT 9.1 TH/MM3 (4.0-11.0)
[2017-02-07 08:42] LABS: APTT (PATIENT) 25.5 SEC (24.3-30.1); PROTHROMBIN TIME - PATIENT 10.7 SEC (9.8-11.6)
[2017-02-07 08:46] LABS: ALKALINE PHOSPHATASE 61 U/L (45-117); ALT (GPT) 28 U/L (10-53); ANION GAP 10 MEQ/L (5-15); AST (GOT) 20 U/L (15-37); BICARBONATE 23.6 MEQ/L (21.0-32.0); BLOOD UREA NITROGEN 14 MG/DL (7-18); CHLORIDE 105 MEQ/L (98-107); GLOMERULAR FILTRATION RATE 83 ML/MIN (>89); POTASSIUM 3.4 MEQ/L (3.5-5.1); SODIUM (NA) 139 MEQ/L (136-145); TOTAL BILIRUBIN ADULT 0.3 MG/DL (0.2-1.0)
[2017-02-07 09:00] VITALS: BP 160/76; PULSE 64; RESP 19; O2SAT 95
[2017-02-07] MEDS ORDERED: PROMETHAZINE HCL 25 MG TAB PO ONE (09:30)
[2017-02-07 09:49] VITALS: O2SAT 94
--- NOTE | 2017-02-07 09:56 | RADRPT ---
EXAM DATE/TIME: 02/07/2017 09:30 [place] COMPARISON: CT BRAIN W/O CONTRAST, February 06, 2017, 9:46. INDICATIONS : Patient woke up this morning with a severe headace and vomiting. Previous CT yesterday. RADIATION DOSE: 56.35 CTDIvol (mGy) MEDICAL HISTORY : Carcinoma, breast. Metastatic, brain. Metastatic, bone.Hypertension. SURGICAL HISTORY : None. ENCOUNTER: Initial ACUITY: 1 day PAIN SCALE: 7/10 LOCATION: cranial TECHNIQUE: Multiple contiguous axial images were obtained of the head. Using automated exposure control and adj ustment of the mA and/or kV according to patient size, radiation dose was kept as low as reasonably a chievable to obtain optimal diagnostic quality images. FINDINGS: CEREBRUM: The ventricles are normal for age. No evidence of midline shift, mass lesion, hemorrhage or acute in farction. There continues to be a right frontal temporal bone lesion with an extra-axial area of inc reased soft tissue density measuring 5 mm. This is unchanged. POSTERIOR FOSSA: The cerebellum and brainstem are intact. The 4th ventricle is midline. The cerebellopontine angle i s unremarkable. EXTRACRANIAL: The visualized portion of the orbits is intact. SKULL: In addition to the right frontotemporal lesion, there are several areas of sclerosis in the skull and upper cervical spine at C1. CONCLUSION: 1. Persistent right bone lesion with a thin area of extra-axial soft tissue density/hemorrhage, signi ficant mass effect is not seen. 2. Multiple sclerotic bone lesions. Jag Santiago MD on February 07, 2017 at 9:50 Board Certified Radiologist. This report was verified electronically.
[2017-02-07] MEDS ORDERED: NALOXONE HCL 0.4 MG/ML AMP IV PRN (11:00)
[2017-02-07] MEDS ORDERED: METOCLOPRAMIDE HCL 10 MG/2 ML VIAL IV PUSH PRN (11:00)
[2017-02-07] MEDS ORDERED: ACETAMINOPHEN 325 MG TAB PO PRN (11:00)
[2017-02-07] MEDS ORDERED: SODIUM CHLORIDE 0.9% FLUSH 5 ML FLUSH FLUSH PRN (11:00)
[2017-02-07] MEDS ORDERED: MAGNESIUM HYDROXIDE SUSP 30 ML CUP PO PRN (11:00)
[2017-02-07] MEDS: POTASSIUM CHLOR 20 MEQ PREMIX 100 ML IV SCH ×2 (11:11→13:19)
[2017-02-07] MEDS ORDERED: LORazepam 2 MG TAB PO PRN (11:30)
[2017-02-07] MEDS ORDERED: ANAS1 PO (12:17)
[2017-02-07] MEDS: D5-1/2 NS + KCL 20 MEQ INJ 1,000 ML IV SCH ×2 (13:19→21:38)
[2017-02-07] MEDS ORDERED: PANTOPRAZOLE SODIUM 40 MG VIAL IV PUSH ONE (13:45)
--- NOTE | 2017-02-07 14:03 | HHI.HP ---
[facility] Wang Candelaria MD Admission Diagnosis Intractable nausea and vomiting, Intracranial hemorrhage Diagnoses: Chief Complaint: Intractable nausea and vomiting. Abdominal pain. Travel History International Travel<30 Days: No Contact w/Intl Traveler <30 Da: No Traveled to Known Affected Are: No History of Present Illness 56-year-old female with a history of metastatic brain cancer to the spine and evidence of skull metastasis diagnosed in 2012. The patient has received treatment in [place] and [facility]. She is currently under the care of Dr. Candelaria and receiving palliative therapy with anastrozole. The patient presented to the emergency room 2 days ago with complaint of intractable nausea, vomiting, and abdominal pain. A CAT scan at the time revealed extensive skull metastasis including distraction of the inner table of the right temporal bone with associated 5 mm extra-axial hemorrhage. The patient was admitted and undergoing treatment but unfortunately left the hospital AMA after reportedly feeling better. She returned today with the same complaints. She reports having 10 episodes of nonbilious nonbloody emesis since this morning. She has persistent midline burning chest pain with associated epigastric and diffuse abdominal pain. She is now requesting admission to the hospital for further treatment. She denies any diarrhea. She reports a mild headache, otherwise no change in vision. No lightheadedness. No difficulty walking. Review of Systems Constitutional: DENIES: Fever, Chills Eyes: DENIES: Blurred vision, Diplopia Ears, nose, mouth, throat: COMPLAINS OF: Hoarseness, DENIES: Vertigo, Oral lesions Respiratory: DENIES: Cough, Shortness of breath Cardiovascular: DENIES: Chest pain, Palpitations Gastrointestinal: COMPLAINS OF: Abdominal pain, Nausea, Vomiting, DENIES: Difficulty Swallowing Genitourinary: DENIES: Dysuria Integumentary: DENIES: Rash Neurologic: COMPLAINS OF: Headache, DENIES: Localized weakness, Seizures Psychiatric: DENIES: Confusion Past Family Social History Past Medical History Breast cancer status post partial mastectomy, radiation. Ongoing chemotherapy. Past Surgical History Right mastectomy Reported Medications Reported Meds & Active Scripts Active Ativan (Lorazepam) 2 Mg Tab 2 Mg PO Q4H PRN Senna Plus 8.6-50 mg (Sennosides-Docusate Sodium) 1 Tab Tab 2 Tab PO BID Morphine ER (Morphine Sulfate) 60 Mg Tab 60 Mg PO Q8HR Morphine IR (Morphine Sulfate) 30 Mg Tab 30 Mg PO Q6HR Vitamin D3 (Cholecalciferol) 1,000 Unit Tab 1,000 Units PO DAILY Ibuprofen 800 Mg Tab 800 Mg PO Q8H PRN Reported Arimidex (Anastrozole) 1 Mg Tab 1 Mg PO DAILY Allergies: Coded Allergies: Aspirin (Verified Allergy, Severe, Anaphylaxis, 02/07/17) Family History Reviewed and noncontributory. Social History Patient admits to smoking one pack of cigarettes per day for the past 20+ years. She denies alcohol or illicit drugs. Physical Exam Vital Signs Vital Signs Date Time Temp Pulse Resp B/P Pulse Ox O2 Delivery O2 Flow Rate FiO2 02/07/17 09:49 94 Room Air 02/07/17 09:00 64 19 160/76 95 Room Air 02/07/17 07:16 97.7 88 24 156/78 97 Room Air Physical Exam GENERAL: This is a well-nourished, well-developed patient, in no apparent distress. SKIN: Right chest with well-healed scar. HEAD: Atraumatic. Normocephalic. No temporal or scalp tenderness. EYES: Pupils equal round and reactive. Extraocular motions intact. No scleral icterus. No injection or drainage. ENT: Nose without drainage. Uvula midline. Airway patent. NECK: Trachea midline. No JVD or lymphadenopathy. Supple, nontender, no meningeal signs. CARDIOVASCULAR: Regular rate and rhythm without murmurs, gallops, or rubs. RESPIRATORY: Clear to auscultation. Breath sounds equal bilaterally. No wheezes , rales, or rhonchi. GASTROINTESTINAL: Abdomen soft, mild diffuse tenderness to palpation. MUSCULOSKELETAL: Extremities without clubbing, cyanosis, or edema. NEUROLOGICAL: Awake and alert. Cranial nerves II through XII intact. Motor and sensory grossly within normal limits. Five out of 5 muscle strength in all muscle groups. Normal speech. Laboratory Laboratory Tests Test 02/07/17 08:00 White Blood Count 9.1 Red Blood Count 5.01 Hemoglobin 13.8 Hematocrit 40.6 Mean Corpuscular Volume 81.1 Mean Corpuscular Hemoglobin 27.6 Mean Corpuscular Hemoglobin 34.1 Concent Red Cell Distribution Width 15.2 Platelet Count 254 Mean Platelet Volume 9.6 Neutrophils (%) (Auto) 78.1 Lymphocytes (%) (Auto) 9.8 Monocytes (%) (Auto) 10.7 Eosinophils (%) (Auto) 1.0 Basophils (%) (Auto) 0.4 Neutrophils # (Auto) 7.1 Lymphocytes # (Auto) 0.9 Monocytes # (Auto) 1.0 Eosinophils # (Auto) 0.1 Basophils # (Auto) 0.0 CBC Comment DIFF FINAL Differential Comment Prothrombin Time 10.7 Prothromb Time International 1.0 Ratio Activated Partial 25.5 Thromboplast Time Sodium Level 139 Potassium Level 3.4 Chloride Level 105 Carbon Dioxide Level 23.6 Anion Gap 10 Blood Urea Nitrogen 14 Creatinine 0.73 Estimat Glomerular Filtration 83 Rate Random Glucose 108 Calcium Level 8.9 Total Bilirubin 0.3 Aspartate Amino Transf 20 (AST/SGOT) Alanine Aminotransferase 28 (ALT/SGPT) Alkaline Phosphatase 61 Total Protein 7.8 Albumin 3.9 Result Diagram: 02/07/17 0802/07/17 0800 Assessment and Plan Problem List: (1) Intractable pain ICD Code: R52 Status: Acute (2) Nausea & vomiting ICD Code: R11.2 Status: Acute (3) Intracranial hemorrhage ICD Code: I62.9 Status: Acute (4) Osteolytic lesion due to metastasis ICD Code: C79.51 Status: Acute (5) Metastatic breast cancer ICD Code: C50.919 Status: Acute Assessment and Plan 56-year-old female with metastatic breast cancer to the spine and possible skull involvement being admitted for: Intractable abdominal pain, nausea and vomiting: Unsure if related to intracranial processes versus GI. - Supportive care with IV fluid, pain control. - Consult oncology and neurosurgery. - Continue home dose morphine for pain control. Dilaudid for breakthrough. History of subdural hemorrhage: Patient was seen by neurosurgery yesterday but left AMA. - Repeat CT showed stable hemorrhage. - Consult neurosurgery for definitive plans. Metastatic breast cancer involving spine and possibly skull. - Oncology following. Patient has been on anastrozole. Hypokalemia: Replace and monitor. GI prophylaxis: PPI. Stool softener. DVT PPx: SCDs. Chemoprophylaxis contraindicated due to hemorrhage as above. Physician Certification 2 Midnight Certification Type: Admission for Inpatient Services Order for Inpatient Services The services are ordered in accordance with Medicare regulations or non- Medicare payer requirements, as applicable. In the case of services not specified as inpatient-only, they are appropriately provided as inpatient services in accordance with the 2-midnight benchmark. Estimated LOS (days): 5 days is the estimated time the patient will need to remain in the hospital, assuming treatment plan goals are met and no additional complications. Post-Hospital Plan: Not yet determined Melissa Bowden MD Feb 07, 2017 14:03
[2017-02-07] MEDS: HYDROmorphone HCL PF 1 MG/ML VIAL IV PUSH PRN (14:54)
[2017-02-07] MEDS: ONDANSETRON HCL 4 MG/2 ML VIAL IVP PRN (14:59)
[2017-02-07 15:29] LABS: BLOOD, URINE NEG (NEG); COMMENT (UR) CULT NOT INDICATED; CULTURE IF INDICATED CULT NOT INDICATED; GLUCOSE,URINE NEG (NEG); KETONE, URINE NEG (NEG); MUCUS URINE FEW /lpf (OCC); NITRITE,URINE NEG (NEG); SQUAMOUS EPITHELIAL CELL URINE 1 /hpf (0-5); URINE COLOR YELLOW (YELLW/STRAW)
[2017-02-07 16:15] VITALS: BP 142/86; PULSE 64; RESP 16; TEMP 97.9; O2SAT 97
[2017-02-07] MEDS: MORPHINE SULFATE 60 MG CONTROLLED RELEASE TAB PO SCH ×2 (16:28→21:37)
--- NOTE | 2017-02-07 18:44 | HHI.NSPN ---
Note Status Status: Progress Note Interval History Diagnosis Brain mets Interval History This is a 56-year-old female with history of metastatic breast cancer, diagnosed in 2012 when she was living in [facility]. She underwent a right partial mastectomy. 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 She was on palliative therapy with anastrazole. She has been under the care of Dr. Candelaria. CT guided biopsy of metastatic lesion at T10 which confirmed adenocarcinoma from breast primary. She states she started on radiation therapy 01/29/17 and has undergone radiation 02/01-02/04. She missed her treatment today due to intractable vomiting that started around 11 am. She has experienced multiple episodes of emesis. She came to [facility] emergency room. CT brain showed extensive skull metastasis including destruction of the inner table of R temporal bone with associated 5 mm extraaxial hemorrhage . She denies headache, photophobia, visual changes, paresthesias, numbness, seizures, or change in mental status. She complains of bilateral flank pain for "several months". She is on morphine ER 60 mg by mouth every 8 hours and morphine IR 30 mg every 4 hours. The patient was admitted on 02/05 and then left the hospital AMA. She returned today with the same complaints. She reports having 10 episodes of nonbilious nonbloody emesis since this morning. She has persistent midline burning chest pain with associated epigastric and diffuse abdominal pain. She is now requesting admission to the hospital for further treatment. She denies any diarrhea. She reports a mild headache, otherwise no change in vision. No lightheadedness. No difficulty walking. NO NEW NEUROLOGICAL SYMPTIOMS. Neurosurgical consultation was again requested Review of Systems Constitutional: DENIES: Diaphoretic episodes, Fatigue, Fever, Weight gain, Weight loss, Chills, Dizziness, Change in appetite, Night Sweats Endocrine: DENIES: Abnorml menstrual pattern, Heat/cold intolerance, Polydipsia , Polyuria, Polyphagia Eyes: DENIES: Blurred vision, Diplopia, Eye inflammation, Eye pain, Vision loss , Photosensitivity, Double Vision Ears, nose, mouth, throat: DENIES: Tinnitus, Hearing loss, Vertigo, Nasal discharge, Oral lesions, Throat pain, Hoarseness, Ear Pain, Running Nose, Epistaxis, Sinus Pain, Toothache, Odynophagia Respiratory: DENIES: Apneas, Cough, Snoring, Wheezing, Hemoptysis, Sputum production, Shortness of breath Cardiovascular: DENIES: Chest pain, Palpitations, Syncope, Dyspnea on Exertion , PND, Lower Extremity Edema, Orthopnea, Claudication Gastrointestinal: COMPLAINS OF: Nausea, Vomiting, DENIES: Abdominal pain, Black stools, Bloody stools, Constipation, Diarrhea, Difficulty Swallowing, Anorexia Genitourinary: COMPLAINS OF: Sexual dysfunction, DENIES: Abnormal vaginal bleeding, Dysmenorrhea, Dyspareunia, Urinary frequency, Urinary incontinence, Urgency, Hematuria, Dysuria, Nocturia, Vaginal discharge Musculoskeletal: COMPLAINS OF: Joint pain, Muscle aches, Back pain, DENIES: Stiffness, Joint Swelling, Neck pain Integumentary: DENIES: Abnormal pigmentation, Pruritus, Rash, Nail changes, Breast masses, Breast skin changes, Nipple discharge Hematologic/lymphatic: DENIES: Bruising, Lymphadenopathy Immunologic/allergic: DENIES: Eczema, Urticaria Neurologic: DENIES: Abnormal gait, Headache, Localized weakness, Paresthesias, Seizures, Speech Problems, Tremor, Poor Balance Psychiatric: DENIES: Anxiety, Confusion, Mood changes, Depression, Hallucinations, Agitation, Suicidal Ideation, Homicidal Ideation, Delusions Past Family Social History Allergies: Coded Allergies: Aspirin (Verified Allergy, Severe, Anaphylaxis, 02/05/17) Past Medical History Metastatic breast cancer. widely metastatic to bone Past Surgical History Right partial mastectomy Reported Medications Ativan 2 mg every 4 hours when necessary anxiety Senna/docusate 2 mg by mouth twice a day Morphine ER 60 mg by mouth every 8 hours Morphine IR 30 mg by mouth every 4 hours when necessary pain Vitamin D3 1000 units by mouth daily Arimidex 1 mg by mouth daily Active Ordered Medications Current Medications Ondansetron HCl 4 mg 4 mg ONCE ONCE IVP Last administered on 02/05/17 17:28; Start 02/05/17 at 16:00; Stop 02/05/17 at 16:02; Status DC Sodium Chloride (NS 1000 ml Inj) 1,000 ml @ 1,000 mls/hr Q1H IV Last administered on 02/05/17 17:28; Start 02/05/17 at 16:00; Stop 02/05/17 at 16:59 ; Status DC IV Flush (NS Flush) 2 ml UNSCH PRN IVF FLUSH AFTER USING IV ACCESS Last administered on 02/05/17 17:29; Start 02/05/17 at 16:00; Stop 02/05/17 at 20:48 ; Status DC Morphine Sulfate (Morphine Inj) 2 mg ONCE ONCE IV PUSH Last administered on 17:29; Start 02/05/17 at 16:15; Stop 02/05/17 at 16:16; Status DC Hydromorphone HCl (Dilaudid Pf Inj) 1 mg ONCE ONCE IV PUSH Last administered on 02/05/17 17:29; Start 02/05/17 at 17:00; Stop 02/05/17 at 17:01; Status DC Hydromorphone HCl (Dilaudid Pf Inj) 1 mg ONCE ONCE IV PUSH Last administered on 02/05/17 18:10; Start 02/05/17 at 18:00; Stop 02/05/17 at 18:01; Status DC Iohexol (Omnipaque 350 Inj) 94 ml STK-MED ONCE IV Last administered on 18:04; Start 02/05/17 at 18:04; Stop 02/05/17 at 18:05; Status DC Dexamethasone Sodium Phosphate (Decadron Inj) 4 mg Q6HR IV PUSH Last administered on 02/06/17 05:45; Start 02/06/17 at 00:00 Pantoprazole Sodium (Protonix Inj) 40 mg Q12H IV PUSH Last administered on 02/05 19:05; Start 02/05/17 at 19:00; Stop 02/05/17 at 20:52; Status DC Hydromorphone HCl (Dilaudid Pf Inj) 2 mg ONCE ONCE IV PUSH Last administered on 02/05/17 20:25; Start 02/05/17 at 19:30; Stop 02/05/17 at 19:32; Status DC Ondansetron HCl (Zofran Inj) 4 mg ONCE ONCE IV PUSH Last administered on 20:26; Start 02/05/17 at 20:00; Stop 02/05/17 at 20:01; Status DC Morphine Sulfate (Oramorph Sr) 60 mg Q8HR PO Last administered on 02/06/17 07: 02; Start 02/05/17 at 22:00 Morphine Sulfate (Msir) 30 mg Q4H PRN PO PAIN; Start 02/05/17 at 20:00 Ondansetron HCl (Zofran Inj) 4 mg Q6HR PRN IV PUSH nausea; Start 02/06/17 at 02 :00 IV Flush (NS Flush) 2 ml UNSCH PRN IV FLUSH FLUSH AFTER USING IV ACCESS Last administered on 02/06/17 08:02; Start 02/05/17 at 20:30 IV Flush (NS Flush) 2 ml BID IV FLUSH ; Start 02/05/17 at 21:00 Acetaminophen (Tylenol) 650 mg Q6H PRN PO PAIN 1-10 AND/OR FEVER >101F; Start 02/05/17 at 20:30 Hydromorphone HCl (Dilaudid Pf Inj) 2 mg Q3H PRN IV breakthru pain 3-7 or no po Last administered on 02/06/17 03:52; Start 02/05/17 at 20:30 Pantoprazole Sodium (Protonix Inj) 40 mg DAILY IV Last administered on 08:02; Start 02/06/17 at 09:00 Lorazepam (Ativan Inj) 2 mg Q4H PRN IV ANXIETY Last administered on 02/05/17 21:49; Start 02/05/17 at 20:30 Senna/Docusate Sodium (Lindsey-Colace) 2 tab BID PO Last administered on 08:02; Start 02/05/17 at 21:00 Bisacodyl (Dulcolax Supp) 10 mg DAILY PRN RECTAL CONSTIPATION; Start 02/05/17 at 20:30 Temazepam (Restoril) 15 mg HS PRN PO INSOMNIA; Start 02/05/17 at 20:30 Albuterol/ Ipratropium (Duoneb Neb) 1 ampule Q2HR NEB PRN INH WHEEZING; Start 02/05/17 at 20:30 Miscellaneous Information 1 Q361D XX ; Start 02/05/17 at 20:30 Chlorhexidine Gluconate (Chlorhexidine 2% Cloth) 3 pack Taper DAILY@04 TOP Last administered on 02/06/17 03:23; Start 02/06/17 at 04:00; Stop 02/02/18 at 03:59 Chlorhexidine Gluconate 3 pack 3 pack UNSCH PRN TOP HYGIENIC CARE; Start at 20:30 Lactated Ringer's (Lr 1000 ml Inj) 1,000 ml @ 110 mls/hr Q9H6M IV Last administered on 02/06/17 05:45; Start 02/05/17 at 21:00 Dextrose (D50w (Vial) Inj) 25 ml UNSCH PRN IV PUSH HYPOGLYCEMIA-SEE COMMENTS; Start 02/05/17 at 20:45 Glucagon (Glucagon Inj) 1 mg UNSCH PRN OTHER HYPOGLYCEMIA-SEE COMMENTS; Start 02/05/17 at 20:45 Insulin Aspart (NovoLOG SUPPLEMENTAL SCALE) 1 ACHS SLIDING SCALE SQ ; Start 09/14 at 21:00 Hydromorphone HCl (Dilaudid Pf Inj) 4 mg Q3H PRN IV PUSH BREAKTHROUGH PAIN 8- 10 OR PAIN 8-10 AND UNABLE TO TAKE PO; Start 02/05/17 at 20:45 Acetaminophen (Ofirmev Inj) 1,000 mg Q6H PRN IV PAIN 1-2 AND UNABLE TO TAKE PO ; Start 02/05/17 at 20:45 Famotidine (Pepcid) 20 mg ONCE ONCE PO Last administered on 02/05/17 21:21; Start 02/05/17 at 21:00; Stop 02/05/17 at 21:01; Status DC Metoclopramide HCl (Reglan Inj) 10 mg Q8H PRN IV PUSH NAUSEA/VOMITING DESPITE ZOFRAN; Start 02/05/17 at 20:45 Anastrozole (Arimidex) 1 mg DAILY PO Last administered on 02/06/17 08:02; Start 02/06/17 at 09:00 Family History Patient states her father of complications of leukemia No family history of breast cancer Social History She is an ongoing cigarette smoker with a [id number] history Denies use of alcohol or illicit drug use 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 intractable pain from metastatic cancer Labs, Micro, & Vital Signs Results Date Time Temp Pulse Resp B/P Pulse Ox O2 Delivery O2 Flow Rate FiO2 02/07/17 16:15 97.9 64 16 142/86 97 02/07/17 09:49 94 Room Air 02/07/17 09:00 64 19 160/76 95 Room Air 02/07/17 07:16 97.7 88 24 156/78 97 Room Air Constitutional Vital Signs Date Time Temp Pulse Resp B/P Pulse Ox O2 Delivery O2 Flow Rate FiO2 02/07/17 16:15 97.9 64 16 142/86 97 02/07/17 09:49 94 Room Air 02/07/17 09:00 64 19 160/76 95 Room Air 02/07/17 07:16 97.7 88 24 156/78 97 Room Air Review of Systems/Exam Exam Ms Jarrell is alert, awake and oriented to time, place and person. Speech is fluent. Higher cognitive functions are normal. Cranial nerve examination demonstrates the pupils to be equal, round, and reactive to light. Extra-ocular movements are intact. Facial motor and sensory function are normal and symmetrical. Gross hearing is intact, bilaterally. The uvula is midline and elevates symmetrically with the soft palate. Sternocleidomastoid and trapezius muscles have normal and symmetrical strength. Other cranial nerves are intact. Neck is soft and supple. Cervical spine has a full range of motion in anterior flexion, extension, lateral bending, and rotation without pain. There is no tenderness to palpation to the spinous processes or paraspinal muscles. Muscle testing reveals normal bulk and tone overall without rigidity, spasticity , fasciculations, or atrophy. Muscle strength is 5/5 in all muscle groups of both upper extremities including deltoid, biceps, triceps, brachioradialis, wrist extension and outside industrial sales representative. In the lower extremities, strength is 5/5 in both iliopsoas, quadriceps, hamstrings, plantar flexion, dorsiflexion, and extensor hallicus longus. Sensory examination is intact to light touch and sharp/dull discrimination in both the upper and lower extremities, symmetrically. Deep tendon reflexes are 2+ and symmetrical in the biceps, triceps, and brachioradialis, bilaterally, in the upper extremities. In the lower extremities , the patellar and Achilles are 2+, bilaterally. There is a bilateral plantar flexion response. Hoffmanns sign is negative. There is no clonus or other abnormal reflexes noted. Cerebellar examination is intact to [id number] test, rapid rhythmic alternating motion. There is no dysmetria, dysdiadochokinesia, truncal ataxia, or tremor. Medications Current Medications Current Medications Ondansetron HCl 4 mg 4 mg ONCE ONCE IVP Last administered on 02/07/17 08:06; Start 02/07/17 at 08:00; Stop 02/07/17 at 08:01; Status DC Sodium Chloride (NS 1000 ml Inj) 1,000 ml @ 1,000 mls/hr Q1H IV Last administered on 02/07/17 08:06; Start 02/07/17 at 07:57; Stop 02/07/17 at 08:56 ; Status DC IV Flush (NS Flush) 2 ml UNSCH PRN IVF FLUSH AFTER USING IV ACCESS; Start 02/07 at 08:00; Stop 02/07/17 at 11:16; Status DC Morphine Sulfate 5 mg 5 mg ONCE ONCE IV PUSH Last administered on 02/07/17 08 :06; Start 02/07/17 at 08:00; Stop 02/07/17 at 08:01; Status DC Sodium Chloride (NS 1000 ml Inj) 1,000 ml @ 999 mls/hr BOLUS ONCE IV Last administered on 02/07/17 08:06; Start 02/07/17 at 08:00; Stop 02/07/17 at 09:00 ; Status DC Lorazepam (Ativan Inj) 1 mg ONCE ONCE IV PUSH Last administered on 02/07/17 08:22; Start 02/07/17 at 08:15; Stop 02/07/17 at 08:16; Status DC Ondansetron HCl (Zofran Inj) 4 mg ONCE ONCE IVP Last administered on 09:47; Start 02/07/17 at 09:15; Stop 02/07/17 at 09:16; Status DC Promethazine HCl 25 mg 25 mg ONCE ONCE PO Last administered on 02/07/17 09:47 ; Start 02/07/17 at 09:30; Stop 02/07/17 at 09:31; Status DC Potassium Chloride 100 ml @ 50 mls/hr Q2H IV Last administered on 02/07/17 13 :19; Start 02/07/17 at 10:15; Stop 02/07/17 at 14:14; Status DC Potassium Chloride/Dextrose/ Sod Cl (D5-1/2 NS + KCl 20 Meq Inj) 1,000 ml @ 100 mls/hr Q10H IV Last administered on 02/07/17 13:19; Start 02/07/17 at 12: 00 IV Flush (NS Flush) 2 ml UNSCH PRN FLUSH FLUSH AFTER USING IV ACCESS; Start 11/14 at 11:00 IV Flush (NS Flush) 2 ml BID FLUSH ; Start 02/07/17 at 21:00 Acetaminophen (Tylenol) 650 mg Q4H PRN PO TEMP > 100.4; Start 02/07/17 at 11:00 Ondansetron HCl (Zofran Inj) 4 mg Q6H PRN IVP NAUSEA OR VOMITING Last administered on 02/07/17 14:59; Start 02/07/17 at 11:00 Metoclopramide HCl (Reglan Inj) 5 mg Q6H PRN IV PUSH NAUSEA OR VOMITING Last administered on 02/07/17 16:28; Start 02/07/17 at 11:00 Magnesium Hydroxide (Milk Of Magnesia Liq) 30 ml Q12H PRN PO CONSTIPATION; Start 02/07/17 at 11:00 Temazepam (Restoril) 15 mg HS PRN PO INSOMNIA; Start 02/07/17 at 21:00 Naloxone HCl (Narcan Inj) 0.4 mg UNSCH PRN IV SEE LABEL COMMENTS; Start at 11:00 Lorazepam (Ativan) 2 mg Q4H PRN PO anxiety; Start 02/07/17 at 11:30 Morphine Sulfate (Oramorph Sr) 60 mg Q8HR PO Last administered on 02/07/17 16: 28; Start 02/07/17 at 14:00 Senna/Docusate Sodium (Lindsey-Colace) 2 tab BID PO ; Start 02/07/17 at 21:00 Morphine Sulfate (Msir) 30 mg Q4H PRN PO PAIN GREATER THAN 5; Start 02/07/17 at 13:45 Pantoprazole Sodium (Protonix Inj) 40 mg ONCE ONCE IV PUSH Last administered on 02/07/17 14:53; Start 02/07/17 at 13:45; Stop 02/07/17 at 13:48; Status DC Pantoprazole Sodium (Protonix) 40 mg DAILY PO ; Start 02/08/17 at 09:00 Hydromorphone HCl (Dilaudid Pf Inj) 1 mg Q4H PRN IV PUSH BREAKTHROUGH PAIN Last administered on 02/07/17t 14:54; Start 02/07/17 at 14:00 Medical Decision Making MDM Remarks Last Impressions Abdomen/Pelvis CT 02/05/17 1636 Signed Impressions: Service Date/Time: Sunday, February 05, 2017 17:49 - CONCLUSION: 1. Widespread bony metastatic disease again noted. 2. However, no evidence of metastatic disease within the abdomen or pelvis. The nodular left adrenal gland is similar to before, not convincingly metastatic. 3. Unchanged 3 mm nonobstructing stone of the right kidney. Jag Mckeon MD Head CT 02/05/17 1600 Signed Impressions: Service Date/Time: Sunday, February 05, 2017 17:46 - CONCLUSION: 1. Diffuse skull involvement by metastatic disease. 2. 3.6 cm area of bone destruction involving the right temporal bone and with an adjacent small extra-axial hemorrhage that I believe is probably subdural but could be epidural. Jag Mckeon MD Plan Plan Remarks 56 year old Pain secondary to metastatic breast cancer Multiple vertebral metastatic lesions Multiple skull metastatic lesions including cortical destruction R temporal bone with erosion of inner table and underlying subdural hemorrhage Attending Statement I again reviewed her clinical and radiological studies. NOTHIONG HAS CHANGED. neuro checks in a serial fashion. SURGERY IS NOT INDICATED. MRI brain has been recommended as well as radiation oncology Respiratory. pulmonary toilette, nasotracheal suction, and breathing treatments with nebulizers. PT and OT Nutrition. NPO until nauseas resxolve Renal. monitor closely urine output, BUN and creatinine Nausea and intractable vomiting. Zofran 4 mg IV every 6 hours. Phenergan out of stock. Reglan if needed. Continue senna/docusate for bowel regimen Metastatic breast cancer. Continue arimidex 1 mg po daily consult oncology Status post radiation therapy vertebral mets. 3/3 and 3/6-3/9. Endocrine. Monitor serial Acu checks and SSI for tight control ID monitor for signs of infection Protonix for stress ulcer prophylaxis Geovanni hose and SCD's for DVT prophylaxis Further recommendations will be provided depending on the patient clinical evaluation and follow up studies. Lan Nassar MD Feb 07, 2017 18:44
[2017-02-07] MEDS: MORPHINE SULFATE 30 MG TAB PO PRN (19:47)
[2017-02-07] MEDS: SODIUM CHLORIDE 0.9% FLUSH 5 ML FLUSH FLUSH SCH (19:49)
[2017-02-07] MEDS: DOCUSATE SODIUM 50 MG/SENNA 8.6 MG TAB PO SCH (19:51)
[2017-02-07 20:00] VITALS: BP 110/69; PULSE 74; RESP 17; TEMP 97.8; O2SAT 95
[2017-02-07] MEDS ORDERED: TEMAZEPAM 15 MG CAP PO PRN (21:00)
[2017-02-08] VITALS: BP 107/66; PULSE 76; RESP 17; TEMP 98.4; O2SAT 95
[2017-02-08 04:00] VITALS: BP 99/53; PULSE 80; RESP 16; TEMP 97.6; O2SAT 96
[2017-02-08] MEDS: MORPHINE SULFATE 60 MG CONTROLLED RELEASE TAB PO SCH ×2 (05:28→14:34)
[2017-02-08] MEDS: ONDANSETRON HCL 4 MG/2 ML VIAL IVP PRN (05:29)
[2017-02-08 06:56] LABS: BASOPHIL % 0.6 % (0.0-2.0); EOSINOPHIL # 0.2 TH/MM3 (0-0.4); EOSINOPHIL % 3.3 % (0.0-4.0); HEMATOCRIT 35.4 % (35.0-46.0); HEMO FLAGS DIFF FINAL; LYMPH % 20.3 % (9.0-44.0); MEAN CELL VOLUME 82.1 FL (80.0-100.0); MEAN CORPUSCULAR HEMOGLOBIN 27.5 PG (27.0-34.0); MEAN CORPUSCULAR HGB CONC 33.5 % (32.0-36.0); MONO % 12.8 % (0.0-8.0); PLATELET COUNT 159 TH/MM3 (150-450); RED BLOOD COUNT 4.31 MIL/MM3 (4.00-5.30); WHITE BLOOD COUNT 4.8 TH/MM3 (4.0-11.0)
[2017-02-08 07:27] LABS: BICARBONATE 25.2 MEQ/L (21.0-32.0); POTASSIUM 3.9 MEQ/L (3.5-5.1)
[2017-02-08 08:00] VITALS: BP 85/56; PULSE 66; RESP 16; TEMP 98.3; O2SAT 94
[2017-02-08] MEDS: SODIUM CHLORIDE 0.9% FLUSH 5 ML FLUSH FLUSH SCH (08:26)
[2017-02-08] MEDS: D5-1/2 NS + KCL 20 MEQ INJ 1,000 ML IV SCH (08:26)
[2017-02-08] MEDS: DOCUSATE SODIUM 50 MG/SENNA 8.6 MG TAB PO SCH (08:27)
[2017-02-08] MEDS: MORPHINE SULFATE 30 MG TAB PO PRN (08:29)
--- NOTE | 2017-02-08 08:40 | PD.CONS ---
History of Present Illness Service Hematology/oncology Consult Requested By Hospitalist service. Reason for Consult Metastatic breast carcinoma with extensive bony metastases. Primary Care Physician Wang Candelaria MD Diagnoses: (1) Metastatic breast cancer (2) Osteolytic lesion due to metastasis History of Present Illness Chief complaint: Severe nausea, vomiting, severe back pain. History of present illness: This is a 56-year-old lady who is a [place] of the [facility], she lived and worked most of her life in [place] and [facility] and then later moved to the [facility]. She was reportedly diagnosed in 2013 with locally advanced breast carcinoma for right breast. She underwent partial right mastectomy followed by radiation treatment, she was reportedly recommended adjuvant systemic chemotherapy but declined. In 2014 she presented with metastatic breast carcinoma with extensive bony metastases involving her vertebral bodies and pelvis. She was living in [place] at that time. She reportedly was treated with palliative systemic chemotherapy and received Herceptin; indicating HER-2 positive disease. She however at some point in 2015 relocated to the [facility]. She had no follow-up and did not bring any records with her. She presented to [facility] in October 2016 with complaints of severe intractable pain in her back and pelvis. Imaging studies revealed findings consistent with metastatic disease to the vertebral bodies with multiple levels heavily involved with disease. A CT-guided biopsy of one of the pelvic lesions was performed in early November 2016 but this was nondiagnostic. She subsequently underwent a CT- guided biopsy of one of the lesions involving the T-10 vertebral body and vertebral body pedicle, last week this confirmed the presence of metastatic breast carcinoma and receptor status including HER-2/olu amplification testing is pending. For management of her severe back pain she was initiated palliative radiation about a week ago and is undergoing multilevel radiation to the mid and lower thoracic vertebral bodies. After 5 fractions of radiation she developed severe nausea and vomiting and one of the differential diagnosis was radiation related nausea. She was sent in to the emergency department from radiation oncology on 2016 and was in fact admitted to the hospital. CT imaging of the head was done to rule out intracranial metastases and she was actually found to have a bone- based metastases involving the right parietal bone, Montoya with this was an intracranial hemorrhage without significant mass effect. Patient was a valid by neurosurgery and was recommended observation and supportive care. On 02/06/2017 she left the hospital AGAINST MEDICAL ADVICE, she had to come back to the hospital the following day as her symptoms of nausea vomiting and pain were uncontrolled at home. She has now been readmitted. Review of Systems Constitutional: COMPLAINS OF: Fatigue, Change in appetite, DENIES: Diaphoretic episodes, Fever, Weight gain, Weight loss, Chills, Dizziness, Night Sweats Endocrine: DENIES: Abnorml menstrual pattern, Heat/cold intolerance, Polydipsia , Polyuria, Polyphagia Eyes: DENIES: Blurred vision, Diplopia, Eye inflammation, Eye pain, Vision loss , Photosensitivity, Double Vision Ears, nose, mouth, throat: DENIES: Tinnitus, Hearing loss, Vertigo, Nasal discharge, Oral lesions, Throat pain, Hoarseness, Ear Pain, Running Nose, Epistaxis, Sinus Pain, Toothache, Odynophagia Respiratory: COMPLAINS OF: Cough, Sputum production, DENIES: Apneas, Snoring, Wheezing, Hemoptysis, Shortness of breath Cardiovascular: COMPLAINS OF: Dyspnea on Exertion, DENIES: Chest pain, Palpitations, Syncope, PND, Lower Extremity Edema, Orthopnea, Claudication Gastrointestinal: COMPLAINS OF: Nausea, Vomiting, Anorexia, DENIES: Abdominal pain, Black stools, Bloody stools, Constipation, Diarrhea, Difficulty Swallowing Genitourinary: DENIES: Abnormal vaginal bleeding, Dysmenorrhea, Dyspareunia, Sexual dysfunction, Urinary frequency, Urinary incontinence, Urgency, Hematuria , Dysuria, Nocturia Musculoskeletal: COMPLAINS OF: Joint pain, Muscle aches, Stiffness, Back pain, DENIES: Joint Swelling, Neck pain Integumentary: DENIES: Abnormal pigmentation, Pruritus, Rash, Nail changes, Breast masses, Breast skin changes, Nipple discharge Hematologic/lymphatic: DENIES: Bruising, Lymphadenopathy Immunologic/allergic: DENIES: Eczema, Urticaria Neurologic: COMPLAINS OF: Headache, Poor Balance, DENIES: Abnormal gait, Localized weakness, Paresthesias, Seizures, Tremor Psychiatric: COMPLAINS OF: Anxiety, Depression, DENIES: Confusion, Mood changes, Hallucinations, Agitation, Suicidal Ideation, Homicidal Ideation, Delusions Except as stated in HPI: all other systems reviewed are Neg Past Family Social History Allergies: Coded Allergies: Aspirin (Verified Allergy, Severe, Anaphylaxis, 02/07/17) Past Medical History Metastatic breast carcinoma next number Chronic pain Tobaccoism Anxiety/depression. Bony metastatic disease Past Surgical History Partial right mastectomy (performed in [place]) CT-guided biopsy pelvic bone CT-guided biopsy of thoracic 10th vertebral body Open biopsy vertebral bodies (performed in [place]) Active Ordered Medications D5 half-normal saline 100 mL/h Tylenol 650 mg every 4 hours as needed for fever Docusate/senna 2 tablets by mouth twice a day Hydromorphone 1 mg every 4 hours as needed for breakthrough pain Lorazepam 2 mg by mouth every 4 hours as needed for anxiety Milk of magnesia 30 mils by mouth every 12 hours for constipation Medical per minute 5 mg IV every 6 hours as needed for nausea and vomiting Morphine sulfate immediate release 30 mg by mouth every 4 hours as needed for pain Morphine sulfate extended release 60 mg by mouth every 8 hours Nicotine patch 14 mg per 24 hours transdermal daily Zofran 4 mg IV every 6 hours as needed for nausea and vomiting Pantoprazole 40 mg by mouth daily Promethazine 25 mg by mouth as needed Temazepam 15 mg by mouth daily at bedtime as needed for insomnia Family History Father of leukemia Mother is Social History Originally from the [facility], she lived and worked most of her life in [facility]. Has 1 adult daughter who lives in [place] She presently lives with her long-term male partner in the [place] area. 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 Physical Exam Vital Signs Vital Signs Date Time Temp Pulse Resp B/P Pulse Ox O2 Delivery O2 Flow Rate FiO2 02/08/17 08:00 98.3 66 16 85/56 94 02/08/17 04:00 97.6 80 16 99/53 96 02/08/17 00:00 98.4 76 17 107/66 95 02/07/17 20:00 97.8 74 17 110/69 95 02/07/17 16:15 97.9 64 16 142/86 97 02/07/17 09:49 94 Room Air 02/07/17 09:00 64 19 160/76 95 Room Air Physical Exam GENERAL: Middle-aged female, laying in bed, appears to be comfortable at this time. SKIN: No rashes, ecchymoses or lesions. Cool and dry. HEAD: Atraumatic. Normocephalic. No temporal or scalp tenderness. EYES: Pupils equal round and reactive. Extraocular motions intact. No scleral icterus. No injection or drainage. ENT: Nose without bleeding, purulent drainage or septal hematoma. Throat without erythema, tonsillar hypertrophy or exudate. Uvula midline. Airway patent. NECK: Trachea midline. No JVD or lymphadenopathy. Supple, nontender, no meningeal signs. CARDIOVASCULAR: Regular rate and rhythm without murmurs, gallops, or rubs. RESPIRATORY: Clear to auscultation. Breath sounds equal bilaterally. No wheezes , rales, or rhonchi. GASTROINTESTINAL: Abdomen soft, non-tender, nondistended. No hepato-splenomegaly , or palpable masses. No guarding. MUSCULOSKELETAL: Tenderness over the midline of the back, no bruises, good muscle mass tone and strength. NEUROLOGICAL: Awake and alert. Cranial nerves II through XII intact. Motor and sensory grossly within normal limits. Five out of 5 muscle strength in all muscle groups. Normal speech. Laboratory Laboratory Tests Test 02/07/17 02/08/17 14:59 06:10 Urine Color YELLOW Urine Turbidity CLEAR Urine pH 7.0 Urine Specific Laughlin 1.012 Urine Protein NEG Urine Glucose (UA) NEG Urine Ketones NEG Urine Occult Blood NEG Urine Nitrite NEG Urine Bilirubin NEG Urine Urobilinogen LESS THAN 2.0 Urine Leukocyte Esterase SMALL Urine RBC 1 Urine WBC 4 Urine Squamous Epithelial 1 Cells Urine Mucus FEW Microscopic Urinalysis Comment CULT NOT INDICATED White Blood Count 4.8 Red Blood Count 4.31 Hemoglobin 11.8 Hematocrit 35.4 Mean Corpuscular Volume 82.1 Mean Corpuscular Hemoglobin 27.5 Mean Corpuscular Hemoglobin 33.5 Concent Red Cell Distribution Width 15.0 Platelet Count 159 Mean Platelet Volume 8.9 Neutrophils (%) (Auto) 63.0 Lymphocytes (%) (Auto) 20.3 Monocytes (%) (Auto) 12.8 Eosinophils (%) (Auto) 3.3 Basophils (%) (Auto) 0.6 Neutrophils # (Auto) 3.0 Lymphocytes # (Auto) 1.0 Monocytes # (Auto) 0.6 Eosinophils # (Auto) 0.2 Basophils # (Auto) 0.0 CBC Comment DIFF FINAL Differential Comment Sodium Level 139 Potassium Level 3.9 Chloride Level 105 Carbon Dioxide Level 25.2 Anion Gap 9 Blood Urea Nitrogen 9 Creatinine 0.66 Estimat Glomerular Filtration 93 Rate Random Glucose 97 Calcium Level 7.7 Result Diagram: 02/08/17 0610 02/08/[address] scan of the head without contrast dated 02/07/2017: 1. Persistent right bone lesion with a thin area of extra-axial soft tissue/ density/hemorrhage, significant mass effect is not seen. Multiple sclerotic bone lesions are noted. Assessment and Plan Assessment and Plan 56-year-old female with metastatic breast carcinoma, reportedly she had HER-2 amplified disease. All further care and previous diagnostic workup between 2013 in 2016 was provided in [place] and [facility]. I do not have access to those records. Since she has been in [place] we have been attempting to establish the diagnosis based on pathology. Last week she underwent CT-guided biopsy of the rest the 10th vertebral body and this and from the diagnosis of adenocarcinoma of breast primary. Receptor status is pending at this time. She has been initiated on palliative radiation to the heavily involved lower thoracic vertebral bodies. She presents the hospital with complaints of headache, nausea and vomiting. CT images of the head revealed a metastatic deposit involving the right frontal bone, no significant intracranial abnormality was identified other than a thin area of intracranial soft tissue/hemorrhage. She has been seen by the neurosurgeons recommend supportive care and medical management. Plan: Continue supportive care with IV fluid hydration and antiemetics. Continue pain medications with long and short acting opioids. Resume radiation to the lower thoracic vertebral bodies. Await the results of the molecular testing that has been ordered on the thoracic vertebral body biopsy from last week. Should she have her to amplified disease I will start her on a palliative systemic chemotherapy regimen which will include Herceptin. Please discharge home when she is able to take in and hold down oral intake. It may be reasonable to send her home on a low dose of dexamethasone perhaps 2 mg twice daily would be reasonable dosing for management of nausea. I would also recommend continuation of Reglan 5 mg 3 times a day for management of nausea. Wang Candelaria MD Feb 08, 2017 08:39
[2017-02-08] MEDS ORDERED: NICOTINE 14 MG/24 HR PATCH TD SCH (09:00)
[2017-02-08] MEDS ORDERED: DEXAMETHASONE 0.5 MG TAB PO SCH (09:00)
[2017-02-08] MEDS ORDERED: PANTOPRAZOLE SOD 40 MG DELAYED RELEASE TAB PO SCH (09:00)
[2017-02-08 09:29] VITALS: BP 106/69
[2017-02-08] MEDS: HYDROmorphone HCL PF 1 MG/ML VIAL IV PUSH PRN (09:32)
[2017-02-08 12:00] VITALS: BP 108/69; PULSE 79; RESP 18; TEMP 97.6; O2SAT 94
[2017-02-08] MEDS ORDERED: PANT40TA3 PO (12:51)
[2017-02-08] MEDS ORDERED: METO5TAB PO (12:51)
[2017-02-08] MEDS ORDERED: DEXA0.5T PO (12:51)
--- NOTE | 2017-02-08 12:52 | HHI.DCPOC ---
Discharge Care Plan Diagnosis: (1) Intractable nausea and vomiting (2) Metastatic breast cancer Goals to Promote Your Health * To prevent worsening of your condition and complications * To maintain your health at the optimal level Directions to Meet Your Goals Take your medications as prescribed Follow your dietary instruction Follow activity as directed Keep your appointments as scheduled Take your immunizations and boosters as scheduled If your symptoms worsen call your PCP, if no PCP go to Urgent Care Center or Emergency Room Smoking is Dangerous to Your Health. Avoid second hand smoke Call the 24-hour hour crisis hotline for domestic abuse at Melissa Bowden MD Feb 08, 2017 12:52
--- NOTE | 2017-02-08 12:54 | HHI.PR ---
Subjective Remarks Patient reports feeling better. Tolerated reg. breakfast. Comfortable to go home. Objective Vitals Vital Signs Date Time Temp Pulse Resp B/P Pulse Ox O2 Delivery O2 Flow Rate FiO2 02/08/17 09:29 106/69 02/08/17 08:00 98.3 66 16 85/56 94 02/08/17 04:00 97.6 80 16 99/53 96 02/08/17 00:00 98.4 76 17 107/66 95 02/07/17 20:00 97.8 74 17 110/69 95 02/07/17 16:15 97.9 64 16 142/86 97 I/O 02/07/17 02/07/17 02/07/17 02/08/17 02/08/17 02/08/17 07:00 15:00 23:00 07:00 15:00 23:00 Intake Total 1212 ml Balance 1212 ml Intake IV Total 1212 ml Result Diagram: 02/08/17 0610 02/08/17 0610 Imaging Last Impressions Head CT 02/07/1714 Signed Impressions: Service Date/Time: Tuesday, February 07, 2017 09:30 - CONCLUSION: 1. Persistent right bone lesion with a thin area of extra-axial soft tissue density/hemorrhage, significant mass effect is not seen. 2. Multiple sclerotic bone lesions. Jag Santiago MD Objective Remarks GENERAL: This is a well-nourished, well-developed patient, in no apparent distress. CARDIOVASCULAR: Regular rate and rhythm without murmurs, gallops, or rubs. RESPIRATORY: Clear to auscultation. Breath sounds equal bilaterally. No wheezes , rales, or rhonchi. GASTROINTESTINAL: Abdomen soft, non-tender, nondistended. Normal active bowel sounds MUSCULOSKELETAL: Extremities without clubbing, cyanosis, or edema. NEURO: Alert & Oriented x4 to person, place, time, situation. Moves all ext x4 A/P Problem List: (1) Intractable pain ICD Code: R52 Status: Acute (2) Nausea & vomiting ICD Code: R11.2 Status: Acute (3) Intracranial hemorrhage ICD Code: I62.9 Status: Acute (4) Osteolytic lesion due to metastasis ICD Code: C79.51 Status: Acute (5) Metastatic breast cancer ICD Code: C50.919 Status: Acute Assessment and Plan 56-year-old female with metastatic breast cancer to the spine and possible skull involvement admitted for intractable nausea and vomiting. Evaluation and treatment course below: Intractable abdominal pain, nausea and vomiting: - Patient treated with supportive care with IV fluid, pain control. - Patient evaluated by Oncologist who advised Decadron. Patient symptoms resolved with the steroids and she was discharged home on same to follow up outpatient. - Continue home dose morphine for pain control. History of subdural hemorrhage: Patient was seen by neurosurgery yesterday but left AMA. - Repeat CT showed stable hemorrhage. - Neurosurgery evaluated the patient and advised medical management. Metastatic breast cancer involving spine and possibly skull. - Oncology will follow outpatient. Patient has been on anastrozole. Hypokalemia: Replaced Patient DC home in good condition Diet: Regular Activity: Regular Follow up with: Oncology and PCP Meds: Per med recs. Melissa Bowden MD Feb 08, 2017 12:54
--- NOTE | 2017-02-08 14:58 | EKG ---
Date Performed: 02/07/2017 Time Performed: 08:17:42 PTAGE: 56 years EKG: Sinus rhythm MARKED LEFT AXIS DEVIATION INCOMPLETE RIGHT BUNDLE BRANCH BLOCK MODERATE T-WAVE ABNORMALITY, CONSIDE R ANTERIOR ISCHEMIA ABNORMAL ECG Compared to prior tracing no significant change PREVIOUS TRACING : 02/05/2017 17.20 DOCTOR: Mirtha Anderson Interpretating Date/Time 02/08/2017 14:51:57
[2017-02-08] MEDS ORDERED: REMOVE OLD NICODERM (NICOTINE) PATCH TD SCH (21:00)
== END 2017-02-08 14:50 | disposition home or self-care (01) | DRG 948 ==
LOC: NEPC 07:13 → NEDA 10:38 → HOCB 16:15
PROVIDERS: ADMIT Family Medicine; ATTEND Family Medicine
DX: G89.3 Neoplasm related pain (acute) (chronic) (principal); C79.51 Secondary malignant neoplasm of bone; C50.911 Malignant neoplasm of unspecified site of right female breast; Z92.3 Personal history of irradiation; R11.2 Nausea with vomiting, unspecified; F17.210 Nicotine dependence, cigarettes, uncomplicated; E87.6 Hypokalemia; F32.9 Major depressive disorder, single episode, unspecified; F41.9 Anxiety disorder, unspecified
CPT/HCPCS: 70450; 80048; 80053; 81001; 85025; 85610; 85730; 93005; 96361; 96374; 96375; 96376; C9113; J1170; J2060; J2270; J2405; J2765; J3480; J7030; J8540; Q0169

== ENCOUNTER 2017-11-25 13:07 | Day surgery (SDC) | payer MEDICARE, OTHER ==
[~2017-11-25 13:07] MED LIST changes: +ANAS1 PO; -ANASTROZOLE PO; +DEXA0.5T PO; -IBUP800T23 PO; +METO5TAB PO; +PANT40TA3 PO
[2017-11-25 13:25] VITALS: BP 121/57; PULSE 109; RESP 20; TEMP 98.1; O2SAT 98
--- NOTE | 2017-11-26 07:41 | RADRPT ---
EXAM DATE/TIME: 11/25/2017 00:00 [facility] COMPARISON : No previous studies available for comparison. INDICATIONS : CONSULT FOR NERVE ROOT INJECTION OBJECTIVE: Temperature: 98.1 Heart Rate: 109 Blood Pressure: 121/57 Respiratory: 18 Oximetry: 98 PNEUMONIA VACCINE: YES HISTORY OF PRESENT ILLNESS: 57-year-old female with history of metastatic breast CA with MRI examination in December demonstratin g diffuse osseous metastases and epidural tumor at T7-8. Subsequent imaging in September again demonst rates diffuse osseous metastases but no leptomeningeal extension or pathologic fracture. Imaging of t he lumbar spine in August demonstrates similar findings of diffuse osseous metastases without pathol ogic fracture or leptomeningeal extension. Patient describes sporadic severe primarily left lower lila k pain radiating to the buttocks and anteriorly to the lower quadrants with sensation of bloating. Pa in is not associated or exacerbated by anything particular with apparent random onset throughout the day. Patient describes the pain as severe and sharp 7-10/10. She denies any urinary or bowel incontin ence. She denies any significant lower extremity weakness, numbness or lower extremity radiculopathy. PAST MEDICAL HISTORY : 1. Carcinoma, breast. 2. Metastatic, bone. PAST SURGICAL HISTORY : 1. None. SOCIAL HISTORY : No alcohol use. Tobacco; Patient has a ALLERGIES: 1. ASPIRIN 2. IBOPROFEN MEDICATIONS: 1. MORPHINE 30MG/60 mg t.i.d. 2. ATIVAN 2MG mg b.i.d. PHYSICAL EXAMINATION: General: No acute distress Back: No tenderness on palpation of the spinous processes Neurological: Grossly intact. ASSESSMENT: 57-year-old female with history of widely metastatic breast CA and likely multifactorial lower back p ain with mechanical, biological and neurological components. Suspect large component of radiculopathy corresponding to the left L3, L4 and L5 dermatomes. It is certainly very reasonable to attempt nerve root injections which will have both therapeutic and diagnostic intent. If patient has short term bu t significant pain relief, she may benefit from nerve root ablation or intrathecal pump placement. PLAN: Left L3, left L4 and left L5 nerve root injections. TIME SPENT: 20 minutes Aron Rashid MD on November 26, 2017 at 7:29 Board Certified Radiologist. This report was verified electronically.
== END 2017-11-25 14:46 | disposition home or self-care (01) ==
LOC: HROP 13:07 → HRIP 13:10 → HROP 14:46
PROVIDERS: ATTEND Specialist
DX: C79.51 Secondary malignant neoplasm of bone (principal); C50.911 Malignant neoplasm of unspecified site of right female breast

== ENCOUNTER 2017-11-26 11:10 | Day surgery (SDC) | payer MEDICARE, OTHER ==
[2017-11-26] MEDS ORDERED: IOHEXOL 300 MG/ML 50 ML BTL (for RAD DIAG) OTHER ONE (11:11)
[2017-11-26 11:28] VITALS: BP 116/85; PULSE 105; RESP 20; TEMP 98; O2SAT 96
[2017-11-26] MEDS ORDERED: BUPIVACAINE HCL PF 0.75% 30 ML VIAL ONE (12:10)
[2017-11-26] MEDS ORDERED: TRIAMCINOLONE ACETONIDE 40 MG/ML VIAL ONE (12:11)
[2017-11-26 13:00] VITALS: BP 100/65; PULSE 82; RESP 20; TEMP 98.1; O2SAT 95
[2017-11-26 15:00] VITALS: BP 109/64; PULSE 98; RESP 18; O2SAT 98
--- NOTE | 2017-11-26 16:57 | RADRPT ---
EXAM DATE/TIME: 11/26/2017 12:19 [facility] COMPARISON: No previous studies available for comparison. INDICATIONS : Patient with a history of low back pain. MEDICAL HISTORY : Breast CA SURGICAL HISTORY : None. ENCOUNTER: Initial ACUITY: >1 year PAIN SCORE: 2/10 LOCATION: Left hip FLUORO TIME: 1.9 minutes IMAGE SERIES: 0 CONTRAST: 0.5 cc Omnipaque (iohexol) 300 ACCESS LEVEL: Left L4 MEDICATIONS: 1.) 40 mg triamcinolone (Kenalog) IA 2.) 2 cc bupivacaine (Marcaine) IA RESPONSE: Pre procedure pain level was 2/10. Post procedure pain level was 0/10. PROCEDURE : 1. Fluoroscopically guided nerve root injection. The risks, benefits and alternatives to the procedure were explained and verbal and written consent w as obtained. The site was prepped in sterile fashion. Full sterile technique was used, including ca p, mask, sterile gloves and gown and a large sterile sheet. Hand hygiene and 2% chlorhexidine and/or betadine/alcohol prep was utilized per protocol for cutaneous antisepsis. The skin and subcutaneous tissues were infiltrated with local anesthetic solution. With fluoroscopic guidance the targeted nerve root was localized and positive contrast was injected t o confirm epidural spread. Following this the prescribed medication was injected surrounding the ner ve root sleeve. The patient's preprocedure pain and post procedure pain levels were recorded. CONCLUSION: Uncomplicated fluoroscopically guided nerve root injection as above. Aron Rashid MD on November 26, 2017 at 16:55 Board Certified Radiologist. This report was verified electronically.
== END 2017-11-26 15:53 | disposition home or self-care (01) ==
LOC: HROP 11:10 → HRIP 11:11 → HROP 15:53
PROVIDERS: ATTEND Specialist
DX: M54.5 Low back pain (principal); Z85.3 Personal history of malignant neoplasm of breast
CPT/HCPCS: 64483; 64484; J3301; Q9967